=== PATIENT | male | born 1940 | race Caucasian/White ===

== ENCOUNTER → 2018-04-08 12:42 | Outpatient (CLI) | payer MEDICARE, OTHER, SELFPAY ==
--- NOTE | 2018-04-08 12:53 | RAD_ITS ---
STUDY: SWALLOWING STUDY REASON FOR EXAM: Male, 77 years old. Dysphagia. TECHNIQUE: The examination was performed with Speech Pathology in attendance. Under fluoroscopic observation, the patient ingested thin barium, thick barium, barium pudding, and barium coated cracker. FLUOROSCOPY TIME: 1:49 minutes/seconds. 1627 spot images. RADIOLOGIST INVOLVEMENT: Radiologist was present and providing direct supervision. COMPARISON: None. FINDINGS: The following was observed during swallowing of the various mixtures of barium: Thin Barium: Transient penetration with evacuation upon ingestion of thin liquids. This improves with the chin tuck maneuver and small-volume swallows. Barium Pudding: There was no evidence of aspiration or laryngeal penetration. Barium Coated Cracker: There was no evidence of aspiration or laryngeal penetration. RAD/Swallowing Function w/Video IMPRESSION: Penetration and evacuation with ingestion of thin liquids. This improves with the chin tuck maneuver and small-volume swallows. The swallow study findings were discussed with the patient by the speech pathologist at the conclusion of the examination. Please see speech pathology report for more information and recommendations. Electronically Signed: Yobany Colon MD at 13:50 EDT Tel [phone], Service support ,
--- NOTE | 2018-04-08 13:00 | SP.MBSS_ITS ---
PRIMARY / SECONDARY DIAGNOSIS: dysphagia (R13.10) REFERRING PHYSICIAN: Dr. Mason Beauchamp MD CURRENT DIET: regular textures, thin liquids DENTITION: WFL MENTAL STATUS: WNL RESPIRATORY STATUS: O2 via room air PREVIOUS MODIFIED BARIUM SWALLOW STUDY: none REASON FOR REFERRAL: Patient is a 77 year old male referred for a modified barium swallow (MBS) study to objectively assess the Patients oropharyngeal swallow function under fluoroscopy secondary to reported intermittent globus sensation during ingestion of solids textures. Patient reports intermittent coughing with and without intake, attributes to cough drops. 11/24/[address] revealed no acute findings; no metastatic disease. 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 STUDY FINDINGS: Patient participated in a Modified Barium Swallow (MBS) study on 04/07/2018. Dr. Colon was the radiologist present for this evaluation. This study was recorded in the lateral view and images were sent to PACs for storage. The following consistencies were presented to this patient for analysis of oropharyngeal swallow function: thin liquids, pudding, and a regular textured, Lila Doone cookie. Results of the MBS are as follows: PENETRATION / ASPIRATION SCALE (HASTINGS): 1 = does not enter airway 2 = enters airway/above vocal folds/ejected 3 = enters airway/above vocal folds/not ejected 4 = enters airway/contacts vocal folds/ejected 5 = enters airway/contacts vocal folds/not ejected 6 = enters airway/below vocal folds/ejected 7 = enters airway/below vocal folds/not ejected despite effort 8 = enters airway/below vocal folds/no effort PENETRATION / ASPIRATION SCALE (SCORE): Thin liquids via cup (sequential swallows): 4 Thin liquids via cup (single sip): 2 Thin liquids via cup (single sip): 2 Thin liquids via cup (chin tuck): 1 Thin liquids via cup (chin tuck): 1 Thin liquids via cup (chin tuck): 1 Thin liquids via straw (chin tuck): 1 Pudding via spoon: 1 Regular textured cookie: 1 Thin liquids via straw (chin tuck): 1 Thin liquids via straw (chin tuck): 1 IMPRESSION: DIAGNOSIS: mild pharyngeal dysphagia (R13.13) ORAL PHASE CHARACTERIZED BY: LABIAL SEAL: no labial escape TONGUE CONTROL DURING BOLUS MANIPULATION: cohesive bolus between tongue to palatal seal BOLUS PREPARATION / MASTICATION: timely and efficient chewing and mashing BOLUS TRANSPORT / LINGUAL MOTION: brisk tongue motion ORAL RESIDUE: trace residue lining oral structures PHARYNGEAL PHASE CHARACTERIZED BY: INITIATION OF PHARYNGEAL SWALLOW: bolus head in pyriforms at first hyoid excursion SOFT PALATE ELEVATION: no bolus between soft palate and pharyngeal wall LARYNGEAL ELEVATION: complete superior movement of thyroid cartilage with complete approximation of arytenoids cartilage to epiglottic petiole ANTERIOR HYOID EXCURSION: partial anterior movement EPIGLOTTIC MOVEMENT: complete epiglottic inversion LARYNGEAL VESTIBULE CLOSURE AT HEIGHT OF SWALLOW: complete laryngeal vestibule closure with no air/contrast in laryngeal vestibule PHARYNGEAL STRIPPING WAVE: pharyngeal stripping wave present / complete PHARYNGOESOPHAGEAL SEGMENT OPENING: complete distension and complete duration with no obstruction of flow TONGUE BASE RETRACTION: trace column of contrast between tongue base and posterior pharyngeal wall PHARYNGEAL RESIDUE: collection of residue within or on pharyngeal structures ESOPHAGEAL PHASE CHARACTERIZED BY: ESOPHAGEAL BOLUS CLEARANCE IN THE UPRIGHT POSITION: could not view EFFECTS OF TREATMENT STRATEGIES ATTEMPTED: Chin tuck posture = effective Reduced bolus size = effective DIET TEXTURE RECOMMENDATIONS: Will recommend a regular textured, thin liquid diet. COMPENSATORY STRATEGIES RECOMMENDED: Chin tuck, reduced bolus volume, seated upright at 90 degrees during PO intake INTERPRETATION OF RESULTS: Patient presents with mild pharyngeal dysphagia (R13.13). Pharyngeal phase marked by impaired pharyngeal swallow onset timing resulting in suboptimal bolus location upon swallow onset contributing to prandial penetration with thin liquids without execution of the chin tuck posture; reduced closure of the airway during deglutition attributed to reduced anterior hyoid excursion, sufficient laryngeal vestibule pressure generated to expel penetrated material. All deficits ameliorated with execution of chin tuck posture and bolus volume adjustments. Unexplained area of suspected calcification somewhat adjacent to C- 3 cervical vertebra that was noted to move somewhat superiorly and anteriorly during deglutition. Mild cervical osteophytes located at the C-3 to C-6 levels, no effect on pharyngoesophageal motility RECOMMENDATIONS: Patient requires 1-2 additional skilled speech-language intervention targeting continued diet texture management; and more importantly training and implementation of recommended compensatory strategies. ADDITIONAL COMMENTS/RECOMMENDATIONS: Results and recommendations were discussed with the Patient immediately following MBS completion, with the Patient verbalizing understanding and agreement with all recommendations and education provided. IMAGE COUNT: [id number] G-CODES: SWALLOWING [id number] Current Status: CI SWALLOWING [id number] Goal Status: CH SWALLOWING [id number] Discharge Status: CI
== END ==
PROVIDERS: Family Provider Family Medicine; PCP Family Medicine; Visit Provider Otolaryngology
DX: R13.10 Dysphagia, unspecified (principal)
CPT/HCPCS: 74230

== ENCOUNTER → 2018-04-11 08:02 | Outpatient (CLI) | payer MEDICARE, OTHER, SELFPAY ==
--- NOTE | 2018-04-11 08:20 | RAD_ITS ---
STUDY: X-RAY - ESOPHAGUS (BARIUM SWALLOW) WITH FLUOROSCOPY REASON FOR EXAM: Male, 77 years old. One-month history of dysphagia. TECHNIQUE: 18 view(s) of the esophagus were obtained following swallowing of barium. FLUOROSCOPY TIME (if supplied): (0:29) minutes/seconds COMPARISON: None. FINDINGS: There is no demonstrated esophageal foreign body. Circumferential narrowing of the distal esophagus at the level of the gastroesophageal junction. Normal gastroesophageal junction, without a demonstrated hiatal hernia. The patient ingested a 12 mm tablet of barium without any difficulty. There is atherosclerotic calcification of the aortic arch with tortuosity of the descending aorta. Normal visualized pulmonary parenchyma. There are diffuse degenerative changes of the visualized thoracic spine. RAD/Esophagus Only IMPRESSION: Circumferential narrowing of the distal esophagus at the level of the gastroesophageal junction. The patient was able to pass the 12 mm tablet of barium through the distal esophagus.. Electronically Signed: Yobany Colon MD at 9:05 EDT Tel [phone], Service support ,
== END ==
PROVIDERS: Family Provider Family Medicine; PCP Family Medicine; Visit Provider Otolaryngology
DX: R13.10 Dysphagia, unspecified (principal)
CPT/HCPCS: 74220; 92610; G8996; G8997; G8998

== ENCOUNTER → 2018-07-28 13:17 | Outpatient (CLI) | payer MEDICARE, OTHER, SELFPAY ==
--- NOTE | 2018-07-28 13:20 | CT_ITS ---
STUDY: CT MAXILLOFACIAL SINUSES REASON FOR EXAM: Male, 77 years old. Sinusitis RADIATION DOSAGE (If Supplied By Facility): CTDIvol = ( 33.45 ) mGy, DLP = ( 859.99 ) mGycm TECHNIQUE: The patient was scanned in a multi detector CT scanner. High resolution axial imaging was performed without the administration of intravenous contrast material. Sagittal and coronal images were reconstructed. # of Images: 738 Individualized dose optimization techniques were used for this CT. COMPARISON: None. FINDINGS: FRONTAL SINUSES: Normal aeration, without mucosal inflammatory disease. ETHMOIDAL SINUSES: Normal aeration, without mucosal inflammatory disease. MAXILLARY SINUSES: Normal aeration, without mucosal inflammatory disease. SPHENOIDAL SINUSES: Normal aeration, without mucosal inflammatory disease. There is patency of the bilateral maxillary infundibuli with normal uncinate processes, ethmoid bullae, and hiatus semilunaris. Normal bilateral middle turbinates. Normal bilateral inferior turbinates. Normal midline nasal septum. There is patency of the bilateral nasal airways. The visualized osseous structures are normal. The visualized bilateral orbital contents are normal. CT/Sinus/Facial Bone IMPRESSION: No evidence of sinusitis. Electronically Signed: Arjun Bhakta MD at 4:26 EDT Tel , Service support ,
== END ==
PROVIDERS: Family Provider Family Medicine; PCP Family Medicine; Referring Provider Otolaryngology; Visit Provider Otolaryngology
DX: J32.9 Chronic sinusitis, unspecified (principal)
CPT/HCPCS: 70486

== ENCOUNTER 2018-10-04 21:14 | Inpatient (IN) | payer MEDICARE, OTHER, SELFPAY ==
[2018-09-21 15:47] VITALS: BMI 32.6
[2018-10-04] VITALS (11 sets, daily range): BP systolic 140–176; BP diastolic 75–92; PULSE 60–81; RESP 15–25; TEMP 36.3–36.8; O2SAT 92–96; BMI 34.2; BMI 32.7
--- NOTE | 2018-10-04 21:27 | EKG12_ITS ---
Test Reason : REPEAT Blood Pressure : / mmHG Vent. Rate : 065 BPM Atrial Rate : 065 BPM P-R Int : 158 ms QRS Dur : 082 ms QT Int : 438 ms P-R-T Axes : 036 -17 -39 degrees QTc Int : 455 ms Normal sinus rhythm Leftward axis Marked ST abnormality, possible inferior lateral subendocardial injury Abnormal ECG Confirmed by PAUL NAVA, YUNIOR ([id number]), supervising film or videotape editor LAITH THORNTON ([id number]) on 10/07/2018 3:19:28 PM Referred By: LINDSEY Confirmed By:YUNIOR MILLER MD
--- NOTE | 2018-10-04 21:29 | ED.VISSUMM ---
- ER Visit Summary Date of Service: 10/04/18 Chief Complaint: Chest pain History of Present Illness: The patient is a 77 M sudden onset midsternal chest pain rating left shoulder 2 hours ago while leaving a [employer]. Denied nausea dyspnea or diaphoresis. Symptoms was worsening when went home. Took a full dose aspirin. EMS was called, given 2 additional nitroglycerin, symptoms almost gone. States he has been having intermittent chest pains and tingling in hands and feet recently was referred Dr. Jackman on September 21. Reports has a stress test upcoming. States today's pain was different and more severe. History of hypertension hypercholesterolemia. Stroke history with no residuals. No cardiac history. States he smoked when he is 18. Father with [place] at age 51. No recent travel, surgeries, or immobilizations. No history of PE or DVT. Denies any recent cough. Physical Examination: General: Alert and oriented ?3, no acute distress HEENT: Normocephalic, atraumatic. Moist mucosa membranes Neck: supple, nontender. Cardiovascular: Regular rate and rhythm, no murmurs Respiratory: Normal breath sounds, symmetric, no distress Abdomen: Soft, nontender, nondistended Extremities: Nontender, no edema, pulses intact ?4 Neuro: no focal neurological deficits. Test Results: EKG: Sinus rate of 80. There is isolated aVR ST elevation with depressions on inferior lateral leads. Nonspecific T wave inversion in leads III. EKG #2 improving findings. Hemoglobin stable. Troponin 0.3. Chest x-ray negative. Emergency Department Course and Treatment: Patient was almost improved symptoms after nitro by EMS. EKG noted inferior lateral ST depressions with isolated AVR elevation. Placed on Nitropaste he took his full dose aspirin at home prior to arrival. Put a page out to cardiology and spoke with Dr. Lowyr, discussed findings. Discussed he is symptom-free after nitro paste. During discussion labs returned, troponin elevated. Requested repeat EKG was obtained and normal EKGs were sent to him for evaluation. Did recommend 180 mg of Brilinta, heparin drip. Potassium 3.2 which is orally replaced. He recommended observations ICU for close monitoring. He will plan to do heart cath in the morning unless he becomes symptomatic prior to this. He requested a call back if symptoms return. I spoke with hospitalist, Dr. Henry updated on plan of care and calling cardiology if he becomes symptomatic. Treatment Plan: [] Disposition: Admission Impression: 1. NSTEMI 2. Acute coronary syndrome This note was generated with [employer] dictation software. It may contain incorrect words, spelling, and punctuation that were not noted in review of the chart prior to signing ED Disposition - Plan for ED Patient: Disposition: Acute [facility] Chief Complaint: Chest Pain Diagnosis: NSTEMI (non-ST elevated myocardial infarction), Acute coronary syndrome
--- NOTE | 2018-10-04 21:32 | ED.DCSUM_ITS ---
- ER Visit Summary Date of Service: 10/04/18 Chief Complaint: Chest pain History of Present Illness: The patient is a 77 M sudden onset midsternal chest pain rating left shoulder 2 hours ago while leaving a [employer] party. Denied nausea dyspnea or diaphoresis. Symptoms was worsening when went home. Took a full dose aspirin. EMS was called, given 2 additional nitroglycerin, symptoms almost gone. States he has been having intermittent chest pains and tingling in hands and feet recently was referred Dr. Jackman on September 21. Reports has a stress test upcoming. States today's pain was different and more severe. History of hypertension hypercholesterolemia. Stroke history with no residuals. No cardiac history. States he smoked when he is 18. Father with [place] at age 51. No recent travel, surgeries, or immobilizations. No history of PE or DVT. Denies any recent cough. Physical Examination: General: Alert and oriented ?3, no acute distress HEENT: Normocephalic, atraumatic. Moist mucosa membranes Neck: supple, nontender. Cardiovascular: Regular rate and rhythm, no murmurs Respiratory: Normal breath sounds, symmetric, no distress Abdomen: Soft, nontender, nondistended Extremities: Nontender, no edema, pulses intact ?4 Neuro: no focal neurological deficits. Test Results: EKG: Sinus rate of 80. There is isolated aVR ST elevation with depressions on inferior lateral leads. Nonspecific T wave inversion in leads III. EKG #2 improving findings. Hemoglobin stable. Troponin 0.3. Chest x-ray negative. Emergency Department Course and Treatment: Patient was almost improved symptoms after nitro by EMS. EKG noted inferior lateral ST depressions with isolated AVR elevation. Placed on Nitropaste he took his full dose aspirin at home prior to arrival. Put a page out to cardiology and spoke with Dr. Lowry, discussed findings. Discussed he is symptom-free after nitro paste. During discussion labs returned, troponin elevated. Requested repeat EKG was obtained and normal EKGs were sent to him for evaluation. Did recommend 180 mg of Brilinta, heparin drip. Potassium 3.2 which is orally replaced. He recommended observations ICU for close monitoring. He will plan to do heart cath in the morning unless he becomes symptomatic prior to this. He requested a call back if symptoms return. I spoke with hospitalist, Dr. Henry updated on plan of care and calling cardiology if he becomes symptomatic. Treatment Plan: [] Disposition: Admission Impression: 1. NSTEMI 2. Acute coronary syndrome This note was generated with [employer] dictation software. It may contain incorrect words, spelling, and punctuation that were not noted in review of the chart prior to signing ED Disposition - Plan for ED Patient: Disposition: Acute [facility] Chief Complaint: Chest Pain Diagnosis: NSTEMI (non-ST elevated myocardial infarction), Acute coronary syndrome
--- NOTE | 2018-10-04 21:35 | ED.RN ---
NO OLD EKG FOUND.
--- NOTE | 2018-10-04 21:41 | RAD_ITS ---
STUDY: X-RAY CHEST REASON FOR EXAM: Male, 77 years old. Chest pain. TECHNIQUE: Single AP portable view of the chest. COMPARISON: CT of the chest dated November 23, 2016. FINDINGS: Cardiac monitoring leads are present. The lungs are hyperexpanded. There are patchy lucencies particularly at the lung apices that may be the result of emphysema. There is patchy groundglass attenuation and initial thickening present in both lungs. There is no demonstrated pleural abnormality. There is borderline cardiomegaly. Normal mediastinum and christine. There is prominence of the pulmonary hilar arteries with peripheral pulmonary vascular congestion. There is atherosclerotic calcification of the aortic arch with tortuosity. There are diffuse degenerative changes of the visualized thoracic spine. There are degenerative changes of both shoulders. There is no demonstrated abnormality of the visualized soft tissue structures of the upper abdomen. RAD/Chest 1 View (Portable) IMPRESSION: Mild pulmonary congestion. Electronically Signed: Tia Mayo MD at 22:42 EST , Service support ,
[2018-10-04 21:42] LABS: International Normalized Ratio 0.9; Prothrombin Time (Protime)PT. 12.5 SECONDS (11.7-14.9)
[2018-10-04] MEDS: Nitroglycerin Oint 1 INCH PACKET TRANSDERM. (21:43)
[2018-10-04 21:44] LABS: Absolute Lymphocyte Count 1.36 X10^3/ul (0.83-4.51); Absolute Neutrophil Count 5.3 X10^3/uL (2.0-7.7); Basophil# 0.02 X10^3/uL; Basophil% 0.3 % (0-1); Eosinophil# 0.21 X10^3/uL; Eosinophils% 2.8 % (0-5); Hemoglobin 16.4 g/dl (13.0-16.5); Lymphocyte # 1.36 X10^3/ul (4.0); Lymphocyte % 18.3 % (19-41); Mean Corp Hgb Conc 34.2 g/gl (32-36); Mean Corpuscular Hgb 35.3 pg (27.0-32.0); Mean Corpuscular Volume 103.4 fL (80-94); Mean Platelet Vol. 10.5 fl (6.2-12.0); Monocyte# 0.51 X10^3/uL; Monocyte% 6.9 % (0-10); Neutrophil # 5.31 X10^3/uL (2.7-7.7); Neutrophil % 71.4 % (47-70); POSITIVE COUNT NO; POSITIVE DIFFERENTIAL NO; POSITIVE MORPHOLOGY NO; Platelet Count 176 K/mm3 (150-450); RBC Distribution Width CV 13.8 % (11.6-14.6); Red Blood Count 4.64 M/mm3 (4.6-6.2); White Blood Count 7.4 K/mm3 (4.4-11.0)
[2018-10-04 21:52] LABS: Anion Gap 9 (5-15); BUN 19 mg/dL (7-18); BUN/Creat Ratio 15.4 RATIO (10-20); Calcium,Total 8.3 mg/dL (8.5-10.1); Chloride 107 mmol/L (98-107); Creatinine, Serum 1.23 mg/dL (0.70-1.30); EST Glomerular Filtration Rate 61 mL/min (>60); Est Glom Filt Rate - Afr Amer 73 mL/min (>60); Estimated Creatinine Clearance 48.66 ml/min; Glucose 140 mg/dL (74-106); Potassium 3.2 mmol/L (3.5-5.1); Sodium Level 144 mmol/L (136-145)
--- NOTE | 2018-10-04 21:58 | EKG12_ITS ---
Test Reason : CP Blood Pressure : / mmHG Vent. Rate : 080 BPM Atrial Rate : 080 BPM P-R Int : 148 ms QRS Dur : 082 ms QT Int : 404 ms P-R-T Axes : 034 -22 -29 degrees QTc Int : 465 ms Normal sinus rhythm Leftward axis Marked ST abnormality, possibly inferior lateral subendocardial injury Abnormal ECG Confirmed by PAUL NAVA, YUNIOR ([id number]), newspaper editor managing LAITH THORNTON ([id number]) on 10/07/2018 3:20:39 PM Referred By: LINDSEY MORAN Confirmed By:YUNIOR MILLER MD
[2018-10-04] MEDS: TICAGRELOR 90 MG TABLET 180 MG PO (22:15)
[2018-10-04] MEDS: Heparin Injection (Vial) 5,000 UNIT/ML VIAL 4000 UNIT IV (22:19)
[2018-10-04] MEDS: HEPARIN/D5w 25,000 UNITS 25,000 UNITS/250 ML IV.SOLN. 10 UNITS IV (22:20)
--- NOTE | 2018-10-04 22:20 | HP.PCM_ITS ---
Problem List (1) NSTEMI (non-ST elevated myocardial infarction) Status: Acute (2) Essential (primary) hypertension Status: Chronic (3) Hyperlipidemia Status: Chronic History of Present Illness Date of Admission: 10/04/18 Chief Complaint: chest pain The patient is a 77 year old M with a significant history of colorectal cancer status post surgery with colostomy, radiation and chemotherapy; hypertension; hyperlipidemia who presented with progressively worsening left-sided chest pain that started a few hours before presented to the ED. Patient was leaving a libertarian and while walking he began to have sudden onset progressively worsening chest pain. He describes chest pain as sharp and continuous. It is nonradiating. He denies any nausea, vomiting or diaphoresis. His chest pain worsens with exertion and improves with rest. Patient reports that in the past he has had chest pain but not as severe as today. Typically patient take full dose of aspirin every day. On the morning of his admission he took a full day aspirin. Because of chest pain he took an additional dose of full strength aspirin later in the day. The paramedics gave patient 2 tablets of nitroglycerin which resolved his pain. He reports long- standing generalized tingling sensation which also occurs at his chest. Patient was following up with Dr. Jackman outpatient and he had outpatient stress test for October 24 scheduled. At emergency department patient was found to have ST elevation in aVR and ST depression in the inferior leads. Equipment Detailer, Dr. Lowry was consulted and patient was started on heparin bolus and drip; and Brilinta. Nitroglycerin was placed on his chest. Emergency department doctor reports that per Dr. Lowry if patient has chest pain on the night of admission he (Dr. Lowry) should be notified. If patient has no chest pain overnight, cardiology will see patient in a.m. Reportedly patient's father from heart attack at age 51. Patient reports of a brother who had attack in his late 60s. 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 Rectal cancer C20 Concussion S06.0X9A Allergies Penicillins Adverse Reaction (Verified 10/04/18 21:20) Unknown Home Medications: Ambulatory Orders Medication Instructions Recorded Aspirin [Aspirin, Baby] 325 mg PO DAILY@0800 12/24/14 Pravastatin [Pravachol] 80 mg PO DAILY 12/24/14 Triamterene 75MG/Hctz 50MG 0.5 tab PO DAILY 12/24/14 [Maxzide] amlodipine 5 mg tablet 5 mg PO DAILY 09/21/18 captopril 50 mg tablet 100 mg PO BID tab 09/21/18 omega-3 fatty acids 1,000 mg 1,000 mg PO TID 09/21/18 capsule omeprazole 40 mg capsule,delayed 40 mg PO DAILY 09/21/18 release oxybutynin chloride 5 mg tablet 5 mg PO BID 09/21/18 L.acidoph,Paracasei, B.lactis 1 each PO DAILY 10/04/18 [Probiotic] Tramadol HCl [Tramadol HCl ER] 50 mg PO 4X/DAY PRN 10/04/18 Vitamin B Complex [B Complex] 2 each PO DAILY 10/04/18 Surgical History: Surgical History (Last Reviewed 10/05/18 @ 07:44 by Ciaran Henry MD) History of colon resection Onset Date: ~2014 Z98.890, Z90.49 History of colostomy Lives: With Family Smoking Status: Former smoker Alcohol: Occasional - *Family History Maternal Family History: Family History (Last Updated 10/05/18 @ 07:46 by Ciaran Henry MD) Mother Breast cancer Father Heart disease Brother Myocardial infarction Review of Systems Constitutional: Denies: Chills, Fever, Weight Change HEENT: Denies: Head Aches, Sinus Congestion, Sinus Drainage Cardiovascular: Reports: Chest Pain. Denies: Palpitations Respiratory: Denies: Cough, Shortness of breath at rest, Sputum production Gastrointestinal: Denies: Abdominal Pain, Nausea, Vomiting Genitourinary: Denies: Dysuria Musculoskeletal: Denies: Joint Pain, Joint Tenderness Skin: Denies: Rash, Wounds Neurological: Reports: Tingling. Denies: Focal weakness, Numbness Psychiatric: Denies: Anxiety, Depression, Homicidal Ideations, Suicidal Ideations Hematologic/ Lymphatic: Denies: Easy Bruising, Easy Bleeding VTE Information - Inpt Only VTE Present on Admission: No VTE Mechan Device Prophylaxis: None VTE Pharm Prophylaxis ordered?: No Reason prophylaxis not ordered:: Treatment Not Indicated - Patient on heparin drip for non-STEMI Patient Problems: Active and Suspected Problems (Last Reviewed 10/05/18 @ 07:44 by Ciaran Henry MD) NSTEMI (non-ST elevated myocardial infarction) (Acute) Acute coronary syndrome (Acute) - Physical Exam General: Alert, Oriented x3, Cooperative HEENT: Atraumatic, PERRLA, EOMI, Normocephalic Neck: Supple, No JVD, Negative Carotid Bruits Lungs: Clear to auscultation, Normal air movement, Tachypneic Cardiovascular: Regular rate, No murmurs Abdomen: Bowel Sounds Present, Soft, Non Tender, - - Colostomy in place. Extremities: No edema, Capillary Refill Less than 3 Seconds Skin: No rashes, No breakdown Musculoskeletal: No Tenderness to Palpation of Joints or Extremities Neurological: Neuro grossly intact Psych/Mental Status: Normal Affect, Appropriate Vital Signs Temp Pulse Resp BP Pulse Ox 98.2 F 67 22 H 144/78 H 92 10/04/18 21:15 10/04/18 21:43 10/04/18 21:15 10/04/18 21:43 10/04/18 21:15 Oxygen Delivery Method Room Air Weight: 102.058 kg Body Mass Index (BMI) 34.2 Laboratory Tests Past 24 Hrs 10/04/18 10/04/18 10/04/18 21:25 21:25 21:25 WBC 7.4 RBC 4.64 Hgb 16.4 Hct 48.0 MCV 103.4 H MCH 35.3 H MCHC 34.2 RDW 13.8 RDW Differential 52.0 H Plt Count 176 MPV 10.5 Immature Gran % (Auto) 0.300 Neut % (Auto) 71.4 H Lymph % (Auto) 18.3 L [place] % (Auto) 6.9 Eos % (Auto) 2.8 Baso % (Auto) 0.3 Absolute Neuts (auto) 5.3 Absolute Lymphs (auto) 1.36 Total Counted Not Reportable PT 12.5 INR 0.9 APTT 30.0 Sodium 144 Potassium 3.2 L Chloride 107 Carbon Dioxide 28.0 Anion Gap 9 BUN 19 H Creatinine 1.23 Estim Creat Clear Calc 48.66 Est GFR (MDRD) Af Amer 73 Est GFR (MDRD) Non-Af 61 BUN/Creatinine Ratio 15.4 Glucose 140 H Calcium 8.3 L Troponin I 0.371 H Assessment/Plan All Active Problems (Last Reviewed 10/05/18 @ 07:44 by Ciaran Henry MD) NSTEMI (non-ST elevated myocardial infarction) (Acute) Acute coronary syndrome (Acute) Claudication (Acute) Dyspnea on exertion (Acute) The patient is a 77 year old M with a significant history of colorectal cancer status post surgery with colostomy, radiation and chemotherapy; hypertension; hyperlipidemia who presented with progressively worsening left-sided chest pain and found to have ST elevation in aVR and ST depression in the inferior leads; and also elevated troponin. NSTEMI Patient with chest pain; abnormal EKG and elevated troponin. Admit to a monitored bed on ICU CXR independently reviewed confirms no acute cardiopulmonary process. EKG independently reviewed confirms ST elevation in aVR and ST depression in inferior leads. Received a total dose of 648 mg of aspirin on the day of admission ASA 81 mg p.o. daily ordered Home Pravastatin discontinued. Lipitor 80 mg ordered. Fasting lipids ordered. Continue heparin infusion started at the emergency department. Patient already received bolus heparin at the ED. SL NTG 0.4 mg prn as needed for chest pain Serial cardiac enzymes Stat EKG as needed for chest pain Patient was admitted the night. Cardiology to see patient in a.m. if patient does not have any chest pain on the night of admission. Hypertension On admission blood pressure was not within goal Home amlodipine; captopril; triamterene/hydrochlorothiazide continued We will add low-dose Coreg twice daily. Trend blood pressure and adjust blood pressure medication as necessary Overactive bladder Oxybutynin continued. History of Colorectal cancer status post colectomy with colostomy; radiation and chemotherapy. Reports that colorectal cancer is in remission. Ostomy nurse consult for colostomy care and recommendations. DVT prophylaxis Not indicated patient because patient is already on treatment dose for heparin for NSTEMI. Code Visit Inpatient E&M: 64267 Init Hosp L3
--- NOTE | 2018-10-04 23:37 | EKG12_ITS ---
Test Reason : AM EKG Blood Pressure : / mmHG Vent. Rate : 069 BPM Atrial Rate : 069 BPM P-R Int : 164 ms QRS Dur : 080 ms QT Int : 444 ms P-R-T Axes : 045 019 -03 degrees QTc Int : 475 ms Normal sinus rhythm Low voltage QRS Nonspecific ST abnormality Abnormal ECG Confirmed by PAUL NAVA, YUNIOR ([id number]), sound editor LAITH THORNTON ([id number]) on 10/07/2018 3:43:30 PM Referred By: FRANCIE Confirmed By:YUNIOR MILLER MD
[2018-10-05] VITALS (25 sets, daily range): BP systolic 130–178; BP diastolic 74–112; PULSE 62–95; RESP 16–29; TEMP 36.3–37.4; O2SAT 93–97
[2018-10-05] MEDS: Nitroglycerin Oint 1 INCH PACKET TRANSDERM. ×3 (00:29→14:10)
[2018-10-05] MEDS: Carvedilol 3.125 MG TABLET PO ×2 (02:39→08:05)
[2018-10-05] MEDS: 0.9% Normal Saline 1,000 ML 75 ML IV (02:39)
[2018-10-05] MEDS: 0.9% NaCl Peripheral Flush Adult/Peds IV ×2 (02:40→08:04)
[2018-10-05 05:02] LABS: Hematocrit 40.9 % (40-54); Hemoglobin 14.9 g/dl (13.0-16.5); Mean Corp Hgb Conc 36.4 g/gl (32-36); Mean Corpuscular Hgb 36.7 pg (27.0-32.0); Mean Corpuscular Volume 100.7 fL (80-94); Mean Platelet Vol. 10.8 fl (6.2-12.0); Platelet Count 173 K/mm3 (150-450); RBC Distribution Width CV 13.3 % (11.6-14.6); RBC Distribution Width SD 49.6 fl (35.1-43.9); Red Blood Count 4.06 M/mm3 (4.6-6.2); Scan Indicated on CBC? Y/N NO
[2018-10-05 05:09] LABS: Partial Thromboplast Time 58.4 Seconds (24.1-36.2)
[2018-10-05 05:15] LABS: Anion Gap 9 (5-15); BUN 18 mg/dL (7-18); BUN/Creat Ratio 17.5 RATIO (10-20); Calcium,Total 8.1 mg/dL (8.5-10.1); Chloride 108 mmol/L (98-107); Creatinine, Serum 1.03 mg/dL (0.70-1.30); EST Glomerular Filtration Rate 74 mL/min (>60); Est Glom Filt Rate - Afr Amer 90 mL/min (>60); Estimated Creatinine Clearance 58.11 ml/min; Glucose 102 mg/dL (74-106); Potassium 3.3 mmol/L (3.5-5.1); Sodium Level 145 mmol/L (136-145)
--- NOTE | 2018-10-05 07:51 | PCM.CONS.C ---
Reason for Consult Date of Consultation: 10/05/18 History of Present Illness: The patient is a 77 year old white male with a past medical history including hypertension, hyperlipidemia, rectal carcinoma (in remission), who is being referred for concerns of an acute non-ST segment elevation TN. He has previously been evaluated in the outpatient setting based upon bilateral upper extremity tingling sensations. He is tentatively been scheduled for an outpatient exercise tolerance test/imaging study in October 2018. In the interim he presented to the hospital yesterday after experiencing chest discomfort, bilateral upper extremity tingling sensation, and feeling somewhat dyspneic. He was noted to have on emergency department evaluation and abnormal ECG demonstrating sinus rhythm with ST segment changes demonstrating possible elevation in aVR and ST segment depression in the inferior lateral leads. He was placed in the ICU for further evaluation care. His cardiac enzymes have been followed and his troponin I levels are positive. His ECG changes appear to be resolving. He was placed on medical management which included aspirin, Brilinta, IV heparin, beta-blockers, in addition to lipid-lowering agents. At the present time he states he is feeling better with no ongoing chest discomfort. He states he has not had any cardiovascular evaluation in the past to the best of his knowledge. [] Past Medical History Allergies/Adverse Reactions: Allergies Penicillins Adverse Reaction (Verified 10/04/18 21:20) Unknown Home Medications: Ambulatory Orders Medication Instructions Recorded Aspirin [Aspirin, Baby] 325 mg PO DAILY@0800 12/24/14 Pravastatin [Pravachol] 80 mg PO DAILY 12/24/14 Triamterene 75MG/Hctz 50MG 0.5 tab PO DAILY 12/24/14 [Maxzide] amlodipine 5 mg tablet 5 mg PO DAILY 09/21/18 captopril 50 mg tablet 100 mg PO BID tab 09/21/18 omega-3 fatty acids 1,000 mg 1,000 mg PO TID 09/21/18 capsule omeprazole 40 mg capsule,delayed 40 mg PO DAILY 09/21/18 release oxybutynin chloride 5 mg tablet 5 mg PO BID 09/21/18 L.acidoph,Paracasei, B.lactis 1 each PO DAILY 10/04/18 [Probiotic] Tramadol HCl [Tramadol HCl ER] 50 mg PO 4X/DAY PRN 10/04/18 Vitamin B Complex [B Complex] 2 each PO DAILY 10/04/18 Past Medical History (Chronic Problems): Chronic Problems (Last Reviewed 10/05/18 @ 07:44 by Ciaran Henry MD) Chest pain (Chronic) Essential (primary) hypertension (Chronic) Hyperlipidemia (Chronic) Lives: Spouse/ Significant Other Smoking Status: Former smoker Tobacco Use: Non-smoker Alcohol: None Drugs: None Review of Systems - Review of Systems General: Denies: Fever, Night Sweats, Fatigue Cardiovascular: Reports: Chest Discomfort, Chest Discomfort at Rest, Chest Discomfort with Exertion, Shortness of Breath, Shortness of Breath at Rest, Shortness of Breath with Exertion. Denies: Orthopnea, PND, Peripheral Edema, Palpitations, Lightheadedness, Dizziness, Near Syncope, Syncope Respiratory: Denies: Cough, Sputum Production, Hemoptysis Gastrointestinal: Denies: Hematemesis, Hematochezia, Melena Genitourinary: Denies: Dysuria, Hematuria Skin: Denies: Rash Subjectve: This is a 77-year-old white male who appears to be resting comfortably at the moment in no acute distress. Objective: Vital Signs Temp Pulse Resp BP Pulse Ox 99.3 F H 71 24 H 152/85 H 94 10/05/18 04:00 10/05/18 07:00 10/05/18 07:00 10/05/18 07:00 10/05/18 07:00 Oxygen Flow Rate (L/min) 2 Oxygen Delivery Method Room Air Weight: 216 lb 4.375 oz Body Mass Index (BMI) 32.7 Intake and Output for Last 24 Hours 10/03/18 10/04/18 10/05/18 23:59 23:59 23:59 Intake Total 277.6 / 277.6 Output Total 650 / 650 Balance -372.4 / -372.4 General: Awake, Alert, Oriented x 3, Cooperative, No Acute Distress HEENT: Atraumatic, Normocephalic, PERRL, EOMI, Sclera Non Icteric Oral: Moist Mucosa Neck: Supple, Good ROM, No JVD Lungs: Clear to auscultation Cardiovascular: Regular Rhythm, Normal S1, Normal S2 Vascular: No Carotid Bruits Abdomen: Bowel Sounds Present, Soft, Non Tender Extremities: No Cyanosis, No Clubbing, No edema Neurological: No Focal Motor or Sensory Deficit Psych/Mental Status: Appropriate, Normal Affect 10/04/18 21:25: WBC 7.4, RBC 4.64, Hgb 16.4, Hct 48.0, MCV 103.4 H, MCH 35.3 H, MCHC 34.2, RDW 13.8, RDW Differential 52.0 H, Plt Count 176, MPV 10.5, Immature Gran % (Auto) 0.300, Neut % (Auto) 71.4 H, Lymph % (Auto) 18.3 L, [place] % (Auto) 6.9, Eos % (Auto) 2.8, Baso % (Auto) 0.3, Absolute Neuts (auto) 5.3, Total Counted Not Reportable 10/04/18 21:25: PT 12.5, INR 0.9, APTT 30.0 10/04/18 21:25: Sodium 144, Potassium 3.2 L, Chloride 107, Carbon Dioxide 28.0, Anion Gap 9, BUN 19 H, Creatinine 1.23, Est GFR (MDRD) Af Amer 73, Est GFR (MDRD) Non-Af 61, BUN/Creatinine Ratio 15.4, Glucose 140 H, Calcium 8.3 L, Troponin I 0.371 H 10/05/18 00:25: Troponin I 5.990 H* 10/05/18 03:10: Troponin I 8.520 H* 10/05/18 04:45: WBC 8.0, RBC 4.06 L, Hgb 14.9, Hct 40.9, MCV 100.7 H, MCH 36.7 H, MCHC 36.4 H, RDW 13.3, RDW Differential 49.6 H, Plt Count 173, MPV 10.8 10/05/18 04:45: Sodium 145, Potassium 3.3 L, Chloride 108 H, Carbon Dioxide 28.0, Anion Gap 9, BUN 18, Creatinine 1.03, Est GFR (MDRD) Af Amer 90, Est GFR (MDRD) Non-Af 74, BUN/Creatinine Ratio 17.5, Glucose 102, Calcium 8.1 L 10/05/18 04:45: APTT 58.4 H Rhythm: Rhythm EKG: As noted above CXR: Preliminary evaluation: No acute cardiopulmonary disease process: Please see official report Assessment/Plan 1. Non-ST segment elevation TN The patient presents with concerns of a non-ST segment elevation TN. Is in time he appears to be symptomatically improved. He is going to continue to be monitored. He will continue medical management with adjustment as needed. It was felt the patient should be considered for further evaluation with diagnostic cardiac catheterization. The procedure and risks were discussed with him. He was agreeable to this approach. 2. Hypertension The patient states he has a history of hypertension. He states he has been treated for it and his blood pressures been under reasonably good control. 3. Hyperlipidemia He will continue lipid-lowering therapy. 4. Rectal carcinoma The patient is being followed by hematology/oncology. Based upon his last outpatient office visit note it appears that he is thought to be in remission and is scheduled for routine follow-up with routine laboratory studies. This note was generated using a voice recognition system and there may be incorrect words, spelling or punctuation that were not noted when reviewing the office note prior to saving.
[2018-10-05] MEDS: TICAGRELOR 90 MG TABLET PO (08:05)
[2018-10-05] MEDS: Aspirin E.C. 81 MG Tablet PO (08:05)
[2018-10-05 08:31] LABS: Cholesterol 160 mg/dL (200); High Density Lipoprotein 33 mg/dL; Triglycerides 110 mg/dL; Very Low Density Lipoprotein 22 mg/dL (5-40)
[2018-10-05] MEDS: Potassium Chloride 10mEq/100mL 10 MEQ/100 ML IV.SOLN. 100 MEQ IV BOLUS ×3 (09:23→14:08)
--- NOTE | 2018-10-05 09:37 | PCM.PN.HOSP ---
Patient Problems: Active and Suspected Problems (Last Reviewed 10/05/18 @ 07:44 by Ciaran Henry MD) NSTEMI (non-ST elevated myocardial infarction) (Acute) Acute coronary syndrome (Acute) Subjective: Patient was seen and examined. No acute events overnight. Denies chest pain or dizziness or palpitations. Going for cardiac cath today. Vitals/I&O's: Vital Signs Temp Pulse Resp BP Pulse Ox 99.3 F H 71 24 H 152/85 H 94 10/05/18 04:00 10/05/18 07:00 10/05/18 07:00 10/05/18 07:00 10/05/18 07:00 Oxygen Flow Rate (L/min) 2 Oxygen Delivery Method Room Air Weight: 98.1 kg Body Mass Index (BMI) 32.7 Intake and Output for Last 24 Hours 10/03/18 10/04/18 10/05/18 23:59 23:59 23:59 Intake Total 277.6 / 277.6 Output Total 650 / 650 Balance -372.4 / -372.4 General: Alert, Oriented x3, Cooperative, - - obese HEENT: Atraumatic, PERRLA, EOMI, Normocephalic Oral: Moist Mucosa Neck: Supple, No JVD, Negative Carotid Bruits Lungs: Clear to auscultation, Normal air movement Cardiovascular: Regular rate, No murmurs Abdomen: Bowel Sounds Present, Soft, Non Tender, Non-Distended, No Hepato-splenomegaly Extremities: No edema Skin: No rashes Musculoskeletal: No Tenderness to Palpation of Joints or Extremities Neurological: Cranial nerves II-XII grossly intact, Neuro grossly intact, Motor Exam 5/5 strength throughout Psych/Mental Status: Normal Affect, Appropriate Laboratory Results 10/04/18 21:25: WBC 7.4, RBC 4.64, Hgb 16.4, Hct 48.0, MCV 103.4 H, MCH 35.3 H, MCHC 34.2, RDW 13.8, RDW Differential 52.0 H, Plt Count 176, MPV 10.5, Immature Gran % (Auto) 0.300, Neut % (Auto) 71.4 H, Lymph % (Auto) 18.3 L, [place] % (Auto) 6.9, Eos % (Auto) 2.8, Baso % (Auto) 0.3, Absolute Neuts (auto) 5.3, Absolute Lymphs (auto) 1.36, Total Counted Not Reportable 10/04/18 21:25: PT 12.5, INR 0.9, APTT 30.0 10/04/18 21:25: Sodium 144, Potassium 3.2 L, Chloride 107, Carbon Dioxide 28.0, Anion Gap 9, BUN 19 H, Creatinine 1.23, Estim Creat Clear Calc 48.66, Est GFR (MDRD) Af Amer 73, Est GFR (MDRD) Non-Af 61, BUN/Creatinine Ratio 15.4, Glucose 140 H, Calcium 8.3 L, Troponin I 0.371 H 10/05/18 00:25: Troponin I 5.990 H* 10/05/18 03:10: Troponin I 8.520 H* 10/05/18 04:45: WBC 8.0, RBC 4.06 L, Hgb 14.9, Hct 40.9, MCV 100.7 H, MCH 36.7 H, MCHC 36.4 H, RDW 13.3, RDW Differential 49.6 H, Plt Count 173, MPV 10.8 10/05/18 04:45: Sodium 145, Potassium 3.3 L, Chloride 108 H, Carbon Dioxide 28.0, Anion Gap 9, BUN 18, Creatinine 1.03, Estim Creat Clear Calc 58.11, Est GFR (MDRD) Af Amer 90, Est GFR (MDRD) Non-Af 74, BUN/Creatinine Ratio 17.5, Glucose 102, Calcium 8.1 L 10/05/18 04:45: APTT 58.4 H 10/05/18 04:45: Triglycerides 110, Cholesterol 160, LDL Cholesterol 105, VLDL Cholesterol 22, HDL Cholesterol 33 L Current Medications Aspirin (Ecotrin) 81 mg PO DAILY@0800 [facility] Last Admin: 10/05/18 08:05 Dose: 81 mg Atorvastatin Calcium (Lipitor) 80 mg PO QHS [facility] Captopril (Capoten) 100 mg PO BID [facility] Carvedilol (Coreg) 3.125 mg PO BID [facility] Last Admin: 10/05/18 08:05 Dose: 3.125 mg Heparin Sodium (Porcine) (Heparin Na) 0 unit IV UD PRN; Protocol Sodium Chloride () 1,000 mls @ 75 mls/hr IV .[id number] [facility] Stop: 10/05/18 12:56 Last Admin: 10/05/18 02:39 Dose: 75 mls/hr Sodium Chloride () 250 mls @ 15 mls/hr IV .[id number] PRN PRN Reason: SALINE FLUSH Potassium Chloride () 10 meq in 100 mls @ 100 mls/hr IV BOLUS Q1H [facility] Stop: 10/05/18 11:59 Last Admin: 10/05/18 09:23 Dose: 100 mls/hr Sodium Chloride () 1,000 mls @ 15 mls/hr IV .Q48H [facility] Heparin Sodium/Dextrose () 25,000 units in 250 mls @ 0 mls/hr IV .Q0M [facility]; Protocol Magnesium Hydroxide (Milk Of Magnesia) 30 ml PO DAILY PRN PRN PRN Reason: Constipation Nitroglycerin (Nitrobid) 1 inch TRANSDERM. Q6 [facility] Last Admin: 10/05/18 05:43 Dose: 1 inch Non-Formulary Medication (Omeprazole) 40 mg PO DAILY [facility] Ondansetron HCl (Zofran) 4 mg IV Q8H PRN PRN PRN Reason: NAUSEA Oxybutynin [facility] Sodium Chloride () 5 - 15 ml IV UD PRN PRN Reason: SALINE FLUSH Last Admin: 10/05/18 08:04 Dose: 10 ml Ticagrelor (Brilinta) 90 mg PO BID [facility] Last Admin: 10/05/18 08:05 Dose: 90 mg Triamterene/HCTZ (Maxzide) 0.5 tablet PO DAILY [facility] Medical Necessity - Tobacco Use Smoking Status: Former smoker Tobacco Use: Non-smoker Assessment/Plan All Active Problems (Last Reviewed 10/05/18 @ 07:44 by Ciaran Henry MD) NSTEMI (non-ST elevated myocardial infarction) (Acute) Acute coronary syndrome (Acute) Claudication (Acute) Dyspnea on exertion (Acute) 77-year-old male with past medical history of colon cancer status post colostomy, radiation therapy, hypertension, hyperlipidemia admitted with progressive chest pain and found to have EKG changes with ST segment elevation in aVR and depression in inferolateral leads with T wave inversions in the inferolateral leads as well as elevated troponins. 1. Acute NSTEMI, stable vitals, on aspirin, statin, beta-deion, Brilinta, going for cardiac cath this morning. 2. Hypertension, fairly controlled for the most part, continue to monitor, continue on beta-blockers, Captopril, Maxzide. 3. Overactive bladder, on oxybutynin. 4. H/o colorectal CA, s/p surgery, radiation and chemotherapy 5. DVT PPx- SCDs for now, will start Heparin likely from tomorrow. Code Visit Inpatient E&M: 09843 Subs Hosp L2
--- NOTE | 2018-10-05 09:43 | PN_ITS ---
Patient Problems: Active and Suspected Problems (Last Reviewed 10/05/18 @ 07:44 by Ciaran Henry MD) NSTEMI (non-ST elevated myocardial infarction) (Acute) Acute coronary syndrome (Acute) Subjective: Patient was seen and examined. No acute events overnight. Denies chest pain or dizziness or palpitations. Going for cardiac cath today. Vitals/I&O's: Vital Signs Temp Pulse Resp BP Pulse Ox 99.3 F H 71 24 H 152/85 H 94 10/05/18 04:00 10/05/18 07:00 10/05/18 07:00 10/05/18 07:00 10/05/18 07:00 Oxygen Flow Rate (L/min) 2 Oxygen Delivery Method Room Air Weight: 98.1 kg Body Mass Index (BMI) 32.7 Intake and Output for Last 24 Hours 10/03/18 10/04/18 10/05/18 23:59 23:59 23:59 Intake Total 277.6 / 277.6 Output Total 650 / 650 Balance -372.4 / -372.4 General: Alert, Oriented x3, Cooperative, - - obese HEENT: Atraumatic, PERRLA, EOMI, Normocephalic Oral: Moist Mucosa Neck: Supple, No JVD, Negative Carotid Bruits Lungs: Clear to auscultation, Normal air movement Cardiovascular: Regular rate, No murmurs Abdomen: Bowel Sounds Present, Soft, Non Tender, Non-Distended, No Hepato- splenomegaly Extremities: No edema Skin: No rashes Musculoskeletal: No Tenderness to Palpation of Joints or Extremities Neurological: Cranial nerves II-XII grossly intact, Neuro grossly intact, Motor Exam 5/5 strength throughout Psych/Mental Status: Normal Affect, Appropriate Laboratory Results 10/04/18 21:25: WBC 7.4, RBC 4.64, Hgb 16.4, Hct 48.0, MCV 103.4 H, MCH 35.3 H, MCHC 34.2, RDW 13.8, RDW Differential 52.0 H, Plt Count 176, MPV 10.5, Immature Gran % (Auto) 0.300, Neut % (Auto) 71.4 H, Lymph % (Auto) 18.3 L, [place] % (Auto) 6.9, Eos % (Auto) 2.8, Baso % (Auto) 0.3, Absolute Neuts (auto) 5.3, Absolute Lymphs (auto) 1.36, Total Counted Not Reportable 10/04/18 21:25: PT 12.5, INR 0.9, APTT 30.0 10/04/18 21:25: Sodium 144, Potassium 3.2 L, Chloride 107, Carbon Dioxide 28.0, Anion Gap 9, BUN 19 H, Creatinine 1.23, Estim Creat Clear Calc 48.66, Est GFR (MDRD) Af Amer 73, Est GFR (MDRD) Non-Af 61, BUN/Creatinine Ratio 15.4, Glucose 140 H, Calcium 8.3 L, Troponin I 0.371 H 10/05/18 00:25: Troponin I 5.990 H* 10/05/18 03:10: Troponin I 8.520 H* 10/05/18 04:45: WBC 8.0, RBC 4.06 L, Hgb 14.9, Hct 40.9, MCV 100.7 H, MCH 36.7 H , MCHC 36.4 H, RDW 13.3, RDW Differential 49.6 H, Plt Count 173, MPV 10.8 10/05/18 04:45: Sodium 145, Potassium 3.3 L, Chloride 108 H, Carbon Dioxide 28.0, Anion Gap 9, BUN 18, Creatinine 1.03, Estim Creat Clear Calc 58.11, Est GFR (MDRD) Af Amer 90, Est GFR (MDRD) Non-Af 74, BUN/Creatinine Ratio 17.5, Glucose 102, Calcium 8.1 L 10/05/18 04:45: APTT 58.4 H 10/05/18 04:45: Triglycerides 110, Cholesterol 160, LDL Cholesterol 105, VLDL Cholesterol 22, HDL Cholesterol 33 L Current Medications Aspirin (Ecotrin) 81 mg PO DAILY@0800 [facility] Last Admin: 10/05/18 08:05 Dose: 81 mg Atorvastatin Calcium (Lipitor) 80 mg PO QHS [facility] Captopril (Capoten) 100 mg PO BID [facility] Carvedilol (Coreg) 3.125 mg PO BID [facility] Last Admin: 10/05/18 08:05 Dose: 3.125 mg Heparin Sodium (Porcine) (Heparin Na) 0 unit IV UD PRN; Protocol Sodium Chloride () 1,000 mls @ 75 mls/hr IV .[id number] [facility] Stop: 10/05/18 12:56 Last Admin: 10/05/18 02:39 Dose: 75 mls/hr Sodium Chloride () 250 mls @ 15 mls/hr IV .[id number] PRN PRN Reason: SALINE FLUSH Potassium Chloride () 10 meq in 100 mls @ 100 mls/hr IV BOLUS Q1H [facility] Stop: 10/05/18 11:59 Last Admin: 10/05/18 09:23 Dose: 100 mls/hr Sodium Chloride () 1,000 mls @ 15 mls/hr IV .Q48H MARLO Heparin Sodium/Dextrose () 25,000 units in 250 mls @ 0 mls/hr IV .Q0M [facility]; Protocol Magnesium Hydroxide (Milk Of Magnesia) 30 ml PO DAILY PRN PRN PRN Reason: Constipation Nitroglycerin (Nitrobid) 1 inch TRANSDERM. Q6 [facility] Last Admin: 10/05/18 05:43 Dose: 1 inch Non-Formulary Medication (Omeprazole) 40 mg PO DAILY [facility] Ondansetron HCl (Zofran) 4 mg IV Q8H PRN PRN PRN Reason: NAUSEA Oxybutynin [facility] Sodium Chloride () 5 - 15 ml IV UD PRN PRN Reason: SALINE FLUSH Last Admin: 10/05/18 08:04 Dose: 10 ml Ticagrelor (Brilinta) 90 mg PO BID [facility] Last Admin: 10/05/18 08:05 Dose: 90 mg Triamterene/HCTZ (Maxzide) 0.5 tablet PO DAILY [facility] Medical Necessity - Tobacco Use Smoking Status: Former smoker Tobacco Use: Non-smoker Assessment/Plan All Active Problems (Last Reviewed 10/05/18 @ 07:44 by Ciaran Henry MD) NSTEMI (non-ST elevated myocardial infarction) (Acute) Acute coronary syndrome (Acute) Claudication (Acute) Dyspnea on exertion (Acute) 77-year-old male with past medical history of colon cancer status post colostomy, radiation therapy, hypertension, hyperlipidemia admitted with progressive chest pain and found to have EKG changes with ST segment elevation in aVR and depression in inferolateral leads with T wave inversions in the inferolateral leads as well as elevated troponins. 1. Acute NSTEMI, stable vitals, on aspirin, statin, beta-deion, Brilinta, going for cardiac cath this morning. 2. Hypertension, fairly controlled for the most part, continue to monitor, continue on beta-blockers, Captopril, Maxzide. 3. Overactive bladder, on oxybutynin. 4. H/o colorectal CA, s/p surgery, radiation and chemotherapy 5. DVT PPx- SCDs for now, will start Heparin likely from tomorrow. Code Visit Inpatient E&M: 03948 Subs Hosp L2
--- NOTE | 2018-10-05 10:10 | NURSING ---
Was asked to see patient for colostomy care. patient has a history of rectal cancer. pt states that he has a lady friend who changes his appliance. he believes she changes it every 4 days. states he thinks that appliance was changed the day he came in to the hospital. appliance is intact at this time. no signs of leak. patient does not have any of his appliances with him. will change as needed. patient is aware that we do not carry the same appliances that he currently uses. pt denies needs. pt is getting a heart cath later today.
--- NOTE | 2018-10-05 10:53 | CASEMGMT ---
WON HO NOTE: Pt has MCR. Pt is able to transfer to any tertiary care hospital if transfer is recommended. Khushboo NYEN RN CM
--- NOTE | 2018-10-05 11:05 | CASEMGMT ---
SW met w/pt and daughter Bouchra in room to review prior level of function and any discharge needs. 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 Daughter states that she lives w/pt, though pt is still very independent. Pt uses no DME other than the colostomy bag. Pt able to cook and clean, organizes his own medications, drives, independent w/ADL's. Daughter does help w/cooking and cleaning at times though she states pt tries to be as independent as possible. Pt states his lady friend Elma helps with his colostomy, assists to change the bag every five days. Pt had home health care briefly after getting the colostomy in 2014, and Elma learned after a couple of weeks how to care for it. Pt has never been to a senior care. Pt states had cancer and has been cancer free since 2016. Pt's PCP is Dr. Seay, pt gets medications from [facility] in [place]. Pt has Medicare and a secondary insurance, does have Medicare Part D--he thinks it is through [employer]. Pt states it is on file at [facility]. Pt anticipates being able to return home at discharge, and no homegoing needs are anticipated. SW explained if pt is put on a blood thinner, SW/VIC can check the cost for pt and let the pt know. Pt states understanding. JULIO Ramirez, LICENSED MENTAL HEALTH COUNSELOR
--- NOTE | 2018-10-05 13:28 | DCINST_ITS ---
- Discharge Diagnoses Current Active Problems: Current Active and Chronic Problems (Last Reviewed 10/05/18 @ 07:44 by Ciaran Henry MD) NSTEMI (non-ST elevated myocardial infarction) (Acute) Acute coronary syndrome (Acute) Reason(s) for Visit for Discharge Instructions: Chest pain You will use the following diet at home:: Calorie/Carbohydrate Controlled (specify 1200, 1400, etc) Your food should be the consistency of: Regular Your liquids should be the consistency of: Regular/Thin Discharge Activity: Return to Normal Activity Allergies/Adverse Reactions: Allergies Penicillins Adverse Reaction (Verified 10/04/18 21:20) Unknown Medications to take at Discharge Aspirin [Aspirin, Baby] 325 mg PO DAILY@0800 12/24/14 Pravastatin [Pravachol] 80 mg PO DAILY 12/24/14 Triamterene 75MG/Hctz 50MG [Maxzide] 0.5 tab PO DAILY 12/24/14 amlodipine 5 mg tablet 5 mg PO DAILY 09/21/18 captopril 50 mg tablet 100 mg PO BID tab 09/21/18 omega-3 fatty acids 1,000 mg capsule 1,000 mg PO TID 09/21/18 omeprazole 40 mg capsule,delayed release 40 mg PO DAILY 09/21/18 oxybutynin chloride 5 mg tablet 5 mg PO BID 09/21/18 L.acidoph,Paracasei, B.lactis [Probiotic] 1 each PO DAILY 10/04/18 Tramadol HCl [Tramadol HCl ER] 50 mg PO 4X/DAY PRN 10/04/18 Vitamin B Complex [B Complex] 2 each PO DAILY 10/04/18 Primary Care Physician: Hao Seay DO [Primary Care Provider] - Please follow up with your Primary Care Physician in: within 2 weeks of discharge Test Results: Test results from this visit will be discussed in further detail at your follow- up appointment, if applicable. Proposed Discharge Date: 10/05/18
--- NOTE | 2018-10-05 13:28 | PCM.DC.SUM ---
Discharge Date and Diagnosis Date of Admission: 10/04/18 Date of Discharge: 10/05/18 - Primary Discharge Diagnosis Active and Suspected Problems (Last Reviewed 10/05/18 @ 07:44 by Ciaran Henry MD) NSTEMI (non-ST elevated myocardial infarction) (Acute) Acute coronary syndrome (Acute) - Secondary Discharge Diagnosis Chronic Problems (Last Reviewed 10/05/18 @ 07:44 by Ciaran Henry MD) Chest pain (Chronic) Essential (primary) hypertension (Chronic) Hyperlipidemia (Chronic) Hospital Course and Treatment Imaging Results: Clinical Impression(s) from Imaging Studies Chest X-Ray 10/04/18 21:41 IMPRESSION: Mild pulmonary congestion. 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 Cardiology Operations: None Procedures: 2-D Echocardiogram, Cardiac catheterization Summary of Care Provided: 77-year-old male with past medical history of colon cancer status post colostomy, radiation therapy, hypertension, hyperlipidemia admitted with progressive chest pain and found to have EKG changes with ST segment elevation in aVR and depression in inferolateral leads with T wave inversions in the inferolateral leads as well as elevated troponins. Patient was admitted to the telemetry bed. Cardiology was consulted. He had a LHC which showed 90% stenosis of left main, 50-75% stenosis of proximal LAD, 50% stenosis of mid LAD-distal, 50% stenosis of proximal circumflex artery, 90% stenosis of obtuse marginal and total occlusion of proximal RCA. He was referred to [facility] for evaluation for CABG Subjective: See progress note of the day Objective: See progress note of the day - Physical Exam Vital Signs Temp Pulse Resp BP Pulse Ox 99.0 F 81 25 H 140/81 H 95 10/05/18 08:00 10/05/18 10:00 10/05/18 10:00 10/05/18 10:00 10/05/18 10:00 Oxygen Flow Rate (L/min) 2 Oxygen Delivery Method Room Air Weight: 98.1 kg Body Mass Index (BMI) 32.7 Intake and Output for Last 24 Hours 10/03/18 10/04/18 10/05/18 23:59 23:59 23:59 Intake Total 277.6 / 277.6 Output Total 650 / 650 Balance -372.4 / -372.4 Laboratory Tests Past 24 Hrs 10/04/18 10/04/18 10/04/18 21:25 21:25 21:25 WBC 7.4 RBC 4.64 Hgb 16.4 Hct 48.0 MCV 103.4 H MCH 35.3 H MCHC 34.2 RDW 13.8 RDW Differential 52.0 H Plt Count 176 MPV 10.5 Immature Gran % (Auto) 0.300 Neut % (Auto) 71.4 H Lymph % (Auto) 18.3 L [place] % (Auto) 6.9 Eos % (Auto) 2.8 Baso % (Auto) 0.3 Absolute Neuts (auto) 5.3 Absolute Lymphs (auto) 1.36 Total Counted Not Reportable PT 12.5 INR 0.9 APTT 30.0 Sodium 144 Potassium 3.2 L Chloride 107 Carbon Dioxide 28.0 Anion Gap 9 BUN 19 H Creatinine 1.23 Estim Creat Clear Calc 48.66 Est GFR (MDRD) Af Amer 73 Est GFR (MDRD) Non-Af 61 BUN/Creatinine Ratio 15.4 Glucose 140 H Calcium 8.3 L Troponin I 0.371 H Triglycerides Cholesterol LDL Cholesterol VLDL Cholesterol HDL Cholesterol 10/05/18 10/05/18 10/05/18 00:25 03:10 04:45 WBC 8.0 RBC 4.06 L Hgb 14.9 Hct 40.9 MCV 100.7 H MCH 36.7 H MCHC 36.4 H RDW 13.3 RDW Differential 49.6 H Plt Count 173 MPV 10.8 Immature Gran % (Auto) Neut % (Auto) Lymph % (Auto) [place] % (Auto) Eos % (Auto) Baso % (Auto) Absolute Neuts (auto) Absolute Lymphs (auto) Total Counted PT INR APTT Sodium Potassium Chloride Carbon Dioxide Anion Gap BUN Creatinine Estim Creat Clear Calc Est GFR (MDRD) Af Amer Est GFR (MDRD) Non-Af BUN/Creatinine Ratio Glucose Calcium Troponin I 5.990 H* 8.520 H* Triglycerides Cholesterol LDL Cholesterol VLDL Cholesterol HDL Cholesterol 10/05/18 10/05/1810/05/18 04:45 04:45 04:45 WBC RBC Hgb Hct MCV MCH MCHC RDW RDW Differential Plt Count MPV Immature Gran % (Auto) Neut % (Auto) Lymph % (Auto) [place] % (Auto) Eos % (Auto) Baso % (Auto) Absolute Neuts (auto) Absolute Lymphs (auto) Total Counted PT INR APTT 58.4 H Sodium 145 Potassium 3.3 L Chloride 108 H Carbon Dioxide 28.0 Anion Gap 9 BUN 18 Creatinine 1.03 Estim Creat Clear Calc 58.11 Est GFR (MDRD) Af Amer 90 Est GFR (MDRD) Non-Af 74 BUN/Creatinine Ratio 17.5 Glucose 102 Calcium 8.1 L Troponin I Triglycerides 110 Cholesterol 160 LDL Cholesterol 105 VLDL Cholesterol 22 HDL Cholesterol 33 L Discharge Diet: Low fat/ Low Cholesterol, 2000 mg Sodium Diet Discharge Activity: Return to Normal Activity Home Medications: Medications to take at Discharge Aspirin [Aspirin, Baby] 325 mg PO DAILY@0800 12/24/14 Pravastatin [Pravachol] 80 mg PO DAILY 12/24/14 Triamterene 75MG/Hctz 50MG [Maxzide] 0.5 tab PO DAILY 12/24/14 amlodipine 5 mg tablet 5 mg PO DAILY 09/21/18 captopril 50 mg tablet 100 mg PO BID tab 09/21/18 omega-3 fatty acids 1,000 mg capsule 1,000 mg PO TID 09/21/18 omeprazole 40 mg capsule,delayed release 40 mg PO DAILY 09/21/18 oxybutynin chloride 5 mg tablet 5 mg PO BID 09/21/18 L.acidoph,Paracasei, B.lactis [Probiotic] 1 each PO DAILY 10/04/18 Tramadol HCl [Tramadol HCl ER] 50 mg PO 4X/DAY PRN 10/04/18 Vitamin B Complex [B Complex] 2 each PO DAILY 10/04/18 Primary Care Physician: Hao Seay DO [Primary Care Provider] - Please follow up with your Primary Care Physician in: within 2 weeks of discharge Disposition: Acute care Hospital Minutes spent on discharge:: 40 Patient Condition:: Stable Medical Necessity - Tobacco Use Smoking Status: Former smoker Tobacco Use: Non-smoker Meaningful Use Info Meaningful Use Diagnoses (Choose all that apply): AMI - AMI Aspirin given w/in 24hrs of arrival?: Yes ASA at discharge?: Yes Statins at discharge?: Yes Viraj/ARB at discharge?: Yes Beta Anna at discharge?: Yes Done w/ Acute ME measure.: Yes Code Visit Inpatient E&M: 33501 Disch Hosp
[2018-10-05] MEDS: Pantoprazole Sodium 40 MG Tablet PO (14:07)
[2018-10-05] MEDS: Triamterene 75MG/Hctz 50MG Tablet 0.5 TABLET PO (14:08)
--- NOTE | 2018-10-05 16:57 | CL.D_ITS ---
Patient Name: NATAN ECHOLS Study Date: 10/05/2018 Performing: Jaswant Call MD Ht: 68 inches 173 cm : 1940 Wt: 216.3 lbs 98 kg Age: 77 Gender: male BSA: 2.11 PROCEDURE(S) PERFORMED [id number]/LV CLINICAL PROFILE AND INDICATIONS Indications: ACS <= 24 hrs Heart Failure: None Stress/Imaging Stress/Image Study Performed: No Angina Classification Anginal Classification w/in 2 Weeks: CCS III CAD Presentations: Non-STEMI. CONCLUSIONS Elevated Left Ventricular End Diastolic Pressure LV regional wall motion abnormalities with overall preserved LV systolic function LVEF: by LV gram 55 % [place] Multivessel CAD Left to right collateral flow RECOMMENDATIONS Risk factor modification Medical therapy Surgery consult for coronary revascularization DESCRIPTION OF PROCEDURE The patient arrived to the procedure lab. The risks and benefits of the procedure as well as a full d escription of our services here and current unavailability of surgical backup were fully explained to the patient and/or their significant other prior to the catheterization. The Timeout was completed, verifying the correct patient and procedure. The patient's procedural site was prepped and draped in the usual fashion. Local anesthetic was given subcutaneously to right radial region with Lidocaine 2% . Local anesthetic was given subcutaneously to right groin region with Lidocaine 2%. Using a modified Seldinger technique, arterial access was obtained via the right radial artery, a 6Fr sheath was inse rted., arterial access was obtained via the right femoral artery, a 4Fr sheath was inserted Left Cor onary Artery selective angiography was performed in multiple views using a 4 Fr. JL5 catheter. Right Coronary Artery selective angiography was then performed in multiple views using a 4 Fr. 3DRC catheter. Left Ventriculography was performed in LUJAN projection using a 4 Fr. Pigtail catheter. LV to AO pullback pressures were then recorded. Left Coronary Artery selective angiography was perfor med in multiple views using a 4 Fr. AL 1 catheter. Left Coronary Artery selective angiography was per formed in multiple views using a 4 Fr. JL6 catheter.The arterial sheath was pulled and a TR Band was applied for hemostasis w/ 15ml air. The arterial sheath was pulled and manual compression applied unt il hemostasis is achieved. CORONARY ANGIOGRAPHY DOMINANCE: Right Dominant LEFT HEART ASSESSMENT Left Ventricular Ejection Fraction: by LV Gram 55 % Inferior Basal Hypokinesis Elevated Left Ventricular End Diastolic Pressure LVEDP: 16 mmHg LEFT MAIN: Moderate calcification, proximal: ecceentric: 90 % Stenosis LEFT ANTERIOR DECENDING ARTERY: PROX LAD: Moderate calcification, Mild luminal irregularities, eccentric: 50-75 % Stenosis MID LAD: to distal: 50 % Stenosis CIRCUMFLEX ARTERY: PROX CIRC: Moderate calcification, Mild luminal irregularities, eccentric: 50 % Stenosis OM 1: Proximal - hazy: 90 % Stenosis RIGHT CORONARY ARTERY: Severe calcification PROX RCA: is occluded COLLATERAL FLOW: Collateral flow from Left to Right VALVE FINDINGS: Normal Aortic Valve function Normal Mitral Valve function AORTIC ROOT: Angiographically normal COMPLICATIONS No Complications PROCEDURE MEDICATIONS Fentanyl 50 mcg IV Versed 1 mg IV Versed 1 mg IV Fentanyl 50 mcg IV Oxygen: 2 L/min via nasal cannula Oxygen: 3 L/min via nasal cannula Oxygen: 5 L/min via nasal cannula Oxygen: 2 L/min via nasal cannula Heparin diluted in 23cc Heparinized saline. Patient given 10cc IA of this solution. 10/05/2018 12:00 :38 Verapamil 2.5mg, Ntg 100mcgs, 2000 units of Heparin diluted in 23cc Heparinized saline. Patient give n 10cc IA of this solution. 10/05/2018 12:00:38 SUMMARY OF HEMODYNAMIC DATA Time AIR REST ECG 11:34:29 AO 138/79 (106) SA 12:13:03 LV 129/-10, 16 12:29:26 LV 133/-12, 16 12:29:33 LV 135/9, 25 12:31:29 LVp 139/3, 21 12:31:35 AOp 131/66 (92) 12:31:40 Signed By Jaswant Call MD On 10/05/2018 16:57:14 Jaswant Call MD
== END 2018-10-05 14:45 | disposition short-term general hospital (02) | DRG 282 ==
LOC: ED 21:50 → ICU 22:59
PROVIDERS: Admitting Provider Hospitalist; Emergency Provider Emergency Medicine; Family Provider Family Medicine; PCP Family Medicine; Visit Provider Internal Medicine
DX: I21.4 Non-ST elevation (NSTEMI) myocardial infarction (principal); I10 Essential (primary) hypertension; E78.5 Hyperlipidemia, unspecified; K21.9 Gastro-esophageal reflux disease without esophagitis; N32.81 Overactive bladder; Z92.3 Personal history of irradiation; Z92.21 Personal history of antineoplastic chemotherapy; I25.10 Atherosclerotic heart disease of native coronary artery without angina pectoris; Z86.73 Personal history of transient ischemic attack (TIA), and cerebral infarction without residual deficits; Z93.3 Colostomy status; Z82.49 Family history of ischemic heart disease and other diseases of the circulatory system; Z90.49 Acquired absence of other specified parts of digestive tract; Z87.891 Personal history of nicotine dependence; Z85.048 Personal history of other malignant neoplasm of rectum, rectosigmoid junction, and anus; Z79.899 Other long term (current) drug therapy
CPT/HCPCS: 71045; 80048; 80061; 84484; 85025; 85027; 85610; 85730; 93005; 93458; 99152; 99153; 99285; J7030; Q9967; A4216; C1769; C1894

== ENCOUNTER → 2019-06-16 08:24 | Outpatient (CLI) | payer MEDICARE, OTHER, SELFPAY ==
[2019-05-11 12:48] VITALS: BMI 32.3
[2019-06-16 11:39] LABS: AST(SGOT) 17 U/L (15-37); Alanine Aminotransfer ALT/SGPT 24 U/L (16-61); Albumin, Serum 3.4 g/dL (3.2-5.0); Alkaline Phosphatase 103 U/L (45-117); Bilirubin, Direct 0.16 mg/dL (0.00-0.30); Cholesterol 133 mg/dL (200); Globulin 3.6 g/dL (2.2-4.2); High Density Lipoprotein 34 mg/dL; Triglycerides 103 mg/dL; Very Low Density Lipoprotein 21 mg/dL (5-40)
== END ==
PROVIDERS: Family Provider Family Medicine; PCP Family Medicine; Referring Provider Internal Medicine Cardiovascular Disease; Visit Provider Internal Medicine Cardiovascular Disease
DX: E78.00 Pure hypercholesterolemia, unspecified (principal)
CPT/HCPCS: 36415; 80061; 80076

== ENCOUNTER → 2019-07-04 11:08 | Outpatient (CLI) | payer MEDICARE, OTHER, SELFPAY ==
[2018-10-04 23:34] VITALS: BMI 32.7
[2019-05-11 12:48] VITALS: BMI 32.3
--- NOTE | 2019-07-04 11:09 | CT_ITS ---
STUDY: CT CHEST WITH CONTRAST REASON FOR EXAM: Male, 78 years old. Follow-up history of rectal cancer. RADIATION DOSAGE (If Supplied By Facility): CTDIvol = ( 23.34 ) mGy, DLP = ( 2043.04 ) mGycm TECHNIQUE: Transaxial imaging was performed following intravenous administration of IV Isovue 300 100. Multiplanar coronal and sagittal images were reformatted. Individualized dose optimization techniques were used for this CT. COMPARISON: November 23, 2016 FINDINGS: There is minimal lower lobe atelectasis. There are areas of fibrotic change or scarring. There is some volume loss suggested in the right lung similar to the prior study. There is no demonstrated pleural abnormality. Sternotomy wires are seen midline. There are dense coronary calcifications. Normal mediastinum. Normal hilar regions. Normal enhanced pulmonary arteries. There is atherosclerotic calcification of the aortic arch with tortuosity and elongation of the aortic arch and descending thoracic aorta. There are multi-level degenerative changes of the thoracic spine. There is a minimal hiatal hernia. CT/Chest WITH Contrast IMPRESSION: No evidence of acute focal infiltrate or visualized mass. Status post sternotomy coronary artery disease. There is a minimal heterogeneity. Degenerative changes of the thoracic spine. Electronically Signed: Ela Davis MD at 17:49 EDT Tel , Service support ,
--- NOTE | 2019-07-04 11:09 | CT_ITS ---
STUDY: CT ABDOMEN AND PELVIS WITH CONTRAST REASON FOR EXAM: Male, 78 years old. Rectal cancer with colostomy RADIATION DOSAGE (If Supplied By Facility): CTDIvol = ( 23.34 ) mGy, DLP = ( 2043.04 ) mGycm TECHNIQUE: Transaxial images were obtained from the dome of the diaphragm to the symphysis pubis without oral contrast. IV/Oral Isovue 300 100 was administered. Sagittal and coronal images were reconstructed. Individualized dose optimization techniques were used for this CT. COMPARISON: June 29, 2017 CT scan abdomen and pelvis FINDINGS: Fibrotic changes without new mass. There coronary artery calcifications. Normal liver. Normal gallbladder and extrahepatic biliary system. Normal spleen. Normal pancreas. There is stable appearance of the bilateral adrenal glands with mild thickening. There is moderate atrophy of the upper pole of the right kidney. 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 There is calcification of the right renal artery at the level of the right kidney similar to prior study. There is mild left renal atrophy and renal cortical thinning. There is a stable left renal cyst. There is a minimal hydroureter hernia. Normal small intestine. There is a stable appearance of a long column of stool extending to a narrowed caliber rectum or postoperative soft tissues at an anastomosis towards the presacral space. There is a left lower colostomy. There is postoperative change in the rectosigmoid junction. There is non-visualization of the appendix. There is diffuse atherosclerotic calcification of the abdominal aorta, without a demonstrated aneurysm. Normal inferior vena cava. Normal retroperitoneum. The bladder is distended. Prostate is enlarged with calcifications stable since prior study. There is body wall edema. There are diffuse degenerative changes of the visualized lumbar spine. There is multilevel degenerative change within the lumbar spine characterized by multilevel broad disc protrusions especially at the level of L3-L4 L4-L5 and L5-S1 where there is moderate to severe neural foramina narrowing and moderate to severe central stenosis. There is a rudimentary disc at S1-S2. There are bridging osteophytes. There is degenerative change of the bilateral hip joints. There is mild dependent edema. CT/Abdomen/Pelvis WITH Contrast IMPRESSION: Persistent long column of stool which extends to the level of the rectum where there is postoperative change and presacral stranding. Recommend correlation with surgical history. Left lower colostomy. 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 Advanced degenerative change of the thoracolumbar spine most significant at L3-L4 where there is a large disc osteophyte protrusion with severe neural foramina narrowing and severe central stenosis. Electronically Signed: Ela Davis MD at 17:58 EDT Tel , Service support ,
[2019-07-04 13:35] LABS: CREATININE FINGERSTICK < 0.6 mg/dL (0.70-1.30)
== END ==
PROVIDERS: Family Provider Family Medicine; PCP Family Medicine; Referring Provider Internal Medicine Medical Oncology; Visit Provider Internal Medicine Medical Oncology
DX: C20 Malignant neoplasm of rectum (principal)
CPT/HCPCS: 71260; 74177; Q9967

== ENCOUNTER → 2020-06-19 15:59 | Outpatient (CLI) | payer MEDICARE, OTHER, SELFPAY ==
[2019-12-29 11:06] VITALS: BMI 32.8
[2020-06-19 17:15] LABS: Absolute Lymphocyte Count 1.12 X10^3/uL (0.83-4.51); Absolute Neutrophil Count 5.6 X10^3/uL (2.0-7.7); Basophil# 0.03 X10^3/uL; Basophil% 0.4 % (0-1); Eosinophil# 0.36 X10^3/uL; Eosinophils% 4.6 % (0-5); Hematocrit 50.5 % (40-54); Hemoglobin 16.9 g/dL (13.0-16.5); Lymphocyte # 1.12 X10^3/ul (4.0); Lymphocyte % 14.3 % (19-41); Mean Corp Hgb Conc 33.5 g/dL (32-36); Mean Corpuscular Hgb 35.1 pg (27.0-32.0); Mean Platelet Vol. 10.7 fl (6.2-12.0); Monocyte% 8.9 % (0-10); NRBC Flagged by Analyzer 0 % (0-5); Neutrophil # 5.58 X10^3/uL (2.7-7.7); Neutrophil % 71.3 % (47-70); Platelet Count 192 K/mm3 (150-450); RBC Distribution Width CV 12.8 % (11.6-14.6); RBC Distribution Width SD 49.9 fl (35.1-43.9); Red Blood Count 4.81 M/mm3 (4.6-6.2); White Blood Count 7.8 K/mm3 (4.4-11.0)
[2020-06-19 18:19] LABS: ALB/GLOB Ratio 0.8 RATIO (0.9-2.4); AST(SGOT) 21 U/L (15-37); Alanine Aminotransfer ALT/SGPT 29 U/L (16-61); Albumin, Serum 3.4 g/dL (3.2-5.0); Alkaline Phosphatase 121 U/L (45-117); Anion Gap 4 (5-15); BUN 24 mg/dL (7-18); BUN/Creat Ratio 19.7 RATIO (10-20); Chloride 107 mmol/L (98-107); Creatinine, Serum 1.22 mg/dL (0.70-1.30); EST Glomerular Filtration Rate 61 mL/min (>60); Est Glom Filt Rate - Afr Amer 74 mL/min (>60); Glucose 89 mg/dL (74-106); Protein, Total 7.4 g/dL (6.4-8.2); Sodium Level 142 mmol/L (136-145); Thyroid Stim Hormone (TSH) 1.35 uIU/mL (0.358-3.74)
[2020-06-19 19:40] LABS: Vitamin B12 746 pg/mL (211-911); Vitamin D,25 Hydroxy 56.8 ng/mL
[2020-06-20 01:32] LABS: Rapid Plasmin Reagin (RPR) NONREACTIVE (NONREACTIVE)
== END ==
PROVIDERS: PCP Family Medicine Geriatric Medicine; Visit Provider Family Medicine Geriatric Medicine
DX: E55.9 Vitamin D deficiency, unspecified (principal); F03.90 Unspecified dementia, unspecified severity, without behavioral disturbance, psychotic disturbance, mood disturbance, and anxiety; I10 Essential (primary) hypertension
CPT/HCPCS: 36415; 80053; 82306; 82607; 82746; 84443; 85025; 86592

== ENCOUNTER → 2020-06-28 08:41 | Outpatient (CLI) | payer MEDICARE, OTHER, SELFPAY ==
[2019-12-29 11:06] VITALS: BMI 32.8
--- NOTE | 2020-06-28 08:46 | CT_ITS ---
STUDY: CT BRAIN WITHOUT CONTRAST REASON FOR EXAM: Male, 79 years old. MIXED DEMENTIA RADIATION DOSAGE (If Supplied By Facility): CTDIvol = ( 44.99 ) mGy, DLP = ( 829.85 ) mGycm TECHNIQUE: Transaxial CT imaging of the brain was performed without administration of intravenous contrast material. Individualized dose optimization techniques were used for this CT. COMPARISON: Comparison is made with prior study dated 08/26/2015. FINDINGS: Normal soft tissue structures. Normal calvarium. There is mild cerebral atrophy with widening of the extra-axial spaces and ventricular dilatation. There are areas of decreased attenuation within the white matter tracts of the supratentorial brain, consistent with microvascular disease changes. Focal encephalomalacia is seen in the inferior aspect of the right frontal lobe. Normal basal ganglia and thalami. Normal brainstem. Normal cerebellum. There is no intracranial hemorrhage. There are no findings of an acute ischemic infarction. Atherosclerotic calcification of the vertebral arteries and cavernous portions of the internal carotid arteries bilaterally. Normal visualized paranasal sinuses. CT/Brain/Head without Contrast IMPRESSION: Chronic involutional changes of the brain. Electronically Signed: Yobany Colon, at 11:05 EDT , Service support ,
--- NOTE | 2020-06-28 09:07 | US_ITS ---
PROCEDURES: ULTRASOUND AORTA REASON FOR EXAM: Male, 79 years old. AAA TECHNIQUE: Ultrasound evaluation of the aorta was performed with real-time and static degroot-scale imaging. COMPARISON: None. FINDINGS: There is obscuration of the abdominal aorta by overlying bowel gas Aorta measures: Proximal 2.9 cm. Middle 2.6 cm. Distal 2.4 cm. Aorta measure transversely: Proximal 2.1 cm. Middle 2.4 cm. Distal 1.5 cm. The iliac arteries were not visualized due to overlying bowel gas. There is no demonstrated aneurysm.. US/Aorta IMPRESSION: No evidence of abdominal aortic aneurysm. Electronically Signed: Yobany Colon, at 11:11 EDT , Service support ,
== END ==
PROVIDERS: PCP Family Medicine Geriatric Medicine; Referring Provider Family Medicine Geriatric Medicine; Visit Provider Family Medicine Geriatric Medicine
DX: I71.4 Abdominal aortic aneurysm, without rupture (principal); F03.90 Unspecified dementia, unspecified severity, without behavioral disturbance, psychotic disturbance, mood disturbance, and anxiety
CPT/HCPCS: 70450; 76775

== ENCOUNTER 2020-09-19 22:24 | Emergency (ER) | payer MEDICARE, OTHER, SELFPAY ==
[2020-07-08 13:05] VITALS: BMI 34.2
--- NOTE | 2020-09-19 22:25 | EKG12_ITS ---
Test Reason : DYSRHYTHMIA Blood Pressure : / mmHG Vent. Rate : 061 BPM Atrial Rate : 061 BPM P-R Int : 162 ms QRS Dur : 092 ms QT Int : 480 ms P-R-T Axes : 012 019 040 degrees QTc Int : 483 ms Normal sinus rhythm Prolonged QT Abnormal ECG Confirmed by ANAYA NAVA, RENETTA ([id number]), online content editor MAURI SOTO ([id number]) on 09/20/2020 2:19:02 PM Referred By: NEISHA Confirmed By:RENETTA JULIEN MD
[2020-09-19 22:28] VITALS: BP 206/108; PULSE 83; RESP 16; TEMP 36.9; O2SAT 93; BMI 36.3
--- NOTE | 2020-09-19 22:28 | ED.VIS.GEN ---
History of Present Illness Chief Complaint: Hypertension Informant: Patient, Outsoles Channel Opener Limited by: Dementia Onset: Today Context: Sudden Onset Timing: Intermittent Quality: Apparently slid from chair and shower Location: Resident Current Severity: - - Unable to determine Maximum Severity: - - Unable to determine Worsened by: Presume patient is dehydrated Relieved by: Nothing Associated Symptoms: Patient has history of dementia, is disoriented and history limited Narrative: Patient is an elderly male with history of four-vessel coronary artery bypass surgery October, hypertension and possibly hypercholesterolemia who arrived by ambulance after he was noted to have an elevated blood pressure. Call was for assist since he had slid in the shower. According to paramedics daughter states he did not hit his head. There was no document loss of conscience. Patient is oriented to name and knows he is at the hospital. He does not know the month, day of the week or year. He denies headache. He denies visual disturbance. He denies trouble with the speech. Speech is slightly slurred. Suspect this is due to the fact that his tongue and bucca mucosa are dry. Having the patient lower his mask and watch him speak 1 is able to the term and that is tongue sticks to the roof of his mouth. He denies any urinary symptoms. He believes he urinated 2 to 3 hours ago. He does admit to decreased p.o. intake. Prior similar symptoms: No Recent Illness/Hospitalization: No - Past Medical History (1) Atherosclerosis of coronary artery without angina pectoris Status: Chronic Comment: CABG x 4 MCKEON-LAD, SVG-D1, SVG-OM1 and SVG-PDA 10/12/18 (2) Essential (primary) hypertension Status: Chronic (3) History of rectal cancer Status: Chronic (4) Hyperlipidemia Status: Chronic (5) NSTEMI (non-ST elevated myocardial infarction) Status: Resolved Past Medical History - Allergies and Home Meds Allergies/Adverse Reactions: Allergies Penicillins Adverse Reaction (Verified 09/19/20 22:31) Unknown Primary Care Physician: Hans Bran Chi, MD [Primary Care Provider] - Prior records reviewed: Yes Surgical History: coronary bypass surgery, - - History of colostomy, history of rectal cancer Lives: With Family Smoking Status: Former smoker Alcohol: None Drugs: None Review of Systems ROS: Unable to Obtain General: Denies: Fever Eyes: Denies: Visual changes - bilaterally, Blurred Vision - bilaterally Cardiovascular: Denies: Chest pain, Palpitations Respiratory: Denies: Dyspnea Gastrointestinal: Denies: Abdominal pain, Vomiting, Diarrhea Genitourinary: Reports: - - Certain Musculoskeletal: Denies: Myalgias, Arthralgias, Neck pain, Back pain, Swelling - Patient was unaware that he had swelling of his feet and lower extremities., Extremity Pain Skin: Denies: Rash, Wounds Neurological: Reports: Weakness. Denies: Headache Allergy: Denies: Uticaria Physical Exam Inital Vital Signs reviewed: Yes General: Well nourished, Well developed, Obese Head: Normocephalic, Atraumatic Eyes: Perrl, EOMI. Negative for: Pale conjunctiva ENT: Dry mucous membranes Neck: Supple, Nontender, No lymphadenopathy Cardiovascular: Regular rate, Regular rhythm, No murmurs, Normal S1, Normal S2 Respiratory: No distress, CTA bilaterally, Chest nontender Abdomen: Soft, Nontender, Nondistended, Normal bowel sounds, - - Colostomy/ostomy noted left lower quadrant. Stool is dark brown-green. Back: Nontender Extremities: Nontender, Tenderness Skin: Normal color, Cyanosis - Patient has acral cyanosis with capillary refill of 3 seconds toes bilaterally Neurological: Alert, Cranial nerves II-XII grossly intact, Normal Strength, Normal Sensation. Negative for: Oriented x3 Psychological: Normal affect Diagnostic/Tx/Re-eval - EKG Initial EKG Interpretation: Sinus Rhythm - EKG was performed at 2238. EKG is remarkable for acute QT prolongation. Mechanism sinus. Ventricular rate 61. SC interval 160 ms. QRS Duration is 92 ms. QT duration is 480 ms with a QTC of 483 ms. The axis is normal. - Medical Decision Making Patient clinically is dehydrated. Will administer 1 L of normal saline. Jovel was placed for accurate I's and O's. Comprehensive metabolic panel was obtained to assess electrolytes, anion gap and renal function. CBC to assess white count and H&H. EKG was obtained to evaluate for evidence of ischemia. Tests were obtained also determine if there is evidence of endorgan injury since his blood pressure is elevated. Patient's most recent blood pressure is 144/92. This was in response to 0.2 mg of clonidine. Plan is hydrochlorothiazide 12.5 mg and follow-up with physician for blood pressure monitoring. There is concern patient is noncompliant with his medication. His prescription for beta-deion was filled in June. He has half of the prescription remaining in the bile. This would indicate he is not compliant with his meds. And in light of this we will start with low-dose of hydrochlorothiazide especially since there is no evidence of endorgan injury and specifically renal. After hydration patient is able to speak more clearly. ED Disposition - Plan for ED Patient: Disposition: Home or Assisted Living Diagnosis: Accelerated hypertension Instructions: ED Hypertension, Established Prescriptions: Hydrochlorothiazide [Hctz] 12.5 mg PO DAILY #30 tab Transmission Status: Pending to [id number] Referrals: Hans Bran Chi, MD [Primary Care Provider] - 1 Week
--- NOTE | 2020-09-19 22:35 | ED.RN ---
colostomy bag changed at this time with home supplies
[2020-09-19 22:45] LABS: Absolute Lymphocyte Count 1.18 X10^3/uL (0.83-4.51); Absolute Neutrophil Count 5.1 X10^3/uL (2.0-7.7); Basophil# 0.04 X10^3/uL; Basophil% 0.5 % (0-1); Eosinophils% 4.1 % (0-5); Hematocrit 49.8 % (40-54); Hemoglobin 16.9 g/dL (13.0-16.5); Lymphocyte # 1.18 X10^3/ul (4.0); Lymphocyte % 16.2 % (19-41); Mean Corp Hgb Conc 33.9 g/dL (32-36); Mean Corpuscular Hgb 34.7 pg (27.0-32.0); Mean Corpuscular Volume 102.3 fL (80-94); Mean Platelet Vol. 10.6 fl (6.2-12.0); Monocyte# 0.69 X10^3/uL; Monocyte% 9.5 % (0-10); NRBC Flagged by Analyzer 0 % (0-5); Neutrophil # 5.06 X10^3/uL (2.7-7.7); Neutrophil % 69.4 % (47-70); Platelet Count 161 K/mm3 (150-450); RBC Distribution Width CV 12.7 % (11.6-14.6); RBC Distribution Width SD 47.6 fl (35.1-43.9); Red Blood Count 4.87 M/mm3 (4.6-6.2); White Blood Count 7.3 K/mm3 (4.4-11.0)
[2020-09-19 22:53] LABS: Prothrombin Time (Protime)PT. 12.7 SECONDS (11.7-14.9)
[2020-09-19 22:54] LABS: Partial Thromboplast Time 29.4 Seconds (24.1-36.2)
[2020-09-19 22:55] LABS: Blood Gas Specimen Type VEN; O2 Delivery Device Room Air; VBG BASE EXCESS 3 mmol/L (-1.0-3.5); VBG Bicarbonate 27 mmol/L (22-26); VBG PO2 55 mmHg (25-40); VBG SO2 88 % (50-70); VBG TCO2 29 mmol/L (23-33); VBG pCO2 43.2 mmHg (41-51); VBG pH 7.41 (7.32-7.42)
[2020-09-19] MEDS: 0.9% Normal Saline 1,000 ML 1000 ML IV (22:58)
[2020-09-19 22:59] LABS: Bacteria 0 SEEN /hpf (None Seen); Mucous, Urine 0 SEEN /hpf (<or=2+); Red Blood Cells-Urine 0 SEEN /hpf (0-5); Squamous Epithelial Cells - UA 0 SEEN /hpf (0-5); White Blood Cells 0 SEEN /hpf (0-5)
[2020-09-19 23:03] LABS: Color, Urine Yellow (Yellow); Glucose, Dipstick Normal (Normal); Ketone-Dipstick Negative (Negative); Leukocyte Esterase-Dipstick Negative /ul (Negative); Nitrite-Dipstick Negative (Negative); Occult Blood-Urine Negative /ul (Negative); Protein-Dipstick Negative (Negative); Specific Gravity, Urine 1.015 (1.002-1.030); Urine Bilirubin Dipstick Negative (Negative); Urine Clarity Clear (Clear); Urine Urobilinogen Normal (Normal)
[2020-09-19 23:05] LABS: ALB/GLOB Ratio 0.9 RATIO (0.9-2.4); AST(SGOT) 19 U/L (15-37); Alanine Aminotransfer ALT/SGPT 34 U/L (16-61); Albumin, Serum 3.4 g/dL (3.2-5.0); Alkaline Phosphatase 123 U/L (45-117); Anion Gap 6 (5-15); BUN 18 mg/dL (7-18); BUN/Creat Ratio 14.5 RATIO (10-20); Calcium,Total 9.1 mg/dL (8.5-10.1); Chloride 106 mmol/L (98-107); Creatinine, Serum 1.24 mg/dL (0.70-1.30); EST Glomerular Filtration Rate 60 mL/min (>60); Est Glom Filt Rate - Afr Amer 72 mL/min (>60); Estimated Creatinine Clearance 45.16 ml/min; Globulin 3.7 g/dL (2.2-4.2); Glucose 98 mg/dL (74-106); Potassium 3.6 mmol/L (3.5-5.1); Protein, Total 7.1 g/dL (6.4-8.2); Sodium Level 140 mmol/L (136-145)
[2020-09-19 23:28] VITALS: BP 209/104; PULSE 66; RESP 18; O2SAT 92
[2020-09-19 23:34] LABS: Lactic Acid 1.3 mmol/L (0.4-1.9)
[2020-09-19] MEDS: cloNIDine HCl 0.2 MG Tablet PO (23:34)
[2020-09-20 01:05] VITALS: BP 141/76; PULSE 56; RESP 18; O2SAT 93
[2020-09-20 01:41] VITALS: BP 144/79; PULSE 61; RESP 18; O2SAT 96
--- NOTE | 2020-09-20 01:42 | ED.RN ---
sofía cline,ptied for 1200cc of urine and then discontinued per md order.
== END 2020-09-20 01:44 | disposition home or self-care (01) ==
PROVIDERS: Emergency Provider Emergency Medicine; PCP Family Medicine Geriatric Medicine
DX: I10 Essential (primary) hypertension (principal); I25.10 Atherosclerotic heart disease of native coronary artery without angina pectoris; I25.2 Old myocardial infarction; E78.5 Hyperlipidemia, unspecified; F03.90 Unspecified dementia, unspecified severity, without behavioral disturbance, psychotic disturbance, mood disturbance, and anxiety; E66.9 Obesity, unspecified; M79.89 Other specified soft tissue disorders; Z68.36 Body mass index [BMI] 36.0-36.9, adult; Z88.0 Allergy status to penicillin; Z95.1 Presence of aortocoronary bypass graft; Z79.82 Long term (current) use of aspirin; Z79.899 Other long term (current) drug therapy; Z87.891 Personal history of nicotine dependence; Z91.14 Patient's other noncompliance with medication regimen
CPT/HCPCS: 51702; 80053; 81001; 82803; 83605; 84484; 85025; 85610; 85730; 93005; 96360; 96361; 99285; J7030; A4216

== ENCOUNTER → 2020-09-24 10:20 | Outpatient (CLI) | payer MEDICARE, OTHER, SELFPAY ==
[2020-09-19 22:28] VITALS: BMI 36.3
[2020-09-24 12:20] LABS: Absolute Neutrophil Count 5.2 X10^3/uL (2.0-7.7); Basophil# 0.03 X10^3/uL; Basophil% 0.5 % (0-1); Eosinophil# 0.14 X10^3/uL; Eosinophils% 2.2 % (0-5); Hematocrit 49.6 % (40-54); Hemoglobin 16.7 g/dL (13.0-16.5); Lymphocyte % 10.9 % (19-41); Mean Corp Hgb Conc 33.7 g/dL (32-36); Mean Corpuscular Hgb 35.1 pg (27.0-32.0); Mean Corpuscular Volume 104.2 fL (80-94); Mean Platelet Vol. 11.7 fl (6.2-12.0); Monocyte# 0.29 X10^3/uL; Monocyte% 4.5 % (0-10); NRBC Flagged by Analyzer 0 % (0-5); Neutrophil # 5.23 X10^3/uL (2.7-7.7); Neutrophil % 81.6 % (47-70); Platelet Count 162 K/mm3 (150-450); RBC Distribution Width CV 12.9 % (11.6-14.6); RBC Distribution Width SD 49.6 fl (35.1-43.9); Red Blood Count 4.76 M/mm3 (4.6-6.2); White Blood Count 6.4 K/mm3 (4.4-11.0)
[2020-09-24 12:38] LABS: Vitamin D,25 Hydroxy 39.9 ng/mL
[2020-09-24 12:59] LABS: ALB/GLOB Ratio 0.9 RATIO (0.9-2.4); AST(SGOT) 14 U/L (15-37); Alanine Aminotransfer ALT/SGPT 33 U/L (16-61); Albumin, Serum 3.3 g/dL (3.2-5.0); Alkaline Phosphatase 118 U/L (45-117); Anion Gap 7 (5-15); BUN 22 mg/dL (7-18); BUN/Creat Ratio 17.6 RATIO (10-20); Calcium,Total 9.2 mg/dL (8.5-10.1); Chloride 107 mmol/L (98-107); Creatinine, Serum 1.25 mg/dL (0.70-1.30); EST Glomerular Filtration Rate 59 mL/min (>60); Est Glom Filt Rate - Afr Amer 72 mL/min (>60); Globulin 3.7 g/dL (2.2-4.2); Glucose 159 mg/dL (74-106); Potassium 3.9 mmol/L (3.5-5.1); Sodium Level 143 mmol/L (136-145); Thyroid Stim Hormone (TSH) 1.52 uIU/mL (0.358-3.74)
== END ==
PROVIDERS: PCP Family Medicine Geriatric Medicine; Visit Provider Family Medicine Geriatric Medicine
DX: E55.9 Vitamin D deficiency, unspecified (principal); R53.83 Other fatigue
CPT/HCPCS: 36415; 80053; 82306; 84443; 85025

== ENCOUNTER → 2020-10-29 | Outpatient (CLI) | payer MEDICARE, OTHER, SELFPAY ==
--- NOTE | 2020-10-29 09:05 | LES_PTH ---
PATIENT: NATAN ECHOLS LOC: [facility] U#:[id number] AGE/SX: 79/M ROOM: RE10/29/[address]: Dr. 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 Perineural invasion is not seen. See comment. LILIA:rikki 10/30/2020 COMMENT Clinical correlation and appropriate follow up are necessary. Case has been reviewed in consultation with Dr. Luna who concurs with the above diagnosis. IDC:AM MICROSCOPIC DESCRIPTION Slides are reviewed. GROSS DESCRIPTION Received in fixative is one container labeled with the patient's name and designated chest. The specimen consists of a piece of cardona-white skin measuring 1 x 0.5 x 0.2 cm. The specimen is inked and submitted entirely in one cassette. It will be sectioned at the time of embedding. / SJ:rikki 10/29/20 TC:0 CPT: 20857
== END | disposition home or self-care (01) ==
PROVIDERS: PCP Family Medicine Geriatric Medicine; Visit Provider Family Medicine Geriatric Medicine
DX: C44.529 Squamous cell carcinoma of skin of other part of trunk (principal)
CPT/HCPCS: 88305

== ENCOUNTER 2020-11-08 14:44 | Emergency (ER) | payer MEDICARE, OTHER, SELFPAY ==
[2020-11-08 14:44] VITALS: BP 148/86; PULSE 74; RESP 36; TEMP 36.6; O2SAT 91; BMI 35.4
[2020-11-08 14:48] VITALS: BP 148/86; PULSE 71; RESP 31; TEMP 36.3; O2SAT 91
--- NOTE | 2020-11-08 15:27 | EKG12_ITS ---
Test Reason : WEAKNESS Blood Pressure : / mmHG Vent. Rate : 068 BPM Atrial Rate : 068 BPM P-R Int : 148 ms QRS Dur : 086 ms QT Int : 444 ms P-R-T Axes : 014 020 134 degrees QTc Int : 472 ms Normal sinus rhythm ST & T wave abnormality, consider lateral ischemia Abnormal ECG Confirmed by SHAKIR NAVA, TUCKER ([id number]), mapping editor MAURI SOTO ([id number]) on 11/11/2020 12:15:26 PM Referred By: VIRGIE Confirmed By:JACIEL SCHILLING MD
--- NOTE | 2020-11-08 15:28 | ED.VIS.GEN ---
History of Present Illness Chief Complaint: Weakness Informant: Patient Narrative: Patient is a 79-year-old male with a past medical history of CAD, dementia, hypertension, hyperlipoidemia who presents to the emergency department for generalized weakness and falls. He has been urinating a lot more frequently. Upon arrival to the emergency department patient answer some questions but not others. Apparently this is his baseline is normally only oriented x1. He does have a home caregiver. He denies having any pain questioning. He otherwise is a very poor historian does not provide any other reason to why he is in the emergency department. Past Medical History - Allergies and Home Meds Allergies/Adverse Reactions: Allergies Penicillins Adverse Reaction (Verified 11/08/20 14:50) Unknown Primary Care Physician: Hans Bran Chi, MD [Primary Care Provider] - Surgical History: coronary bypass surgery, - - History of colostomy, history of rectal cancer Smoking Status: Former smoker Review of Systems ROS: Unable to Obtain Physical Exam Vital Signs/Narrative: Vital Signs Temp Pulse Resp BP Pulse Ox 11/08/20 14:48 97.4 F L 71 31 H 148/86 H 91 11/08/20 14:44 97.8 F 74 36 H 148/86 H 91 Inital Vital Signs reviewed: Yes General: Well nourished, Well developed, No Acute Distress Head: Normocephalic, Atraumatic Eyes: Perrl, EOMI ENT: Moist mucous membranes, No rhinorrhea Neck: Supple, Nontender Cardiovascular: Regular rate, Regular rhythm, No murmurs Respiratory: No distress, CTA bilaterally, Chest nontender Abdomen: Soft, Nontender, Nondistended, Normal bowel sounds Back: Nontender, Normal Inspection. Negative for: Spinal tenderness Extremities: Nontender, Edema - 1+ pitting edema symmetrically of lower extremities Skin: Normal color, No rash Neurological: Alert, Cranial nerves II-XII grossly intact, Normal Strength, Normal Sensation, - - Oriented x2. Negative for: Left side facial droop, Right side facial droop Psychological: Normal affect, Normal Mood Diagnostic/Tx/Re-eval - EKG Initial EKG Interpretation: - - Rate of 68 bpm in sinus rhythm. Normal intervals. Normal axis. Some nonspecific ST segment abnormalities without any significant ST elevations. No T wave abnormalities. - Medical Decision Making Patient presents to the emergency department for generalized weakness with frequent falls. He has also been urinating a lot more frequently. He has no focal deficits on my physical exam. No evidence of external trauma. Will check basic lab work along with urinalysis. Patient's chest x-ray did not reveal any evidence of consolidation or fractures. His lab work-up did not reveal a significant acute abnormality. He is not anemic. Glucose within normal limits. His urine does not show any evidence of infection. He otherwise has been stable throughout ED stay. I did contact the patient's daughter and she feels that his fall was related to sitting on the toilet for too long. He is to have close follow-up with his PCP. Return precautions are reviewed. Discharged home in stable condition. All questions were answered. ED Disposition - Plan for ED Patient: Disposition: Home or Assisted Living Diagnosis: Generalized weakness Instructions: ED Weakness (Uncertain Cause) Referrals: Hans Bran Chi, MD [Primary Care Provider] - 2 Days
--- NOTE | 2020-11-08 15:46 | RAD_ITS ---
STUDY: X-RAY CHEST REASON FOR EXAM: Male, 79 years old. increased weakness, frequent falls, frequency in urination, and thirst. TECHNIQUE: Single AP portable view of the chest. COMPARISON: 10/04/2018 FINDINGS: Status post median sternotomy. The lungs are clear and expanded. There is no demonstrated pleural abnormality. Normal size heart. Normal mediastinum and christine. Normal visualized pulmonary arteries. Normal visualized aortic arch and descending thoracic aorta. Normal visualized thoracic spine. Normal visualized ribs, clavicles, and shoulders. There is no demonstrated abnormality of the visualized soft tissue structures of the upper abdomen. RAD/Chest 1 View (Portable) IMPRESSION: No active disease. Electronically Signed: Chung Hauser MD at 16:07 EST Tel , Service support ,
[2020-11-08 16:43] LABS: Absolute Neutrophil Count 4.4 X10^3/uL (2.0-7.7); Basophil# 0.02 X10^3/uL; Basophil% 0.3 % (0-1); Eosinophil# 0.01 X10^3/uL; Eosinophils% 0.2 % (0-5); Hematocrit 51.8 % (40-54); Lymphocyte % 13.8 % (19-41); Mean Corp Hgb Conc 32.8 g/dL (32-36); Mean Corpuscular Hgb 34.3 pg (27.0-32.0); Mean Corpuscular Volume 104.6 fL (80-94); Mean Platelet Vol. 10.6 fl (6.2-12.0); Monocyte# 0.58 X10^3/uL; NRBC Flagged by Analyzer 0 % (0-5); Neutrophil # 4.36 X10^3/uL (2.7-7.7); Neutrophil % 75.4 % (47-70); Platelet Count 143 K/mm3 (150-450); RBC Distribution Width CV 13.2 % (11.6-14.6); RBC Distribution Width SD 51.8 fl (35.1-43.9); Red Blood Count 4.95 M/mm3 (4.6-6.2); White Blood Count 5.8 K/mm3 (4.4-11.0)
[2020-11-08 16:52] LABS: Bacteria 0 SEEN /hpf (None Seen); Mucous, Urine 0 SEEN /hpf (<or=2+); Red Blood Cells-Urine 0 SEEN /hpf (0-5); Squamous Epithelial Cells - UA 0 SEEN /hpf (0-5)
[2020-11-08 16:53] VITALS: BP 151/107; PULSE 67; RESP 17; O2SAT 92
[2020-11-08 16:58] LABS: Color, Urine Yellow (Yellow); Glucose, Dipstick Normal (Normal); Ketone-Dipstick 5 mg/dl (Negative); Leukocyte Esterase-Dipstick 25 /ul (Negative); Nitrite-Dipstick Negative (Negative); Occult Blood-Urine 10 /ul (Negative); Protein-Dipstick 100 mg/dl (Negative); Specific Gravity, Urine 1.025 (1.002-1.030); Urine Bilirubin Dipstick Negative (Negative); Urine Clarity Clear (Clear); Urine Urobilinogen Normal (Normal)
[2020-11-08 16:58] LABS: AST(SGOT) 43 U/L (15-37); Alanine Aminotransfer ALT/SGPT 40 U/L (16-61); Albumin, Serum 3.2 g/dL (3.2-5.0); Alkaline Phosphatase 119 U/L (45-117); Anion Gap 4 (5-15); BUN 19 mg/dL (7-18); Bilirubin, Direct 0.14 mg/dL (0.00-0.30); Chloride 107 mmol/L (98-107); Creatinine, Serum 1.27 mg/dL (0.70-1.30); EST Glomerular Filtration Rate 58 mL/min (>60); Est Glom Filt Rate - Afr Amer 70 mL/min (>60); Globulin 4.1 g/dL (2.2-4.2); Glucose 93 mg/dL (74-106); Potassium 3.8 mmol/L (3.5-5.1); Protein, Total 7.3 g/dL (6.4-8.2); Sodium Level 142 mmol/L (136-145)
[2020-11-08 17:14] LABS: White Blood Cells 0-5 SEEN /hpf (0-5)
[2020-11-08 18:36] VITALS: BP 167/87; PULSE 70; RESP 20; O2SAT 94
== END 2020-11-08 18:37 | disposition home or self-care (01) ==
PROVIDERS: Emergency Provider Emergency Medicine; PCP Family Medicine Geriatric Medicine
DX: R53.1 Weakness (principal); I25.10 Atherosclerotic heart disease of native coronary artery without angina pectoris; I10 Essential (primary) hypertension; F03.90 Unspecified dementia, unspecified severity, without behavioral disturbance, psychotic disturbance, mood disturbance, and anxiety; Z87.891 Personal history of nicotine dependence; Z85.048 Personal history of other malignant neoplasm of rectum, rectosigmoid junction, and anus; Z79.82 Long term (current) use of aspirin
CPT/HCPCS: 71045; 80048; 80076; 81001; 84484; 85025; 87086; 93005; 99285; P9612; A4216

== ENCOUNTER 2020-11-09 20:06 | Inpatient (IN) | payer MEDICARE, OTHER, SELFPAY ==
[2020-11-08 14:44] VITALS: BMI 35.4
[2020-11-09] VITALS (7 sets, daily range): BP systolic 155–178; BP diastolic 83–107; PULSE 66–79; RESP 17–20; TEMP 36.7–36.9; O2SAT 93–99; BMI 34.0; BMI 35.0
--- NOTE | 2020-11-09 20:16 | RAD_ITS ---
STUDY: X-RAY CHEST REASON FOR EXAM: Male, 80 years old. Confusion, recent multiple falls. TECHNIQUE: Single AP portable view of the chest. COMPARISON: 11/08/2020. FINDINGS: The lungs are clear and expanded. There is no demonstrated pleural abnormality. Sternal cerclage wires and vascular clips are present from a prior sternotomy and coronary artery bypass graft procedure (CABG). Normal mediastinum and christine. Normal visualized pulmonary arteries. Normal visualized aortic arch and descending thoracic aorta. Normal visualized thoracic spine. Normal visualized ribs, clavicles, and shoulders. There is no demonstrated abnormality of the visualized soft tissue structures of the upper abdomen. RAD/Chest 1 View (Portable) IMPRESSION: Normal x-ray examination of the chest. Electronically Signed: Alicia Miller MD at 22:05 EST Tel , Service support ,
--- NOTE | 2020-11-09 20:16 | CT_ITS ---
STUDY: CT BRAIN WITHOUT CONTRAST REASON FOR EXAM: Male, 80 years old. CONFUSION AND WEAKNESS -- HX:FREQUENT FALLS,DEMENTIA,HTN,CVA,RECTAL CANCER RADIATION DOSAGE (If Supplied By Facility): CTDIvol = ( 44.99 ) mGy, DLP = ( 779.24 ) mGycm TECHNIQUE: Transaxial CT imaging of the brain was performed without administration of intravenous contrast material. Individualized dose optimization techniques were used for this CT. COMPARISON: 06/28/2020. FINDINGS: Normal soft tissue structures. Normal calvarium. There is severe cerebral atrophy with widening of the extra-axial spaces and ventricular dilatation. There are areas of decreased attenuation within the white matter tracts of the supratentorial brain, consistent with microvascular disease changes. Normal basal ganglia and thalami. Normal brainstem. Normal cerebellum. There is no intracranial hemorrhage. There are no findings of an acute ischemic infarction. Small chronic right parietal infarct. Atherosclerotic calcification of the cavernous carotid and right vertebral arteries. Right vertebrobasilar dolichoectasia. Normal visualized paranasal sinuses. CT/Brain/Head without Contrast IMPRESSION: 1. No acute findings. 2. Small chronic right parietal infarct. 3. Extensive microvascular ischemic changes. Atrophy. Electronically Signed: Alicia Miller MD at 21:56 EST Tel , Service support ,
--- NOTE | 2020-11-09 20:16 | EKG12_ITS ---
Test Reason : WEAKNESS Blood Pressure : / mmHG Vent. Rate : 065 BPM Atrial Rate : 065 BPM P-R Int : 154 ms QRS Dur : 082 ms QT Int : 392 ms P-R-T Axes : 000 052 151 degrees QTc Int : 407 ms Normal sinus rhythm Nonspecific ST and T wave abnormality Abnormal ECG Confirmed by ANAYA NAVA, RENETTA ([id number]), social media editor MAURI SOTO ([id number]) on 11/11/2020 1:07:11 PM Referred By: JANNY Confirmed By:RENETTA JULIEN MD
--- NOTE | 2020-11-09 20:16 | ED.DCSUM_ITS ---
History of Present Illness Chief Complaint: Weakness Informant: Patient Narrative: 80-year-old male presenting with weakness and confusion. Patient states that he had some falls about 3 days ago. He was seen at [facility] and states that they sent him home. He states that Dr. Bran wants him to come into the emergency room so he can check his pills. It is unclear whether he had another fall. Patient is too weak to sit up in bed. He does know his name and date of . He denies any pain. - Past Medical History (1) Atherosclerosis of coronary artery without angina pectoris Status: Chronic Comment: CABG x 4 MCKEON-LAD, SVG-D1, SVG-OM1 and SVG-PDA 10/12/18 (2) Essential (primary) hypertension Status: Chronic (3) History of rectal cancer Status: Chronic (4) Hyperlipidemia Status: Chronic (5) H/O coronary artery bypass surgery Status: Resolved Comment: CABG x 4 MCKEON-LAD, SVG-D1, SVG-OM1 and SVG-PDA 10/12/18 (6) NSTEMI (non-ST elevated myocardial infarction) Status: Resolved Past Medical History - Allergies and Home Meds Allergies/Adverse Reactions: Allergies Penicillins Adverse Reaction (Verified 11/09/20 20:29) Unknown Prior records reviewed: Yes Past Medical History: - - Reviewed in problem list Surgical History: coronary bypass surgery, - - History of colostomy, history of rectal cancer Lives: - - Unknown Smoking Status: Former smoker Alcohol: None Drugs: None - Family History Maternal Family History: Family History (Last Reviewed 07/08/20 @ 12:56 by Anastasia Fishman) Mother Breast cancer Father Heart disease Brother Myocardial infarction Family History: Reports: Cancer - Mother with history of breast cancer. Paternal Family History: Family History (Last Reviewed 07/08/20 @ 12:56 by Anastasia Fishman) Mother Breast cancer Father Heart disease Brother Myocardial infarction Family History: Reports: High Cholesterol, Heart Disease, Hypertension Review of Systems ROS: Unable to Obtain Physical Exam Vital Signs/Narrative: Vital Signs Temp Pulse Resp BP Pulse Ox 11/09/20 20:07 98.1 F 66 19 H 175/83 H 99 Inital Vital Signs reviewed: Yes General: Well nourished, No Acute Distress Head: Normocephalic, Atraumatic Eyes: Perrl, EOMI ENT: Moist mucous membranes, No rhinorrhea Cardiovascular: Regular rate, Regular rhythm Respiratory: No distress, CTA bilaterally Abdomen: Soft, Nontender, Nondistended Back: Nontender, Normal Inspection Extremities: Nontender, No edema Skin: Normal color, No rash Neurological: Alert, Cranial nerves II-XII grossly intact Psychological: Normal affect, - - Confused Diagnostic/Tx/Re-eval - Rhythm Strip Rhythm Strip: Sinus Rhythm Rate: 65 - EKG Initial EKG Interpretation: Sinus Rhythm, Non-Specific ST Changes - Medical Decision Making After patient was initially examined nursing staff did contact his daughter who stated that he had been staying with his girlfriend for she recently had surgery and he is not getting the care he needs there. He is also having more difficulty walking. I did speak with her independently and she states that since he was seen yesterday he had fallen 2 more times. She states that he has a walker but still has trouble walking and falling. She is worried he is going to break her hip. Patient was ambulated in the ER with assistance and a walker and has a fairly stable gait but she still wishes him to be placed in rehab to get him stronger. Patient's lab work is basically unchanged from yesterday. Patient had repeat CT of the brain which was negative. Chest x-ray as interpreted by myself shows no acute cardiopulmonary process. Radiology does agree. EKG is sinus rhythm with sinus arrhythmia with nonspecific ST changes as interpreted by myself. Patient had urinalysis done yesterday which was negative I do not believe he needs a repeat urinalysis. Impression: 1. Generalized weakness 2. Multiple falls ED Disposition - Plan for ED Patient: Disposition: Acute Care [facility]
[2020-11-09 21:12] LABS: ALB/GLOB Ratio 0.8 RATIO (0.9-2.4); AST(SGOT) 82 U/L (15-37); Alanine Aminotransfer ALT/SGPT 49 U/L (16-61); Albumin, Serum 3.2 g/dL (3.2-5.0); Alkaline Phosphatase 114 U/L (45-117); Anion Gap 4 (5-15); BUN 20 mg/dL (7-18); BUN/Creat Ratio 16.7 RATIO (10-20); Calcium,Total 8.9 mg/dL (8.5-10.1); Chloride 105 mmol/L (98-107); EST Glomerular Filtration Rate 62 mL/min (>60); Est Glom Filt Rate - Afr Amer 75 mL/min (>60); Globulin 4.1 g/dL (2.2-4.2); Glucose 99 mg/dL (74-106); Potassium 3.5 mmol/L (3.5-5.1); Protein, Total 7.3 g/dL (6.4-8.2); Sodium Level 141 mmol/L (136-145)
[2020-11-09 21:17] LABS: Absolute Neutrophil Count 5.1 X10^3/uL (2.0-7.7); Basophil# 0.01 X10^3/uL; Basophil% 0.2 % (0-1); Eosinophil# 0.02 X10^3/uL; Eosinophils% 0.3 % (0-5); Hematocrit 51.9 % (40-54); Hemoglobin 17.2 g/dL (13.0-16.5); Lymphocyte % 13.7 % (19-41); Mean Corp Hgb Conc 33.1 g/dL (32-36); Mean Corpuscular Hgb 34.8 pg (27.0-32.0); Mean Corpuscular Volume 105.1 fL (80-94); Mean Platelet Vol. 10.8 fl (6.2-12.0); Monocyte# 0.53 X10^3/uL; Monocyte% 8.1 % (0-10); NRBC Flagged by Analyzer 0 % (0-5); Neutrophil # 5.09 X10^3/uL (2.7-7.7); Neutrophil % 77.4 % (47-70); Platelet Count 144 K/mm3 (150-450); RBC Distribution Width CV 13.2 % (11.6-14.6); RBC Distribution Width SD 51.8 fl (35.1-43.9); Red Blood Count 4.94 M/mm3 (4.6-6.2); White Blood Count 6.6 K/mm3 (4.4-11.0)
--- NOTE | 2020-11-09 22:19 | PCM.HP.STD ---
Problem List (1) Frequent falls Status: Acute (2) Failure to thrive in adult Status: Acute (3) History of rectal cancer Status: Chronic (4) Atherosclerosis of coronary artery without angina pectoris Status: Chronic Qualifiers: Coronary Disease-Associated Artery/Lesion type: unspecified vessel or lesion type Comment: CABG x 4 MCKEON-LAD, SVG-D1, SVG-OM1 and SVG-PDA 10/12/18 (5) H/O coronary artery bypass surgery Status: Resolved Comment: CABG x 4 MCKEON-LAD, SVG-D1, SVG-OM1 and SVG-PDA 10/12/18 (6) Essential (primary) hypertension Status: Chronic (7) Hyperlipidemia Status: Chronic Qualifiers: Hyperlipidemia type: pure hypercholesterolemia Qualified Code(s): E78.00 - Pure hypercholesterolemia, unspecified; E78.0 - Pure hypercholesterolemia (8) BPH (benign prostatic hyperplasia) Status: Chronic Qualifiers: Lower urinary tract symptom presence: unspecified whether lower urinary tract symptoms present Qualified Code(s): N40.0 - Benign prostatic hyperplasia without lower urinary tract symptoms (9) History of CVA (cerebrovascular accident) Status: Chronic (10) LEÓN (obstructive sleep apnea) Status: Chronic (11) GERD (gastroesophageal reflux disease) Status: Chronic Qualifiers: Esophagitis presence: esophagitis presence not specified Qualified Code(s): K21.9 - Gastro-esophageal reflux disease without esophagitis (12) Dementia Status: Chronic Qualifiers: Dementia type: unspecified type Dementia behavioral disturbance: without behavioral disturbance Qualified Code(s): F03.90 - Unspecified dementia without behavioral disturbance History of Present Illness Date of Admission: 11/09/20 Chief Complaint: Debility, weakness, confusion. The patient is an 80 y/o M w/ PMHx: Hx c-diff, Polycythemia vera, Former Tobacco use, BPH, Hx Rectal CA s/p colon resection/colostomy, LEÓN, CAD s/p CABG, HTN, HLD, Hx CVA, GERD, Obesity, Dementia unclear type with unclear behavioral disturbance history recently evaluted on 11/08/20 for similar history of falls/weakness, who now re-presents to the [facility] [place] ED on 11/10/20 with ongoing fatigue, malaise, generalized weakness and associated falls. He has been staying with his girlfriend recently, uses a walker normally. He normally lives with his daughter but has been helping his girlfriend recover after surgery. Work-up in the ED included T 98.1, heart rate 66, BP 175/83, respiratory rate 18, 99% room air, CBC with WBC 6.6, hemoglobin 17.2 similar to prior, platelet 144 without marked shift, CMP with BUN/creatinine 20/1.20, AST/ALT 82/49, alk phos 114, troponin 0 0.023 otherwise not marked appearing, CT head with no acute intracranial findings with noted small chronic right parietal infarct and extensive microvascular ischemic changes as well as atrophy, chest x-ray with no acute cardiopulmonary findings, UA pending upon requested evaluation of patient, EKG with sinus rhythm with nonspecific ST changes with no acute evidence of ischemia. In the ED patient ministered normal saline as well as Haldol 2 mg IV x1. The patient evaluation on 11/08/2020 afternoon with noted work-up in the ED included T 97.8, heart rate 74, BP 148/86, respiratory rate initially 36 improved to 20, initially 91% on room air improved to 94% on room air, CBC with WBC 5.8, hemoglobin 17, platelet 143 with noted lymphopenia, CMP with BUN/creatinine 19/1.27, AST/ALT 43/40, alk phos 118 otherwise not marked appearing, troponin less than 0.015, urinalysis with elevated specific [place] 1.025 otherwise not marked appearing with no evidence of UTI, preliminary urine culture from that visit with no growth, chest x-ray at that time with no acute cardiopulmonary findings. Past Medical History Past Medical History (Chronic Problems): Chronic Problems (Last Reviewed 07/08/20 @ 10:35 by Lien LINDSEY, PA) History of rectal cancer (Chronic) BPH (benign prostatic hyperplasia) (Chronic) History of CVA (cerebrovascular accident) (Chronic) LEÓN (obstructive sleep apnea) (Chronic) GERD (gastroesophageal reflux disease) (Chronic) Dementia (Chronic) Atherosclerosis of coronary artery without angina pectoris (Chronic) CABG x 4 MCKEON-LAD, SVG-D1, SVG-OM1 and SVG-PDA 10/12/18 Essential (primary) hypertension (Chronic) Hyperlipidemia (Chronic) Medical History: Medical History (Last Reviewed 07/08/20 @ 10:35 by Lien LINDSEY, PA) Atherosclerosis of coronary artery without angina pectoris (Chronic) I25.10 CABG x 4 MCKEON-LAD, SVG-D1, SVG-OM1 and SVG-PDA 10/12/18 Essential (primary) hypertension (Chronic) I10 Hyperlipidemia (Chronic) E78.5 CVA (cerebral vascular accident) I63.9 Claudication I73.9 GERD (gastroesophageal reflux disease) K21.9 History of esophageal stricture Z87.19 Obesity E66.9 Obstructive sleep apnea G47.33 Polycythemia vera D45 Rectal cancer C20 Concussion S06.0X9A Allergies Penicillins Adverse Reaction (Verified 11/09/20 20:29) Unknown Home Medications: Ambulatory Orders Medication Instructions Recorded Aspirin [Aspirin, Baby] 81 mg PO DAILY@0800 12/24/14 L.acidoph,Paracasei, B.lactis 1 ea PO DAILY 10/04/18 [Probiotic] Atorvastatin Calcium [Lipitor] 40 mg PO QHS 12/26/18 Tamsulosin HCl [Flomax] 0.4 mg PO BID 12/26/18 carvedilol 12.5 mg tablet 12.5 mg PO BID 01/16/19 Cholecalciferol (Vitamin D3) 2,000 unit PO DAILY 07/08/20 [Vitamin D3] Multivitamin with Minerals 1 ea PO DAILY 07/08/20 [Myvitalife] Ubidecarenone/Vit E/Vit E Mix 1 ea PO DAILY 07/08/20 [Co-Enzyme Q10 100 mg Softgel] Memantine HCl 10 mg PO BID 09/19/20 Rivastigmine Tartrate [Exelon] 3 mg PO BID 09/19/20 Surgical History: Surgical History (Last Reviewed 07/08/20 @ 12:56 by Anastasia Fishman) H/O coronary artery bypass surgery (Resolved) Onset Date: 10/12/18 Z95.1 CABG x 4 MCKEON-LAD, SVG-D1, SVG-OM1 and SVG-PDA 10/12/18 History of colon resection Onset Date: 2014 Z98.890, Z90.49 History of colostomy History of left heart catheterization Onset Date: 10/05/18 Z98.890 Surgical History: coronary bypass surgery, - - History of colon resection with colostomy, CABG x4. Psychiatric History: Anxiety, Depression Lives: Alone Smoking Status: Former smoker Tobacco Use: Non-smoker Alcohol: None Drugs: None - *Family History Maternal Family History: Family History (Last Reviewed 07/08/20 @ 12:56 by Anastasia Fishman) Mother Breast cancer Father Heart disease Brother Myocardial infarction History Items: Cancer - Mother with history of breast cancer. Paternal Family History: Family History (Last Reviewed 07/08/20 @ 12:56 by Anastasia Fishman) Mother Breast cancer Father Heart disease Brother Myocardial infarction History Items: High Cholesterol, Heart Disease, Hypertension Review of Systems Constitutional: Reports: Weakness, Fatigue. Denies: Anorexia, Chills, Fever, Malaise, Weight Change HEENT: Denies: Head Aches, Sinus Congestion, Sinus Drainage Cardiovascular: Denies: Chest Pain, Palpitations Respiratory: Denies: Cough, Shortness of breath at rest, Sputum production Gastrointestinal: Denies: Abdominal Pain, Nausea, Vomiting Genitourinary: Reports: Frequency. Denies: Dysuria Musculoskeletal: Reports: Back Pain, Joint Pain. Denies: Joint Tenderness Skin: Denies: Rash, Wounds Neurological: Reports: Balance problems, Confusion. Denies: Focal weakness, Numbness, Tingling Psychiatric: Denies: Anxiety, Depression, Homicidal Ideations, Suicidal Ideations Hematologic/ Lymphatic: Reports: Easy Bruising, Easy Bleeding VTE Information - Inpt Only VTE Present on Admission: No VTE Mechan Device Prophylaxis: SCD's VTE Pharm Prophylaxis ordered?: Yes Patient Problems: Active and Suspected Problems (Last Reviewed 07/08/20 @ 10:35 by Lien LINDSEY, PA) Frequent falls (Acute) Failure to thrive in adult (Acute) Subjective: Patient seated upright in the ED bed, fatigued appearing, denies any acute complaints at this time aside some mild back discomfort and being hungry. Objective: Physical Examination: General: awake, alert, oriented to self, year, month and some recent events but does appear somewhat confused with certain questions, remains cooperative, seated upright in the ED bed, fatigued otherwise no acute distress. Skin: normal color, turgor, no icterus, cyanosis except occasional staged ecchymoses. HEENT: AT/NC, EOMI, PERRLA, mildly dry MM, no carotid bruits or JVD noted. Lungs: Diminished breath sounds, greater bases, normal effort, no rales, ronchi or wheezing. Heart: Regular rate and rhythm; no gallop, rub audible. Abdomen: soft, obese, NTTP, ND, normal BS, no HSM. Extremities: no cyanosis, clubbing, or edema. Neurological: patient awake, alert, oriented as noted; cognitive function mildly decreased, suspect nearing baseline intact; pupils equally reactive to light and accomodation; cranial nerves II-XII grossly normal, moving all 4 extremities, no focal deficits, strength moderately to severely globally decreased. Psychiatric: affect appears fatigued, mildly flat, no acute evidence of depressive or anxiety feelings. - Physical Exam Vitals/I&O's: Vital Signs Temp Pulse Resp BP Pulse Ox 98.1 F 66 19 H 175/83 H 99 11/09/20 20:07 11/09/20 20:07 11/09/20 20:07 11/09/20 20:07 11/09/20 20:07 Oxygen Delivery Method Room Air Weight: 230 lb 6.129 oz Body Mass Index (BMI) 34.0 Intake and Output for Last 24 Hours 11/07/20 11/08/20 11/09/20 23:59 23:59 23:59 Intake Total 500 / 500 Balance 500 / 500 Laboratory Results 11/09/20 20:15: WBC 6.6, RBC 4.94, Hgb 17.2 H, Hct 51.9, MCV 105.1 H, MCH 34.8 H, MCHC 33.1, RDW Std Deviation 51.8 H, RDW Coeff of Kush 13.2, Plt Count 144 L, MPV 10.8, Immature Gran % (Auto) 0.300, Neut % (Auto) 77.4 H, Lymph % (Auto) 13.7 L, [place] % (Auto) 8.1, Eos % (Auto) 0.3, Baso % (Auto) 0.2, Absolute Neuts (auto) 5.1, Absolute Lymphs (auto) 0.90, Nucleated RBC % 0 11/09/20 20:15: Sodium 141, Potassium 3.5, Chloride 105, Carbon Dioxide 32.0, Anion Gap 4 L, BUN 20 H, Creatinine 1.20, Estim Creat Clear Calc 49.10, Est GFR (MDRD) Af Amer 75, Est GFR (MDRD) Non-Af 62, BUN/Creatinine Ratio 16.7, Glucose 99, Calcium 8.9, Total Bilirubin 0.70, AST 82 H, ALT 49, Alkaline Phosphatase 114, Troponin I 0.023, Total Protein 7.3, Albumin 3.2, Globulin 4.1, Albumin/Globulin Ratio 0.8 L Assessment/Plan All Active Problems (Last Reviewed 07/08/20 @ 10:35 by Lien Mcgrath PA, PA) Frequent falls (Acute) Failure to thrive in adult (Acute) H/O coronary artery bypass surgery (Resolved 10/12/18) NSTEMI (non-ST elevated myocardial infarction) (Resolved) Acute coronary syndrome (Resolved) Chest pain (Resolved) Dyspnea on exertion (Resolved) The patient is an 80 y/o M w/ PMHx: Hx c-diff, Polycythemia vera, Former Tobacco use, BPH, Hx Rectal CA s/p colon resection/colostomy, LEÓN, CAD s/p CABG, HTN, HLD, Hx CVA, GERD, Obesity, Dementia unclear type with unclear behavioral disturbance history recently evaluted on 11/08/20 for similar history of falls/weakness, who now re-presents to the [facility] [place] ED on 11/10/20 with ongoing fatigue, malaise, generalized weakness and associated falls. 1. Debility, Weakness associated with Frequent Falls, Failure to Thrive Adult: We will admit to medical surgical floor, given primary weakness, debility complaints likely will need SNF, will request rapid COVID antigen, maintain on fall precautions, judiciously hydrate as needed especially given elevated specific gravity on recent evaluation in the ED the day prior, obtain magnesium with supplementation if necessary, obtain PT/OT/case management consult for discharge planning. Urinalysis pending but if remarkable would initiate treatment for UTI however 11/08/2020 urinalysis was not marked thus do not expect it to be significant. 2. CAD: s/p CABG with MCKEON-LAD, SVG-D1, SVG-OM1 and SVG-PDA 10/12/2018, continue aspirin, statin, Coreg with hold parameters, not on JONH inhibitor/ARB. 3. Dementia, possibly Alzheimer's dementia with unclear behavioral disturbance history: We will continue patient home Exelon and memantine regimen, maintain on fall precautions, PT/OT/case management consultations for discharge planning.. 4. Hypertension: Continue home regimen including Coreg with hold parameters, PRN hydralazine. 5. Hyperlipidemia: Continue home statin regimen. 6. BPH: We will continue patient home Flomax regimen. 7. History of rectal adenocarcinoma w/ associated PCV: Patient with history of Dx on c-scope 04/2014, underwent neoadjuvant chemoradiation concomitantly with Xeloda as well as transmesorectal resection and permanent colostomy with follow-up adjuvant chemotherapy with associated polycythemia following, continues to following w/ Dr. Edmondson. 8. History CVA: We will continue aspirin, statin, hypertensive regimen is noted. 9. Obesity: Weight loss and lifestyle changes encouraged. 10. Former tobacco use: Encourage continued tobacco cessation. 11. LEÓN: Unable to clarify if patient uses CPAP nightly. Await family input 11/10/2020 a.m. 12. DVT prophylaxis: SCDs, Lovenox. OBSV E&M: 69338 Initial observation care L3
[2020-11-09] MEDS: hydrALAZINE 20 MG/ML Vial 10 MG IV (23:32)
[2020-11-10] VITALS (12 sets, daily range): BP systolic 145–196; BP diastolic 73–99; PULSE 64–72; RESP 18–24; TEMP 36.7–37.7; O2SAT 93–94
[2020-11-10 04:52] LABS: Absolute Lymphocyte Count 0.98 X10^3/uL (0.83-4.51); Absolute Neutrophil Count 4.4 X10^3/uL (2.0-7.7); Basophil# 0.01 X10^3/uL; Basophil% 0.2 % (0-1); Eosinophil# 0.03 X10^3/uL; Eosinophils% 0.5 % (0-5); Hematocrit 48.6 % (40-54); Hemoglobin 16.1 g/dL (13.0-16.5); Lymphocyte # 0.98 X10^3/ul (4.0); Lymphocyte % 16.4 % (19-41); Mean Corp Hgb Conc 33.1 g/dL (32-36); Mean Corpuscular Hgb 34.2 pg (27.0-32.0); Mean Corpuscular Volume 103.2 fL (80-94); Mean Platelet Vol. 10.7 fl (6.2-12.0); Monocyte# 0.49 X10^3/uL; Monocyte% 8.2 % (0-10); NRBC Flagged by Analyzer 0 % (0-5); Neutrophil # 4.43 X10^3/uL (2.7-7.7); Neutrophil % 74.4 % (47-70); Platelet Count 129 K/mm3 (150-450); RBC Distribution Width CV 13.2 % (11.6-14.6); Red Blood Count 4.71 M/mm3 (4.6-6.2)
[2020-11-10 05:05] LABS: Mucous, Urine 0 SEEN /hpf (<or=2+); Red Blood Cells-Urine 0 SEEN /hpf (0-5); Squamous Epithelial Cells - UA 0 SEEN /hpf (0-5)
[2020-11-10 05:06] LABS: Color, Urine Yellow (Yellow); Glucose, Dipstick Normal (Normal); Ketone-Dipstick Negative (Negative); Leukocyte Esterase-Dipstick 100 /ul (Negative); Nitrite-Dipstick Negative (Negative); Occult Blood-Urine Negative /ul (Negative); Protein-Dipstick 30 mg/dl (Negative); Urine Bilirubin Dipstick Negative (Negative); Urine Clarity Clear (Clear); Urine Urobilinogen Normal (Normal)
[2020-11-10 05:20] LABS: Bacteria RARE /hpf (None Seen); White Blood Cells 10-25 SEEN /hpf (0-5)
[2020-11-10 05:26] LABS: ALB/GLOB Ratio 0.7 RATIO (0.9-2.4); AST(SGOT) 73 U/L (15-37); Alanine Aminotransfer ALT/SGPT 43 U/L (16-61); Albumin, Serum 2.7 g/dL (3.2-5.0); Alkaline Phosphatase 104 U/L (45-117); Anion Gap 9 (5-15); BUN 21 mg/dL (7-18); BUN/Creat Ratio 19.8 RATIO (10-20); CPK Total, Creatine Kinase 1280 U/L (39-308); Calcium,Total 8.5 mg/dL (8.5-10.1); Chloride 108 mmol/L (98-107); Creatinine, Serum 1.06 mg/dL (0.70-1.30); EST Glomerular Filtration Rate 71 mL/min (>60); Est Glom Filt Rate - Afr Amer 86 mL/min (>60); Estimated Creatinine Clearance 51.97 ml/min; Globulin 3.8 g/dL (2.2-4.2); Glucose 105 mg/dL (74-106); Potassium 3.4 mmol/L (3.5-5.1); Protein, Total 6.5 g/dL (6.4-8.2); Sodium Level 142 mmol/L (136-145); T4 Free Direct 1.04 ng/dL (0.76-1.46); Thyroid Stim Hormone (TSH) 2.35 uIU/mL (0.358-3.74)
[2020-11-10] MEDS: hydrALAZINE 20 MG/ML Vial 10 MG IV ×2 (05:52→21:47)
[2020-11-10] MEDS: Metoprolol Tartrate 5 MG/5 ML Vial IV (07:00)
[2020-11-10] MEDS: Rivastigmine Tartrate 1.5 MG Capsule 3 MG PO ×2 (08:22→21:47)
[2020-11-10] MEDS: Carvedilol 12.5 MG Tablet PO ×2 (08:22→21:47)
[2020-11-10] MEDS: Tamsulosin HCl 0.4 MG Capsule PO ×2 (08:22→21:47)
[2020-11-10] MEDS: Enoxaparin 40 MG/0.4 ML Syringe SC (08:22)
[2020-11-10] MEDS: Aspirin 81 MG TAB.CHEW PO (08:22)
[2020-11-10] MEDS: Memantine Hydrochloride 10 MG Tablet PO ×2 (08:22→21:50)
[2020-11-10] MEDS: 0.9% Saline Lock 10 ML Syringe IV (10:03)
[2020-11-10] MEDS: 0.9% Normal Saline 1,000 ML 125 ML IV ×2 (10:03→17:58)
--- NOTE | 2020-11-10 11:11 | PCM.PN.HOSP ---
Patient Problems: Active and Suspected Problems (Last Reviewed 07/08/20 @ 10:35 by Lien LINDSEY, PA) Frequent falls (Acute) Failure to thrive in adult (Acute) Subjective: Patient seen and examined. He was admitted with a complaint of frequent falls, weakness and debility as well as confusion. Patient does have a history of dementia of unclear type with some behavioral disturbance and was recently evaluated on 11/08/2020 for history of falls and weakness. He has been staying with his girlfriend and used a walker at home. CT of the head showed no acute intracranial findings with small chronic right parietal infarct. Chest x-ray was also negative. EKG showed no acute ST changes. He was managed for debility due to frequent falls. Patient lying in bed today. He has no complaints this morning. He does appear confused as he is alert and oriented to person but thinks he is in [place] and things were in 2018. He has no active complaints. He has remained hemodynamically stable. Blood pressure noted to be elevated this morning at 170/99. CPK was elevated at 1280. Vitals/I&O's: Vital Signs Temp Pulse Resp BP Pulse Ox 98.7 F 68 24 H 170/99 H 93 11/10/20 08:02 11/10/20 08:02 11/10/20 08:02 11/10/20 08:02 11/10/20 08:02 Oxygen Delivery Method Room Air Weight: 223 lb 12.307 oz Body Mass Index (BMI) 35.0 Intake and Output for Last 24 Hours 11/08/20 11/09/20 11/10/20 23:59 23:59 23:59 Intake Total 500 / 500 200 / 200 Output Total 50 / 50 Balance 500 / 500 150 / 150 General: Alert, Cooperative, No apparent distress, Confused HEENT: Atraumatic, PERRLA, EOMI, Normocephalic Oral: Dry Mucosa Neck: Supple, No JVD, Negative Carotid Bruits Lungs: Clear to auscultation, Normal air movement, No rhonchi, No wheeze, No rales Cardiovascular: Regular rate, Regular Rhythm, Normal S1, Normal S2, No murmurs Abdomen: Bowel Sounds Present, Soft, Non Tender Extremities: No edema, Capillary Refill Less than 3 Seconds Skin: No rashes, No breakdown Musculoskeletal: No Tenderness to Palpation of Joints or Extremities Lymphatic: No Cervical, Supraclavicular, or Inguinal Adenopathy Neurological: Cranial nerves II-XII grossly intact, Motor Exam 5/5 strength throughout, Sensory exam intact to light touch and pain Psych/Mental Status: Flat Affect Microbiology Past 72 Hours 11/09/20 23:20 Mucosa - Nasopharyngeal SARS-CoV-2 Antigen (Rapid) - Final Laboratory Results 11/09/20 16:25: Magnesium 2.0 11/09/20 20:15: WBC 6.6, RBC 4.94, Hgb 17.2 H, Hct 51.9, MCV 105.1 H, MCH 34.8 H, MCHC 33.1, RDW Std Deviation 51.8 H, RDW Coeff of Kush 13.2, Plt Count 144 L, MPV 10.8, Immature Gran % (Auto) 0.300, Neut % (Auto) 77.4 H, Lymph % (Auto) 13.7 L, [place] % (Auto) 8.1, Eos % (Auto) 0.3, Baso % (Auto) 0.2, Absolute Neuts (auto) 5.1, Absolute Lymphs (auto) 0.90, Nucleated RBC % 0 11/09/20 20:15: Sodium 141, Potassium 3.5, Chloride 105, Carbon Dioxide 32.0, Anion Gap 4 L, BUN 20 H, Creatinine 1.20, Estim Creat Clear Calc 49.10, Est GFR (MDRD) Af Amer 75, Est GFR (MDRD) Non-Af 62, BUN/Creatinine Ratio 16.7, Glucose 99, Calcium 8.9, Total Bilirubin 0.70, AST 82 H, ALT 49, Alkaline Phosphatase 114, Troponin I 0.023, Total Protein 7.3, Albumin 3.2, Globulin 4.1, Albumin/Globulin Ratio 0.8 L 11/10/20 04:42: WBC 6.0, RBC 4.71, Hgb 16.1, Hct 48.6, MCV 103.2 H, MCH 34.2 H, MCHC 33.1, RDW Std Deviation 51.0 H, RDW Coeff of Kush 13.2, Plt Count 129 L, MPV 10.7, Immature Gran % (Auto) 0.300, Neut % (Auto) 74.4 H, Lymph % (Auto) 16.4 L, [place] % (Auto) 8.2, Eos % (Auto) 0.5, Baso % (Auto) 0.2, Absolute Neuts (auto) 4.4, Absolute Lymphs (auto) 0.98, Nucleated RBC % 0 11/10/20 04:42: Sodium 142, Potassium 3.4 L, Chloride 108 H, Carbon Dioxide 25.0, Anion Gap 9, BUN 21 H, Creatinine 1.06, Estim Creat Clear Calc 51.97, Est GFR (MDRD) Af Amer 86, Est GFR (MDRD) Non-Af 71, BUN/Creatinine Ratio 19.8, Glucose 105, Calcium 8.5, Total Bilirubin 0.50, AST 73 H, ALT 43, Alkaline Phosphatase 104, Total Creatine Kinase 1280 H, Total Protein 6.5, Albumin 2.7 L, Globulin 3.8, Albumin/Globulin Ratio 0.7 L, TSH 2.35, Free T4 1.04 11/10/20 04:55: Urine Color Yellow, Urine Clarity Clear, Urine pH 7.0, Ur Specific [place] 1.010, Urine Protein 30 H, Urine Glucose (UA) Normal, Urine Ketones Negative, Urine Occult Blood Negative, Urine Nitrite Negative, Urine Bilirubin Negative, Urine Urobilinogen Normal, Ur Leukocyte Esterase 100 H, Urine RBC 0 SEEN, Urine WBC 10-25 SEEN, Ur Squamous Epith Cells 0 SEEN, Urine Bacteria RARE, Urine Mucus 0 SEEN Diagnostic Data Brain CT 11/09/20 20:16 IMPRESSION: 1. No acute findings. 2. Small chronic right parietal infarct. 3. Extensive microvascular ischemic changes. Atrophy. Electronically Signed: Alicia Miller MD at 21:56 EST Tel , Service support , Chest X-Ray 11/09/20 20:16 IMPRESSION: Normal x-ray examination of the chest. Electronically Signed: Alicia Miller MD at 22:05 EST Tel , Service support , Current Medications Acetaminophen (Acetaminophen 325 Mg Tablet) 650 mg PO Q6H PRN PRN PRN Reason: Pain Score 1-10/Temp > 100.7 F Al Hydroxide/Mg Hydroxide (Mag Hydrox/Al Hydrox/Simeth 30 Ml Udc) 30 ml PO Q6H PRN PRN PRN Reason: Gastric Burning Albuterol Sulfate (Albuterol 2.5 Mg/3 Ml Vial.Neb.) 2.5 mg INHALATION Q2H PRN PRN PRN Reason: Dyspnea, wheezing Aspirin (Aspirin 81 Mg Tab.Chew) 81 mg PO DAILY@0800 [facility] Last Admin: 11/10/20 08:22 Dose: 81 mg Documented by: Atorvastatin Calcium (Atorvastatin Calcium 40 Mg Tablet) 40 mg PO QHS [facility] Carvedilol (Carvedilol 12.5 Mg Tablet) 12.5 mg PO BID [facility] Last Admin: 11/10/20 08:22 Dose: 12.5 mg Documented by: Enoxaparin Sodium (Enoxaparin 40 Mg/0.4 Ml Syringe) 40 mg SC DAILY [facility] Last Admin: 11/10/20 08:22 Dose: 40 mg Documented by: Guaifenesin (Guaifenesin 10 Ml Udc (200mg/10ml)) 20 ml PO Q4H PRN PRN PRN Reason: COUGH Hydralazine HCl (Hydralazine 20 Mg/Ml Vial) 10 mg IV Q4H PRN PRN PRN Reason: SBP > 160 Last Admin: 11/10/20 05:52 Dose: 10 mg Documented by: Sodium Chloride () 1,000 mls @ 125 mls/hr IV .Q8H [facility] Stop: 11/11/20 00:04 Last Admin: 11/10/20 10:03 Dose: 125 mls/hr Documented by: Magnesium Hydroxide (Magnesium Hydroxide 30 Ml Udc) 30 ml PO DAILY PRN PRN PRN Reason: Constipation Melatonin (Melatonin 3 Mg Tablet) 3 mg PO QHS PRN PRN PRN Reason: INSOMNIA Memantine (Memantine Hydrochloride 10 Mg Tablet) 10 mg PO BID [facility] Last Admin: 11/10/20 08:22 Dose: 10 mg Documented by: Metoprolol Tartrate (Metoprolol Tartrate 5 Mg/5 Ml Vial) 5 mg IV Q6H PRN PRN PRN Reason: SBP > 160, use after hydralazine. Last Admin: 11/10/20 07:00 Dose: 5 mg Documented by: Nitroglycerin (Nitroglycerin (Inpatient Use) 0.4 Mg Tab.Subl) 0.4 mg SUBLINGUAL Q5M PRN PRN Reason: CARDIAC/CHEST PAIN Ondansetron HCl (Ondansetron 4 Mg/2 Ml Vial) 4 mg IV Q8H PRN PRN PRN Reason: NAUSEA/VOMITING Prochlorperazine Edisylate (Prochlorperazine 10 Mg/2 Ml Vial) 5 mg IV Q4H PRN PRN PRN Reason: Breakthrough nausea/vomiting Psyllium Hydrophilic Mucilloid (Psyllium 1 Packet) 1 packet PO DAILY PRN PRN PRN Reason: Constipation Rivastigmine Tartrate (Rivastigmine Tartrate 1.5 Mg Capsule) 3 mg PO BID [facility] Last Admin: 11/10/20 08:22 Dose: 3 mg Documented by: Senna/Docusate Sodium (Senna/Docusate Sodium 1 Tablet) 2 tablet PO BID PRN PRN PRN Reason: Constipation Sodium Chloride (0.9% Saline Lock 10 Ml Syringe) 10 - 40 ml IV UD PRN PRN Reason: SALINE FLUSH Last Admin: 11/10/20 10:03 Dose: 10 ml Documented by: Tamsulosin HCl (Tamsulosin Hcl 0.4 Mg Capsule) 0.4 mg PO BID [facility] Last Admin: 11/10/20 08:22 Dose: 0.4 mg Documented by: Throat Lozenges (Benzocaine/Menthol 1 Lozenge) 1 lozenge MUCOUS MEM Q2H PRN PRN PRN Reason: SORE THROAT STROKE Vital Signs/Narrative: Vital Signs Temp Pulse Resp BP BP Pulse Ox 11/10/20 08:02 98.7 F 68 24 H 170/99 H 93 11/10/20 07:15 64 165/77 H 94 11/10/20 07:13 93 Medical Necessity - Tobacco Use Smoking Status: Former smoker Tobacco Use: Non-smoker Assessment/Plan All Active Problems (Last Reviewed 07/08/20 @ 10:35 by Lien LINDSEY, PA) Frequent falls (Acute) Failure to thrive in adult (Acute) H/O coronary artery bypass surgery (Resolved 10/12/18) NSTEMI (non-ST elevated myocardial infarction) (Resolved) Acute coronary syndrome (Resolved) Chest pain (Resolved) Dyspnea on exertion (Resolved) #Debility due to mechanical falls patient is weak, and has a flat affect. PT/OT on board fall precautions. Will get MRI to evaluate further Falls could just be due to a worsening of the patient's dementia. #CAD s/p CABG; on aspirin, statin and coreg. #Dementia, likely alzheimer's dementia On memantine and Exelon. PT/OT On board fall precautions #Hypertension: Poorly controlled. On Coreg. IV hydralazine.. Hyperlipidemia: On statin BPH: On Flomax #History of rectal adenocarcinoma Follow-up with Dr. Edmondson on outpatient basis. #history of CVA: on aspirin, statin and coreg. #LEÓN: stable. CPAP DVT prophylaxis: lovenox OBSV E&M: 24492 Subsequent observation care L2
[2020-11-10] MEDS: Atorvastatin Calcium 40 MG Tablet PO (21:47)
[2020-11-11] VITALS (11 sets, daily range): BP systolic 144–180; BP diastolic 76–91; PULSE 60–71; RESP 16–22; TEMP 36.6–37.2; O2SAT 92–96
--- NOTE | 2020-11-11 05:55 | MRI_ITS ---
ACR Level 3 findings have been noted. An addendum which confirms receipt of the report will follow. STUDY: MRI BRAIN WITHOUT CONTRAST REASON FOR EXAM: Male, 80 years old debilitated patient with frequent falls. Patient has dementia, hx of stroke, and history of rectal cancer. TECHNIQUE: Standardized multiplanar fat and water weighted pulse sequences were obtained. Several images are limited by patient motion. COMPARISON: None. FINDINGS: There is mild cerebral atrophy with widening of the extra-axial spaces and moderate ventricular dilatation. There are multiple confluent white matter hyperintensities, distributed throughout the deep white matter tracts of the cerebral hemispheres, consistent with severe chronic white matter ischemic changes. There is a tiny focus of restricted effusion in left parietal lobe best seen on diffusion weighted image #22 consistent with acute infarct. There is a tiny focus of susceptibility artifact in left cerebellum that may represent a tiny area focus of petechial hemorrhage or calcification. There are prominent perivascular spaces (PVS) involving the basal ganglia. Normal thalami. There is no extra-axial fluid accumulation. Normal flow voids within the major intracranial circulation suggesting patency by spin echo criteria. There is tortuosity of the basilar artery. Normal sella turcica, pituitary gland, infundibular stalk, optic chiasm and hypothalamus. Normal tectal plate and pineal gland. There are chronic white matter ischemic changes of the sai. The midbrain and medulla are otherwise normal. There is encephalomalacia involving the left lateral cerebellum possibly secondary to old infarct. There are large basal cisterns. Normal bilateral temporal bones. Normal bilateral internal auditory canals. No demonstrated orbital abnormality, within the constraints of a routine brain study. There is mucoperiosteal inflammatory disease of the paranasal sinuses consistent with mild chronic sinusitis. Normal calvarium and skull base. Normal visualized soft tissue structures. There is a prominent abnormal signal adjacent to the odontoid suggesting possible pannus. MRI/Brain without Contrast IMPRESSION: 1. Tiny acute infarct involving the left parietal lobe. 2. Moderate ventriculomegaly, generalized involutional changes of the brain, and sequela of severe microvascular disease. Electronically Signed: Tia Mayo MD at 14:31 EST , Service support ,
--- NOTE | 2020-11-11 08:19 | PN_ITS ---
Patient Problems: Active and Suspected Problems (Last Reviewed 07/08/20 @ 10:35 by Lien Mcgrath PA, PA) Frequent falls (Acute) Failure to thrive in adult (Acute) Reason for Visit: Follow-up on debility/recurrent falls/confusion Subjective: Patient was seen and examined. He appears confused. Oriented to self, not to place. He knows the year and time but not the current season. No acute events overnight. Objective: Physical exam: General: Alert, Cooperative, No apparent distress, Confused HEENT: Atraumatic, PERRLA, EOMI, Normocephalic Oral: Dry Mucosa Neck: Supple, No JVD, Negative Carotid Bruits Lungs: Clear to auscultation, Normal air movement, No rhonchi, No wheeze, No rales Cardiovascular: Regular rate, Regular Rhythm, Normal S1, Normal S2, No murmurs Abdomen: Bowel Sounds Present, Soft, Non Tender Extremities: No edema, Capillary Refill Less than 3 Seconds Skin: No rashes, No breakdown Musculoskeletal: No Tenderness to Palpation of Joints or Extremities Lymphatic: No Cervical, Supraclavicular, or Inguinal Adenopathy Neurological: Cranial nerves II-XII grossly intact, Motor Exam 5/5 strength throughout, Sensory exam intact to light touch and pain Psych/Mental Status: Flat Affect Vitals/I&O's: Vital Signs Temp Pulse Resp BP Pulse Ox 99.0 F 71 18 158/91 H 93 11/11/20 02:58 11/11/20 02:58 11/11/20 02:58 11/11/20 02:58 11/11/20 02:58 Oxygen Delivery Method Room Air Weight: 101.5 kg Body Mass Index (BMI) 35.0 Intake and Output for Last 24 Hours 11/09/20 11/10/20 11/11/20 23:59 23:59 23:59 Intake Total 500 / 500 2489.58 / 2609.58 1320 / 1320 Output Total 50 / 50 Balance 500 / 500 2439.58 / 2559.58 1320 / 1320 Microbiology Past 72 Hours 11/09/20 23:20 Mucosa - Nasopharyngeal SARS-CoV-2 Antigen (Rapid) - Final Current Medications Acetaminophen (Acetaminophen 325 Mg Tablet) 650 mg PO Q6H PRN PRN PRN Reason: Pain Score 1-10/Temp > 100.7 F Al Hydroxide/Mg Hydroxide (Mag Hydrox/Al Hydrox/Simeth 30 Ml Udc) 30 ml PO Q6H PRN PRN PRN Reason: Gastric Burning Albuterol Sulfate (Albuterol 2.5 Mg/3 Ml Vial.Neb.) 2.5 mg INHALATION Q2H PRN PRN PRN Reason: Dyspnea, wheezing Aspirin (Aspirin 81 Mg Tab.Chew) 81 mg PO DAILY@0800 [facility] Last Admin: 11/10/20 08:22 Dose: 81 mg Documented by: Atorvastatin Calcium (Atorvastatin Calcium 40 Mg Tablet) 40 mg PO QHS [facility] Last Admin: 11/10/20 21:47 Dose: 40 mg Documented by: Carvedilol (Carvedilol 25 Mg Tablet) 25 mg PO BID [facility] Enoxaparin Sodium (Enoxaparin 40 Mg/0.4 Ml Syringe) 40 mg SC DAILY [facility] Last Admin: 11/10/20 08:22 Dose: 40 mg Documented by: Guaifenesin (Guaifenesin 10 Ml Udc (200mg/10ml)) 20 ml PO Q4H PRN PRN PRN Reason: COUGH Hydralazine HCl (Hydralazine 20 Mg/Ml Vial) 10 mg IV Q4H PRN PRN PRN Reason: SBP > 160 Last Admin: 11/10/20 21:47 Dose: 10 mg Documented by: Magnesium Hydroxide (Magnesium Hydroxide 30 Ml Udc) 30 ml PO DAILY PRN PRN PRN Reason: Constipation Melatonin (Melatonin 3 Mg Tablet) 3 mg PO QHS PRN PRN PRN Reason: INSOMNIA Memantine (Memantine Hydrochloride 10 Mg Tablet) 10 mg PO BID [facility] Last Admin: 11/10/20 21:50 Dose: 10 mg Documented by: Metoprolol Tartrate (Metoprolol Tartrate 5 Mg/5 Ml Vial) 5 mg IV Q6H PRN PRN PRN Reason: SBP > 160, use after hydralazine. Last Admin: 11/10/20 07:00 Dose: 5 mg Documented by: Nitroglycerin (Nitroglycerin (Inpatient Use) 0.4 Mg Tab.Subl) 0.4 mg SUBLINGUAL Q5M PRN PRN Reason: CARDIAC/CHEST PAIN Ondansetron HCl (Ondansetron 4 Mg/2 Ml Vial) 4 mg IV Q8H PRN PRN PRN Reason: NAUSEA/VOMITING Prochlorperazine Edisylate (Prochlorperazine 10 Mg/2 Ml Vial) 5 mg IV Q4H PRN PRN PRN Reason: Breakthrough nausea/vomiting Psyllium Hydrophilic Mucilloid (Psyllium 1 Packet) 1 packet PO DAILY PRN PRN PRN Reason: Constipation Rivastigmine Tartrate (Rivastigmine Tartrate 1.5 Mg Capsule) 3 mg PO BID [facility] Last Admin: 11/10/20 21:47 Dose: 3 mg Documented by: Senna/Docusate Sodium (Senna/Docusate Sodium 1 Tablet) 2 tablet PO BID PRN PRN PRN Reason: Constipation Sodium Chloride (0.9% Saline Lock 10 Ml Syringe) 10 - 40 ml IV UD PRN PRN Reason: SALINE FLUSH Last Admin: 11/10/20 10:03 Dose: 10 ml Documented by: Tamsulosin HCl (Tamsulosin Hcl 0.4 Mg Capsule) 0.4 mg PO BID [facility] Last Admin: 11/10/20 21:47 Dose: 0.4 mg Documented by: Throat Lozenges (Benzocaine/Menthol 1 Lozenge) 1 lozenge MUCOUS MEM Q2H PRN PRN PRN Reason: SORE THROAT Medical Necessity - Tobacco Use Smoking Status: Former smoker Tobacco Use: Non-smoker Assessment/Plan All Active Problems (Last Reviewed 07/08/20 @ 10:35 by Lien Mcgrath PA, PA) Frequent falls (Acute) Failure to thrive in adult (Acute) H/O coronary artery bypass surgery (Resolved 10/12/18) NSTEMI (non-ST elevated myocardial infarction) (Resolved) Acute coronary syndrome (Resolved) Chest pain (Resolved) Dyspnea on exertion (Resolved) 1. Debility/recurrent mechanical falls, unclear etiology MRI of the brain is pending PT/OT consulted; social work working on discharge planning 2. Hypertension, uncontrolled, on Coreg and as needed hydralazine Increased Coreg to 25 mg p.o. twice daily, continue on hydralazine as needed 3. Dementia without behavioral disturbances, continue on rivastigmine/Namenda 4. CAD status post CABG/history of CVA/hyperlipidemia Continue on aspirin, statin, Coreg 5. Rectal adenocarcinoma, status post transmesorectal resection, status post colostomy status post radiation and chemotherapy Follows with oncology in the outpatient 6. DVT prophylaxis with Lovenox subcu Inpatient E&M: 55104 Subs Hosp L2
[2020-11-11 08:52] LABS: Absolute Lymphocyte Count 0.92 X10^3/uL (0.83-4.51); Basophil# 0.01 X10^3/uL; Basophil% 0.2 % (0-1); Eosinophil# 0.03 X10^3/uL; Eosinophils% 0.6 % (0-5); Hemoglobin 15.6 g/dL (13.0-16.5); Lymphocyte # 0.92 X10^3/ul (4.0); Lymphocyte % 17.1 % (19-41); Mean Corp Hgb Conc 33.2 g/dL (32-36); Mean Corpuscular Hgb 34.1 pg (27.0-32.0); Mean Corpuscular Volume 102.8 fL (80-94); Monocyte# 0.44 X10^3/uL; Monocyte% 8.2 % (0-10); NRBC Flagged by Analyzer 0 % (0-5); Neutrophil # 3.96 X10^3/uL (2.7-7.7); Neutrophil % 73.5 % (47-70); Platelet Count 118 K/mm3 (150-450); RBC Distribution Width CV 13.2 % (11.6-14.6); RBC Distribution Width SD 50.9 fl (35.1-43.9); Red Blood Count 4.57 M/mm3 (4.6-6.2); White Blood Count 5.4 K/mm3 (4.4-11.0)
[2020-11-11 09:16] LABS: ALB/GLOB Ratio 0.7 RATIO (0.9-2.4); AST(SGOT) 57 U/L (15-37); Alanine Aminotransfer ALT/SGPT 40 U/L (16-61); Albumin, Serum 2.5 g/dL (3.2-5.0); Alkaline Phosphatase 91 U/L (45-117); Anion Gap 8 (5-15); BUN 19 mg/dL (7-18); BUN/Creat Ratio 18.6 RATIO (10-20); Calcium,Total 8.2 mg/dL (8.5-10.1); Chloride 109 mmol/L (98-107); Creatinine, Serum 1.02 mg/dL (0.70-1.30); EST Glomerular Filtration Rate 75 mL/min (>60); Est Glom Filt Rate - Afr Amer 90 mL/min (>60); Globulin 3.6 g/dL (2.2-4.2); Glucose 99 mg/dL (74-106); Potassium 3.6 mmol/L (3.5-5.1); Protein, Total 6.1 g/dL (6.4-8.2); Sodium Level 141 mmol/L (136-145)
[2020-11-11 09:42] LABS: CPK Total, Creatine Kinase 564 U/L (39-308)
[2020-11-11] MEDS: Aspirin 81 MG TAB.CHEW PO (10:11)
[2020-11-11] MEDS: Rivastigmine Tartrate 1.5 MG Capsule 3 MG PO ×2 (10:11→22:17)
[2020-11-11] MEDS: Tamsulosin HCl 0.4 MG Capsule PO ×2 (10:12→22:17)
[2020-11-11] MEDS: Memantine Hydrochloride 10 MG Tablet PO ×2 (10:12→22:17)
[2020-11-11] MEDS: Enoxaparin 40 MG/0.4 ML Syringe SC (10:12)
[2020-11-11] MEDS: 0.9% Saline Lock 10 ML Syringe IV (10:16)
[2020-11-11] MEDS: Carvedilol 25 MG Tablet PO ×2 (10:17→22:17)
[2020-11-11] MEDS: hydrALAZINE 20 MG/ML Vial 10 MG IV (10:17)
[2020-11-11] MEDS: Acetaminophen 325 MG Tablet 650 MG PO ×2 (10:36→15:52)
--- NOTE | 2020-11-11 13:20 | CASEMGMT ---
WON HO called daughter Bouchra for initial transition planning/care coordination assessment, as patient is confused. WON HO introduced self and role at [facility]. Daughter willing to participate in assessment and is able to answer all questions appropriately. Care providers, pharmacy, and demographics verified. Daughter wishes for patient to discharge to SNF per therapy recommendations. Kyler Shook states that patient has been to [facility] in the past and that is where they would prefer for him to go to. Daughter Bouchra had no further question or concerns at this time. PCP: Shant Specialists: none Preferred Pharmacy: [facility] Insurance: [facility] Prescription Benefit: yes Living Will/HPOA: yes, Bertha June, daughter HPOA [phone] LNOK: daughters, girlfriend Living Arrangements: Patient is currently staying with girlfriend but normal lives with daughter Bouchra. Bouchra is staying with her daughter as she recently had surgery. Patient is normally independent at home. Transportation: Daughter or girlfriend DME/HHC: Patient has shower chair, raised toilet, cane, walker, grab bars, and wheelchair at home. Patient has been to [facility] in the past. Disposition Plan: Patient to discharge to SNF. Echo PANDA, RN, CM
--- NOTE | 2020-11-11 13:45 | CASEMGMT ---
WON HO received call from daughter Bertha, RYLANRJ. Bertha states that her first choice would be for patient to stay at hospital in TCU or rehab, if TCU or rehab not available then next choice is [facility]. Bertha states that she will fax Living Will and HPOA to unit tomorrow. WON HO updated JIMMY Carr regarding SNF referral.
--- NOTE | 2020-11-11 14:27 | CASEMGMT ---
Social Work Note SW updated that pt's daughter is requesting [facility] as first choice (RN CM updated dtr that TCU doesn't have any beds available) and [facility] is second choice as pt has been there before. JIMMY placed a call to referral line and provided [facility] referral. [facility] not able to accept pt. JIMMY placed a call to Regina at [facility] and updated her on referral. JIMMY updated Regina that pt is medically ready for discharge today. SW faxed referral to [facility]. Per pt's chart, pt is alert and orientated x1-2 and forgetful. SW did go in to pt's room and provided Patient (and/or patient?s family) was provided a list of SNF providers including quality and resource use data and consistent with the patient?s preferred geographic region, medical needs, and insurance network. Pt's family preferred 1. [facility] 2. [facility]. [facility] is not able to accept pt, so referral was faxed to [facility]. Plan: SNF pending acceptance Echo Carr TIP CUTTER, DISTRIBUTION ANALYST
--- NOTE | 2020-11-11 17:12 | MRI_ITS ---
STUDY: MRA OF THE HEAD WITHOUT CONTRAST REASON FOR EXAM: Male, 80 years old. cva, frequent falls, weakness, confusion TECHNIQUE: 3-D [id number]-[id number] (TOF) imaging was performed with MIPs. The study was performed unenhanced. COMPARISON: None. FINDINGS: Normal bilateral petrous carotid arteries. Normal right cavernous carotid artery with a normal supraclinoid bifurcation. Normal left cavernous carotid artery with a normal supraclinoid bifurcation. Normal right A1 segments of the anterior cerebral artery. Normal left A1 segments of the anterior cerebral artery. Normal intact anterior communicating artery (ACOM). Normal bilateral A2 segments of the anterior cerebral arteries. Normal right M1 and M2 segments of the middle cerebral arteries, with a normal M1 bifurcation. Normal left M1 and M2 segments of the middle cerebral arteries, with a normal M1 bifurcation. Posterior communicating arteries are not visualized consistent with normal variant. Right vertebral is normal caliber. There is severe narrowing of the distal left vertebral Normal basilar artery with a normal basilar bifurcation. The visualized bilateral superior cerebellar (SCA) arteries are normal. Normal bilateral P1, P2 and visualized P3 segments of the posterior cerebral arteries. There is no demonstrated aneurysm of the [place]. There is no major vessel occlusion or hemodynamically significant stenosis. MRI/MRA Head ONLY without Contrast IMPRESSION: Severe narrowing of the distal left vertebral. No other significant atherosclerotic disease Electronically Signed: Fredy Perera MD at 22:48 EST , Service support ,
--- NOTE | 2020-11-11 17:12 | MRI_ITS ---
HISTORY: cva, frequent falls, weakness, confusion TECHNIQUE: Carotid MR angiogram was performed without contrast. 3D reconstructions were reviewed. NASCET criteria using the distal internal carotid arteries for comparison were used for evaluation of stenoses. COMPARISON: None FINDINGS: Number of images including paperwork: [phone] Evaluation significantly limited by motion artifact. RIGHT CAROTID ARTERIES: No occlusion, significant stenosis or dissection. LEFT CAROTID ARTERIES: No occlusion, significant stenosis or dissection of the common or internal carotid artery. External carotid artery origin not well demonstrated. VERTEBRAL ARTERIES: Origins not adequately demonstrated. Dominant right vertebral artery. Small caliber left vertebral artery. Left vertebral artery at the craniocervical junction not distinctly visualized. MRI/MRA Neck without Contrast IMPRESSION: No definite stenosis of either internal carotid artery within the limitations of the exam. Small caliber left vertebral artery not well visualized at the craniocervical junction. Consider enhanced CTA or MRA for further evaluation if clinically warranted. at 2341 Reported and signed by: Gloria Crockett MD Electronically Signed: Gloria Crockett MD at 23:41 EST Tel , Service support ,
--- NOTE | 2020-11-11 17:14 | ECHOCS_ITS ---
Reason For Study: TIA/CVA Procedure This was a 2D Doppler, Color Flow transthoracic echocardiogram. The study was technically difficult. Due to body habitus and breathing (panting). Contrast injection was performed. Exam performed portable in patient room. Left Ventricle Normal LV size. Left ventricular systolic function is normal. The estimated ejection fraction is 55 %. No evidence for diastolic dysfunction. No regional wall motion abnormalities noted. Right Ventricle Normal RV size. Normal systolic function. Atria The left atrium is mildly enlarged. Normal right atrium. No doppler evidence for ASD. Bubble contrast study negative for right to left interatrial shunt. Mitral Valve There is mild mitral annular calcification. Mild diffuse mitral valve thickening. Trivial mitral valve insufficiency. Tricuspid Valve Normal tricuspid valve. Trivial tricuspid valve insufficiency. Unable to estimate RV systolic pressure/pulmonary artery pressure due to technically difficult study. Aortic Valve Trisinus/trileaflet aortic valve. Moderate focal aortic valve calcification. Pulmonic Valve The pulmonic valve is not well visualized. Trivial pulmonic valve insufficiency. Great Vessels Normal sized aortic root. Calcified aortic root. Pericardium/Pleural No pericardial effusion. Medication 22 gauge I.V. with prn adaptor inserted into left arm. Performed a rapid injection of agitated mix of 9 cc saline and 1cc air to assess for atrial septal defect. Diluted definity 3.0ml given slow IV push to enhance endocardial definition. MMode/2D Measurements & Calculations LVIDd: 4.6 cm IVSd: 1.1 cm Ao root diam: 3.2 cm LVIDs: 2.7 cm LVPWd: 1.1 cm FS: 39.9 % LAV(MOD-bp): 63.3 ml LA A4 area: 20.6 cm2 LA dimension(2D): 3.4 cm LAV(MOD-bp) Indexed: 29.5 ml/m2 LAV(MOD-sp2): 61.2 ml LAV(MOD-sp4): 61.6 ml Time Measurements MV dec time: 0.18 sec Doppler Measurements & Calculations MV E max conrad: 81.8 cm/sec Lat Peak E' Conrad: 6.3 cm/sec Med Peak E' Conrad: 4.1 cm/sec MV A max conrad: 104.1 cm/sec E/E' lat: 12.9 E/E' med: 20.1 MV E/A: 0.79 Ao V2 max: 138.4 cm/sec LV V1 max: 88.5 cm/sec PA V2 max: 99.5 cm/sec Ao max P.7 mmHg LV V1 max P.2 mmHg Interpretation Summary The study was technically difficult. Contrast injection was performed. Left ventricular systolic function is normal. The estimated ejection fraction is 55 %. The left atrium is mildly enlarged. There is mild mitral annular calcification. Mild diffuse mitral valve thickening. Trivial mitral valve insufficiency. Trivial tricuspid valve insufficiency. Moderate focal aortic valve calcification. Trivial pulmonic valve insufficiency. Calcified aortic root. Unable to estimate RV systolic pressure/pulmonary artery pressure due to technically difficult study. No evidence for diastolic dysfunction. Ordering Physician: Sarah Cash Referring Physician: Hans Bran Chi Performed By: Cinthia Powell RDCS, RVT
--- NOTE | 2020-11-11 19:51 | NURSING ---
UPDATED DAUGHTER VIKTOR AT [phone]. PT IS IN PCU 111.
[2020-11-11] MEDS: Atorvastatin Calcium 40 MG Tablet PO (22:17)
[2020-11-12] VITALS (9 sets, daily range): BP systolic 146–159; BP diastolic 76–95; PULSE 63–70; RESP 18–20; TEMP 37.2–37.7; O2SAT 91–94; BMI 35.0
--- NOTE | 2020-11-12 01:50 | PCS.PANDOC ---
PANDEMIC DOCUMENTATION INITIATED: Date: 11/11/20 Time: 2030
[2020-11-12 06:33] LABS: Cholesterol 125 mg/dL (200); High Density Lipoprotein 26 mg/dL; Triglycerides 84 mg/dL; Very Low Density Lipoprotein 17 mg/dL (5-40)
--- NOTE | 2020-11-12 07:16 | TELEMED_ITS ---
[facility] Telemed has confirmed receipt of a request for visit. This document confirms receipt of the order initiating the consult. To find the results of the consultation, please view the patient's reports for the scanned Telemed Consult.
--- NOTE | 2020-11-12 08:57 | CASEMGMT ---
SW did not complete a PHQ 9 as patient has Dementia and is confused. Bertha LIZARRAGA MSW
[2020-11-12] MEDS: 0.9% Saline Lock 10 ML Syringe IV (09:26)
[2020-11-12] MEDS: Rivastigmine Tartrate 1.5 MG Capsule 3 MG PO (09:45)
[2020-11-12] MEDS: Memantine Hydrochloride 10 MG Tablet PO (09:45)
[2020-11-12] MEDS: Aspirin 81 MG TAB.CHEW PO (09:45)
[2020-11-12] MEDS: Carvedilol 25 MG Tablet PO (09:45)
[2020-11-12] MEDS: Enoxaparin 40 MG/0.4 ML Syringe SC (09:45)
[2020-11-12] MEDS: Tamsulosin HCl 0.4 MG Capsule PO (09:45)
--- NOTE | 2020-11-12 13:50 | TREXTCAR_ITS ---
- Diet 11/11/20 18:55 Diet: Cardiac - Heart Healthy Food consistency:: Regular Liquid Consistency:: Regular/Thin Is pt able to select menu?: Yes - Routine Orders/Code Status O2 Liters per Minute: 1-2 O2 Frequency: PRN Keep PO Greater than or Equal to (%): 94 Routine Lab Work: CBC - within 3 days, BMP - within 3 days Code Status: Full Code - Wound(s) right chest Wound Type: removal of infected pimple Rt knee Wound Type: Abrasion - Therapies Weight Bearing: Weight bearing as tolerated Physical Therapy: Eval and Treat Occupational Therapy: Eval and Treat Speech Therapy: Eval and Treat - Allergies/Procedures Done in Hospital Allergies/Adverse Reactions: Allergies Penicillins Adverse Reaction (Verified 11/09/20 20:29) Unknown Procedures: None - Type of Care/Length of Stay Estimated LOS: Convalescent Care Less Than 30 days Type of Care Needed: Skilled Rehab Potential: Good Prognosis: Good - Additional Orders/Day of Discharge Day of Discharge: 11/12/20 - Dietary and Speech Recommendations Speech Linguistic Eval Summary: Pt oriented to name and only. Pt believing that he was at his home. Pt reoriented to location and current date. Even with choice of three, pt unable to provide accurate location such as school vs hospital vs scientologist. Pt able to follow simple 1 step directions with repetition and verbal cues. Pt able to name 10/10 items in room during confrontation naming task. Pt able to name 4 animals in one minute. Pt unable to immediately repeat 3 words for memory assessment. Pt will require reinforcement on how to use call light for assistance. - Follow Up Care Primary Care Physician: Hans Bran Chi, MD [Primary Care Provider] - Please follow up with your Primary Care Physician in: within 2-4 weeks Please Follow Up With: Ciaran Edmondson MD When: in 2 weeks
--- NOTE | 2020-11-12 13:58 | DS.PCM_ITS ---
Discharge Date and Diagnosis - Problem List Patient Problems: Active and Suspected Problems (Last Reviewed 07/08/20 @ 10:35 by Lien LINDSEY, PA) Frequent falls (Acute) Failure to thrive in adult (Acute) Date of Admission: 11/09/20 Date of Discharge: 11/12/20 - Primary Discharge Diagnosis Acute Problems: Active Problems (Last Reviewed 07/08/20 @ 10:35 by Lien LINDSEY, PA) Acute stroke Debility/recurrent mechanical falls - Secondary Discharge Diagnosis Chronic Problems: Chronic Problems (Last Reviewed 07/08/20 @ 10:35 by Lien LINDSEY, PA) History of rectal cancer (Chronic) BPH (benign prostatic hyperplasia) (Chronic) History of CVA (cerebrovascular accident) (Chronic) LEÓN (obstructive sleep apnea) (Chronic) GERD (gastroesophageal reflux disease) (Chronic) Dementia (Chronic) Atherosclerosis of coronary artery without angina pectoris (Chronic) CABG x 4 MCKEON-LAD, SVG-D1, SVG-OM1 and SVG-PDA 10/12/18 Essential (primary) hypertension (Chronic) Hyperlipidemia (Chronic) Hospital Course and Treatment Imaging Results: Clinical Impression(s) from Imaging Studies Brain CT 11/09/20 20:16 IMPRESSION: 1. No acute findings. 2. Small chronic right parietal infarct. 3. Extensive microvascular ischemic changes. Atrophy. Electronically Signed: Alicia Miller MD at 21:56 EST Tel , Service support , Chest X-Ray 11/09/20 20:16 IMPRESSION: Normal x-ray examination of the chest. Electronically Signed: Alicia Miller MD at 22:05 EST Tel , Service support , Brain MRI 11/11/20 05:55 IMPRESSION: 1. Tiny acute infarct involving the left parietal lobe. 2. Moderate ventriculomegaly, generalized involutional changes of the brain, and sequela of severe microvascular disease. Electronically Signed: Tia Mayo MD at 14:31 EST , Service support , ADDENDUM: 11/11/20 1457 IMPRESSION: 1. Tiny acute infarct involving the left parietal lobe. 2. Moderate ventriculomegaly, generalized involutional changes of the brain, and sequela of severe microvascular disease. N.B. : Slime Burroughs RN, confirmed on 11/11/2020 14:50:13 (ET) that the healthcare facility has received the radiology report. Electronically Signed: Tia Mayo MD at 14:31 EST , Service support , Head MRA 11/11/20 17:12 IMPRESSION: Severe narrowing of the distal left vertebral. No other significant atherosclerotic disease Electronically Signed: Fredy Perera MD at 22:48 EST , Service support , Neck MRA 11/11/20 17:12 IMPRESSION: No definite stenosis of either internal carotid artery within the limitations of the exam. Small caliber left vertebral artery not well visualized at the craniocervical junction. Consider enhanced CTA or MRA for further evaluation if clinically warranted. at 2341 Reported and signed by: Gloria Crockett MD Electronically Signed: Gloria Crockett MD at 23:41 EST Tel , Service support , Tele-neurology Operations: None Procedures: None Summary of Care Provided: The patient is a 80 year old M with past medical history of polycythemia vera, history of rectal CA status post colon resection/colostomy, CAD status post CABG, dementia of unclear etiology who comes in with recurrent falls, fatigue, malaise and generalized weakness. Patient has been staying with his girlfriend, typically uses a walker. He was admitted after a fall, complain of generalized weakness, and was confused. Work-up in the ED was unremarkable, CT of the brain showed chronic right parietal infarct and extensive microvascular ischemic changes as well as atrophic. Chest x-ray was unremarkable. Patient was admitted to the Medr floor, PT and OT consults were requested. He was continued on his chronic cardiovascular medications. Patient is on aspirin and statin. Patient had an MRI that was done later and was suggestive of a tiny acute infarct involving the left parietal lobe. Patient was transferred to the telemetry floor on the stroke protocol. 2D echo showed an EF of 55%, no valvular lesions. MRA of the neck showed no definite stenosis. MRA of the head shows severe narrowing of the distal left cerebral artery. [facility] telemetry neurology was consulted and recommended addition of Plavix, aspirin, continuation of atorvastatin. Patient was seen by PT and OT and recommended for discharge for rehab. He was discharged to a SNF. Patient Problems: Active and Suspected Problems (Last Reviewed 07/08/20 @ 10:35 by Lien LINDSEY, PA) Frequent falls (Acute) Failure to thrive in adult (Acute) Subjective: On the day of discharge, patient was seen and examined. Denied any new complaints. Objective: Physical exam: General: Alert, Cooperative, No apparent distress, Confused HEENT: Atraumatic, PERRLA, EOMI, Normocephalic Oral: Dry Mucosa Neck: Supple, No JVD, Negative Carotid Bruits Lungs: Clear to auscultation, Normal air movement, No rhonchi, No wheeze, No rales Cardiovascular: Regular rate, Regular Rhythm, Normal S1, Normal S2, No murmurs Abdomen: Bowel Sounds Present, Soft, Non Tender Extremities: No edema, Capillary Refill Less than 3 Seconds Skin: No rashes, No breakdown Musculoskeletal: No Tenderness to Palpation of Joints or Extremities Lymphatic: No Cervical, Supraclavicular, or Inguinal Adenopathy Neurological: Cranial nerves II-XII grossly intact, Motor Exam 5/5 strength throughout, Sensory exam intact to light touch and pain Psych/Mental Status: Flat Affect - Physical Exam Vitals/I&O's: Vital Signs Temp Pulse Resp BP Pulse Ox 99.8 F H 70 18 154/95 H 92 11/12/20 09:45 11/12/20 09:45 11/12/20 09:45 11/12/20 09:45 11/12/20 09:45 Oxygen Delivery Method Room Air Weight: 101.5 kg Body Mass Index (BMI) 35.0 Intake and Output for Last 24 Hours 11/10/20 11/11/20 11/12/20 23:59 23:59 23:59 Intake Total 2489.58 / 2609.58 2370 / 2370 240 / 240 Output Total 50 / 50 100 / 100 Balance 2439.58 / 2559.58 2270 / 2270 240 / 240 Microbiology Past 72 Hours 11/10/20 04:55 Urine, Clean Catch Urine Culture - Final Mixed Gram Pos & Gram Neg Org 11/09/20 23:20 Mucosa - Nasopharyngeal SARS-CoV-2 Antigen (Rapid) - Final Laboratory Results 11/12/20 05:15: Triglycerides 84, Cholesterol 125, LDL Cholesterol 82, VLDL Cholesterol 17, HDL Cholesterol 26 L Current Medications Acetaminophen (Acetaminophen 325 Mg Tablet) 650 mg PO Q6H PRN PRN PRN Reason: Pain Score 1-10/Temp > 100.7 F Last Admin: 11/11/20 15:52 Dose: 650 mg Documented by: Al Hydroxide/Mg Hydroxide (Mag Hydrox/Al Hydrox/Simeth 30 Ml Udc) 30 ml PO Q6H PRN PRN PRN Reason: Gastric Burning Albuterol Sulfate (Albuterol 2.5 Mg/3 Ml Vial.Neb.) 2.5 mg INHALATION Q2H PRN PRN PRN Reason: Dyspnea, wheezing Aspirin (Aspirin 81 Mg Tab.Chew) 81 mg PO DAILY@0800 [facility] Last Admin: 11/12/20 09:45 Dose: 81 mg Documented by: Atorvastatin Calcium (Atorvastatin Calcium 40 Mg Tablet) 40 mg PO QHS [facility] Last Admin: 11/11/20 22:17 Dose: 40 mg Documented by: Carvedilol (Carvedilol 25 Mg Tablet) 25 mg PO BID [facility] Last Admin: 11/12/20 09:45 Dose: 25 mg Documented by: Clopidogrel Bisulfate (Clopidogrel Bisulfate 75 Mg Tablet) 75 mg PO DAILY [facility] Enoxaparin Sodium (Enoxaparin 40 Mg/0.4 Ml Syringe) 40 mg SC DAILY [facility] Last Admin: 11/12/20 09:45 Dose: 40 mg Documented by: Guaifenesin (Guaifenesin 10 Ml Udc (200mg/10ml)) 20 ml PO Q4H PRN PRN PRN Reason: COUGH Labetalol HCl (Labetalol (Prefilled) 20 Mg/4 Ml) 10 - 20 mg IV Q10M PRN PRN PRN Reason: to Maintain BP Goals Magnesium Hydroxide (Magnesium Hydroxide 30 Ml Udc) 30 ml PO DAILY PRN PRN PRN Reason: Constipation Melatonin (Melatonin 3 Mg Tablet) 3 mg PO QHS PRN PRN PRN Reason: INSOMNIA Memantine (Memantine Hydrochloride 10 Mg Tablet) 10 mg PO BID [facility] Last Admin: 11/12/20 09:45 Dose: 10 mg Documented by: Metoprolol Tartrate (Metoprolol Tartrate 5 Mg/5 Ml Vial) 5 mg IV Q6H PRN PRN PRN Reason: SBP > 160, use after hydralazine. Last Admin: 11/10/20 07:00 Dose: 5 mg Documented by: Nitroglycerin (Nitroglycerin (Inpatient Use) 0.4 Mg Tab.Subl) 0.4 mg SUBLINGUAL Q5M PRN PRN Reason: CARDIAC/CHEST PAIN Ondansetron HCl (Ondansetron 4 Mg/2 Ml Vial) 4 mg IV Q8H PRN PRN PRN Reason: NAUSEA/VOMITING Prochlorperazine Edisylate (Prochlorperazine 10 Mg/2 Ml Vial) 5 mg IV Q4H PRN PRN PRN Reason: Breakthrough nausea/vomiting Psyllium Hydrophilic Mucilloid (Psyllium 1 Packet) 1 packet PO DAILY PRN PRN PRN Reason: Constipation Rivastigmine Tartrate (Rivastigmine Tartrate 1.5 Mg Capsule) 3 mg PO BID [facility] Last Admin: 11/12/20 09:45 Dose: 3 mg Documented by: Senna/Docusate Sodium (Senna/Docusate Sodium 1 Tablet) 2 tablet PO BID PRN PRN PRN Reason: Constipation Sodium Chloride (0.9% Saline Lock 10 Ml Syringe) 10 - 40 ml IV UD PRN PRN Reason: SALINE FLUSH Last Admin: 11/12/20 09:26 Dose: 10 ml Documented by: Tamsulosin HCl (Tamsulosin Hcl 0.4 Mg Capsule) 0.4 mg PO BID [facility] Last Admin: 11/12/20 09:45 Dose: 0.4 mg Documented by: Throat Lozenges (Benzocaine/Menthol 1 Lozenge) 1 lozenge MUCOUS MEM Q2H PRN PRN PRN Reason: SORE THROAT Discharge Diet: Low fat/ Low Cholesterol Discharge Activity: Return to Normal Activity Home Medications: Medications to take at Discharge Aspirin [Aspirin, Baby] 81 mg PO DAILY@0800 12/24/14 Caleb Chow B.lactis [Probiotic] 1 ea PO DAILY 10/04/18 Atorvastatin Calcium [Lipitor] 40 mg PO QHS 12/26/18 Tamsulosin HCl [Flomax] 0.4 mg PO BID 12/26/18 Cholecalciferol (Vitamin D3) [Vitamin D3] 2,000 unit PO DAILY 07/08/20 Multivitamin with Minerals [Myvitalife] 1 ea PO DAILY 07/08/20 Ubidecarenone/Vit E/Vit E Mix [Co-Enzyme Q10 100 mg Softgel] 1 ea PO DAILY 07/08/20 Memantine HCl 10 mg PO BID 09/19/20 Rivastigmine Tartrate [Exelon] 3 mg PO BID 09/19/20 Acetaminophen [Tylenol Tablet] 650 mg PO Q6H PRN PRN tab 11/12/20 Amlodipine [Norvasc] 5 mg PO DAILY 30 Days #30 tab 11/12/20 Carvedilol [Coreg (Beta Anna)] 25 mg PO BID tab 11/12/20 Clopidogrel Bisulfate [Plavix] 75 mg PO DAILY tab 11/12/20 Enoxaparin [Lovenox] 40 mg SC DAILY syringe 11/12/20 Guaifenesin [Robitussin] 20 ml PO Q4H PRN PRN udc 11/12/20 Following Prescriptions Were Given to Patient: Amlodipine [Norvasc] 5 mg PO DAILY 30 Days #30 tab Primary Care Physician: Hans Bran Chi, MD [Primary Care Provider] - Please follow up with your Primary Care Physician in: within 2-4 weeks Please Follow Up With: Ciaran Edmondson MD When: in 2 weeks Disposition: [facility] facility Minutes spent on discharge:: 40 Patient Condition:: Stable Medical Necessity - Tobacco Use Smoking Status: Former smoker Tobacco Use: Non-smoker Meaningful Use Info Meaningful Use Diagnoses (Choose all that apply): None applicable Inpatient E&M: 18702 Disch Hosp
--- NOTE | 2020-11-12 14:10 | CASEMGMT ---
JIMMY received a message from Regina with [facility] and they can accept patient. JIMMY notified physician who will discharge patient today. SW called Regian with [facility] and left her a voice mail letting her know this information. Await orders. Bertha LIZARRAGA MSW
--- NOTE | 2020-11-12 14:29 | PHA.DC.MR ---
Pharmacy Service has performed discharge medication reconciliation for this patient. The patient's discharge medication list was reviewed for discrepancies and discrepancies were resolved. Home Medications Aspirin [Aspirin, Baby] 81 mg PO DAILY@0800 12/24/14 Caleb Chow B.lactis [Probiotic] 1 ea PO DAILY 10/04/18 Atorvastatin Calcium [Lipitor] 40 mg PO QHS 12/26/18 Tamsulosin HCl [Flomax] 0.4 mg PO BID 12/26/18 Cholecalciferol (Vitamin D3) [Vitamin D3] 2,000 unit PO DAILY 07/08/20 Multivitamin with Minerals [Myvitalife] 1 ea PO DAILY 07/08/20 Ubidecarenone/Vit E/Vit E Mix [Co-Enzyme Q10 100 mg Softgel] 1 ea PO DAILY 07/08/20 Memantine HCl 10 mg PO BID 09/19/20 Rivastigmine Tartrate [Exelon] 3 mg PO BID 09/19/20 Acetaminophen [Tylenol Tablet] 650 mg PO Q6H PRN PRN tab 11/12/20 Amlodipine [Norvasc] 5 mg PO DAILY 30 Days #30 tab 11/12/20 Carvedilol [Coreg (Beta Anna)] 25 mg PO BID tab 11/12/20 Clopidogrel Bisulfate [Plavix] 75 mg PO DAILY tab 11/12/20 Enoxaparin [Lovenox] 40 mg SC DAILY syringe 11/12/20 Guaifenesin [Robitussin] 20 ml PO Q4H PRN PRN udc 11/12/20
[2020-11-12] MEDS: Clopidogrel Bisulfate 75 MG Tablet PO (14:51)
--- NOTE | 2020-11-12 15:12 | CASEMGMT ---
JIMMY faxed orders to [facility] along with POA papers that were faxed to SW. JIMMY called [facility] and arranged transportation. They cannot roll picker patient until 7p via cot. JIMMY notified RN and [facility]. SW notified patient's daughter, Bertha, who is his Healthcare Power of Consulting Practice Manager. Plan: d/c to [facility] under skilled level of care on a convalescent stay. [facility] transported him via cot. Bertha LIZARRAGA MSW
[2020-11-12 15:31] LABS: Base Excess 2 mmol/L (-2 to +2); Bicarbonate 24.6 mmol/L (22-26); Blood Gas Specimen Type ART; FI02 21; PO2 102 mmHG (75-100); SITE R Radial; SO2 99 % (95-99); Total Carbon Dioxide 26 mmol/L; pCO2 30.3 mmHg (35-45); pH 7.52 (7.35-7.45)
--- NOTE | 2020-11-12 16:17 | NURSING ---
Called report to Fina UPTON at [facility]
== END 2020-11-12 19:10 | disposition skilled nursing facility (03) | DRG 66 ==
LOC: ED 22:22 → MS3 22:35 → PCU 11-12 09:28
PROVIDERS: Nurse Practitioner Family; Admitting Provider Family Medicine; Emergency Provider Student in an Organized Health Care Education/Training Program; PCP Family Medicine Geriatric Medicine; Visit Provider Internal Medicine
DX: I63.9 Cerebral infarction, unspecified (principal); F02.80 Dementia in other diseases classified elsewhere, unspecified severity, without behavioral disturbance, psychotic disturbance, mood disturbance, and anxiety; R53.1 Weakness; R29.703 NIHSS score 3; G30.9 Alzheimer's disease, unspecified; R53.81 Other malaise; R29.6 Repeated falls; N40.0 Benign prostatic hyperplasia without lower urinary tract symptoms; G47.33 Obstructive sleep apnea (adult) (pediatric); I10 Essential (primary) hypertension; K21.9 Gastro-esophageal reflux disease without esophagitis; I25.10 Atherosclerotic heart disease of native coronary artery without angina pectoris; I25.2 Old myocardial infarction; D45 Polycythemia vera; E78.00 Pure hypercholesterolemia, unspecified; R62.7 Adult failure to thrive; E66.9 Obesity, unspecified; Z68.35 Body mass index [BMI] 35.0-35.9, adult; Z95.1 Presence of aortocoronary bypass graft; Z93.3 Colostomy status; Z92.21 Personal history of antineoplastic chemotherapy; Z92.3 Personal history of irradiation; Z79.82 Long term (current) use of aspirin; Z79.899 Other long term (current) drug therapy; Z87.891 Personal history of nicotine dependence; Z85.048 Personal history of other malignant neoplasm of rectum, rectosigmoid junction, and anus; Z86.73 Personal history of transient ischemic attack (TIA), and cerebral infarction without residual deficits
CPT/HCPCS: 36415; 36600; 70450; 70544; 70547; 70551; 71045; 80048; 80053; 80061; 80076; 81001; 82550; 82803; 83735; 84439; 84443; 84484; 85025; 87086; 87088; 87426; 92523; 92610; 93005; 93306; 94762; 97110; 97112; 97163; 97165; 97535; 97802; 99251; 99285; J7030; J7040; P9612; Q9957; A4216; C8929; G0463

== ENCOUNTER 2020-11-17 01:32 | Inpatient (IN) | payer MEDICARE, OTHER, SELFPAY ==
[2020-11-12 00:05] VITALS: BMI 35.0
[2020-11-17] VITALS (14 sets, daily range): BP systolic 119–150; BP diastolic 56–78; PULSE 56–66; RESP 18–32; TEMP 36.5–37.6; O2SAT 87–96; BMI 36.6; BMI 34.6
--- NOTE | 2020-11-17 01:38 | EKG12_ITS ---
Test Reason : SOB Blood Pressure : / mmHG Vent. Rate : 058 BPM Atrial Rate : 058 BPM P-R Int : 160 ms QRS Dur : 082 ms QT Int : 436 ms P-R-T Axes : 240 065 001 degrees QTc Int : 428 ms Unusual P axis, possible ectopic atrial bradycardia Possible Inferior infarct , age undetermined Abnormal ECG Confirmed by ANAYA NAVA, RENETTA ([id number]), medical transcription editor MAURI SOTO ([id number]) on 11/19/2020 8:21:11 AM Referred By: DOMI Confirmed By:RENETTA JULIEN MD
--- NOTE | 2020-11-17 01:42 | ED.DCSUM_ITS ---
- ER Visit Summary Date of Service: 11/17/20 Chief Complaint: Shortness of breath History of Present Illness: The patient is a 80 M who presents from the [facility] with shortness of breath. Started earlier today. He apparently had a Covid test that was positive today as well. Shortness of breath is worse with exertion and better with rest. He has a cough is not productive of sputum. His temperature is 100 ?F with EMS. He is denying any chest pain. He has no history of any lung pathology. He is a former smoker. He is not on oxygen at the [facility]. They called EMS tonight because his respiratory rate was rising. Physical Examination: Vital signs reviewed. His pulse ox is 87% on room air. Respiratory rate currently is 32. HEENT exam unremarkable. Heart is regular rate and rhythm without murmurs. Lungs have rhonchorous breath sounds in the bases bilaterally. Abdomen is soft and nontender. Extremities reveal no edema. Skin exam normal. Neurologic exam normal. Test Results: EKG is normal sinus rhythm with rate of 58. There are nonspecific ST-T wave changes noted. Unchanged from previous EKG performed on November 09, 2020. Chest x-ray shows bilateral infiltrates, left greater than right. This appears consistent with coronavirus. White blood cell count normal. Chloride is 113, BUN 30, glucose 152. Troponin is 0.021. Emergency Department Course and Treatment: Patient was given a dose of IV Decadron as well as albuterol. He was placed on nasal cannula oxygen at 3 L and his oxygen saturations are now in the low 90s. Due to his hypoxia I feel he requires admission to the hospital. I spoke with the hospitalist for admission. Treatment Plan: [] Disposition: Admission Impression: COVID-19, hypoxia This note was generated with [employer] dictation software. It may contain incorrect words, spelling, and punctuation that were not noted in review of the chart prior to signing ED Disposition - Plan for ED Patient: Referrals: Hans Bran Chi, MD [Primary Care Provider] -
[2020-11-17 01:59] LABS: Absolute Lymphocyte Count 0.65 X10^3/uL (0.83-4.51); Absolute Neutrophil Count 6.1 X10^3/uL (2.0-7.7); Basophil# 0.01 X10^3/uL; Basophil% 0.1 % (0-1); Eosinophil# 0.02 X10^3/uL; Eosinophils% 0.3 % (0-5); Hematocrit 44.7 % (40-54); Hemoglobin 14.6 g/dL (13.0-16.5); Lymphocyte # 0.65 X10^3/ul (4.0); Mean Corp Hgb Conc 32.7 g/dL (32-36); Mean Corpuscular Hgb 34.4 pg (27.0-32.0); Mean Corpuscular Volume 105.4 fL (80-94); Mean Platelet Vol. 10.8 fl (6.2-12.0); Monocyte# 0.39 X10^3/uL; Monocyte% 5.4 % (0-10); NRBC Flagged by Analyzer 0 % (0-5); Neutrophil % 84.6 % (47-70); Platelet Count 167 K/mm3 (150-450); RBC Distribution Width CV 13.5 % (11.6-14.6); RBC Distribution Width SD 52.9 fl (35.1-43.9); Red Blood Count 4.24 M/mm3 (4.6-6.2); White Blood Count 7.2 K/mm3 (4.4-11.0)
[2020-11-17] MEDS: Albuterol 2.5 MG/3 ML VIAL.NEB. INHALATION (02:06)
[2020-11-17] MEDS: dexAMETHasone 10 MG/ML Vial 6 MG IV (02:16)
--- NOTE | 2020-11-17 02:18 | ED.RN ---
CRISIS TALKING TO PATIENT ON THE PHONE.
[2020-11-17 02:19] LABS: Anion Gap 5 (5-15); BUN 30 mg/dL (7-18); BUN/Creat Ratio 24.2 RATIO (10-20); Calcium,Total 8.3 mg/dL (8.5-10.1); Chloride 113 mmol/L (98-107); Creatinine, Serum 1.24 mg/dL (0.70-1.30); EST Glomerular Filtration Rate 60 mL/min (>60); Est Glom Filt Rate - Afr Amer 72 mL/min (>60); Estimated Creatinine Clearance 44.42 ml/min; Glucose 152 mg/dL (74-106); Potassium 3.5 mmol/L (3.5-5.1); Sodium Level 144 mmol/L (136-145)
--- NOTE | 2020-11-17 02:35 | RAD_ITS ---
diagnosed with covid earlier today, worsening sob. pt was not alert enough to take deep inspiration for xray. EXAMINATION/TECHNIQUE: XR Chest 1 View: COMPARISON: November 09, 2020 FINDINGS: LINES/DEVICES: None. LUNGS: Interval development of bilateral patchy infiltrates greatest in the left lung base. Probable small bilateral pleural effusions left greater than right No pneumothorax. MEDIASTINUM AND CARDIOVASCULAR STRUCTURES: Cardiac silhouette not enlarged. Central airways and mediastinal contour are unremarkable. BONES AND SOFT TISSUES: Midline sternotomy wires RAD/Chest 1 View (Portable) IMPRESSION: Interval development of bilateral patchy infiltrates greatest in the left lung base with probable small bilateral pleural effusions left greater than right at 0255 Reported and signed by: Ela Avila DO Electronically Signed: Ela Avila DO at 2:54 EST Tel , Service support ,
[2020-11-17 03:22] LABS: BNP,B-Type NATRIURETIC PEPTIDE 172.3 pg/mL (0-100)
--- NOTE | 2020-11-17 03:32 | PCM.HP.STD ---
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 (5) BPH (benign prostatic hyperplasia) Status: Chronic Qualifiers: Lower urinary tract symptom presence: unspecified whether lower urinary tract symptoms present Qualified Code(s): N40.0 - Benign prostatic hyperplasia without lower urinary tract symptoms (6) History of CVA (cerebrovascular accident) Status: Chronic (7) LEÓN (obstructive sleep apnea) Status: Chronic (8) GERD (gastroesophageal reflux disease) Status: Chronic Qualifiers: Esophagitis presence: esophagitis presence not specified Qualified Code(s): K21.9 - Gastro-esophageal reflux disease without esophagitis (9) Dementia Status: Chronic Qualifiers: Dementia type: unspecified type Dementia behavioral disturbance: without behavioral disturbance Qualified Code(s): F03.90 - Unspecified dementia without behavioral disturbance (10) Atherosclerosis of coronary artery without angina pectoris Status: Chronic Qualifiers: Coronary Disease-Associated Artery/Lesion type: unspecified vessel or lesion type Comment: CABG x 4 MCKEON-LAD, SVG-D1, SVG-OM1 and SVG-PDA 10/12/18 (11) H/O coronary artery bypass surgery Status: Chronic Comment: CABG x 4 MCKEON-LAD, SVG-D1, SVG-OM1 and SVG-PDA 10/12/18 (12) NSTEMI (non-ST elevated myocardial infarction) Status: Chronic (13) Essential (primary) hypertension Status: Chronic (14) Hyperlipidemia Status: Chronic Qualifiers: Hyperlipidemia type: pure hypercholesterolemia Qualified Code(s): E78.00 - Pure hypercholesterolemia, unspecified; E78.0 - Pure hypercholesterolemia History of Present Illness Date of Admission: 11/17/20 Chief Complaint: Shortness of breath History was taken from emergency department doctor as patient was not answering question at the time of examination probably secondary to feeling sleepy.. Per emergent department doctor patient answered most of his questions and occasionally gave one-word answers. The patient is a 80 year old M who lives at a assisted with a significant history of rectal cancer; obstructive sleep apnea; CAD status post CABG; dementia; hypertension; and hyperlipidemia who presents to the emergency department with worsening shortness of breath that started on the same day of presentation. Patient had positive Covid test on the same day of presentation . Because his respiratory rate increased into the 30s he was brought to the emergency department. Reportedly his temperature taken by paramedics was 100 Fahrenheit. At emergent department his initial oxygen saturation was 87%. Past Medical History Past Medical History (Chronic Problems): Chronic Problems (Last Reviewed 11/17/20 @ 05:[address] 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) CABG x 4 MCKEON-LAD, SVG-D1, SVG-OM1 and SVG-PDA 10/12/18 NSTEMI (non-ST elevated myocardial infarction) (Chronic) Essential (primary) hypertension (Chronic) Hyperlipidemia (Chronic) Medical History: Medical History (Last Reviewed 11/17/20 @ 05:[address] Ciaran Henry MD) Atherosclerosis of coronary artery without angina pectoris (Chronic) I25.10 CABG x 4 MCKEON-LAD, SVG-D1, SVG-OM1 and SVG-PDA 10/12/18 Essential (primary) hypertension (Chronic) I10 Hyperlipidemia (Chronic) E78.5 CVA (cerebral vascular accident) I63.9 Claudication I73.9 GERD (gastroesophageal reflux disease) K21.9 History of esophageal stricture Z87.19 Obesity E66.9 Obstructive sleep apnea G47.33 Polycythemia vera D45 Rectal cancer C20 Concussion S06.0X9A Allergies Penicillins Adverse Reaction (Verified 11/09/20 20:29) Unknown Home Medications: Ambulatory Orders Medication Instructions Recorded Aspirin [Aspirin, Baby] 81 mg PO DAILY@0800 12/24/14 L.acidoph,Paracasei, B.lactis 1 ea PO DAILY 10/04/18 [Probiotic] Atorvastatin Calcium [Lipitor] 40 mg PO QHS 12/26/18 Tamsulosin HCl [Flomax] 0.4 mg PO BID 12/26/18 Cholecalciferol (Vitamin D3) 2,000 unit PO DAILY 07/08/20 [Vitamin D3] Multivitamin with Minerals 1 ea PO DAILY 07/08/20 [Myvitalife] Ubidecarenone/Vit E/Vit E Mix 1 ea PO DAILY 07/08/20 [Co-Enzyme Q10 100 mg Softgel] Memantine HCl 10 mg PO BID 09/19/20 Rivastigmine Tartrate [Exelon] 3 mg PO BID 09/19/20 Acetaminophen [Tylenol Tablet] 650 mg PO Q6H PRN PRN tab 11/12/20 Amlodipine [Norvasc] 5 mg PO DAILY 30 Days #30 tab 11/12/20 Carvedilol [Coreg (Beta Anna)] 25 mg PO BID tab 11/12/20 Clopidogrel Bisulfate [Plavix] 75 mg PO DAILY tab 11/12/20 Guaifenesin [Robitussin] 20 ml PO Q4H PRN PRN udc 11/12/20 Surgical History: Surgical History (Last Reviewed 11/17/20 @ 05:[address] Ciaran Henry MD) H/O coronary artery bypass surgery (Chronic) Onset Date: 10/12/18 Z95.1 CABG x 4 MCKEON-LAD, SVG-D1, SVG-OM1 and SVG-PDA 10/12/18 History of colon resection Onset Date: 2014 Z98.890, Z90.49 History of colostomy History of left heart catheterization Onset Date: 10/05/18 Z98.890 Surgical History: coronary bypass surgery, - - History of colon resection with colostomy, CABG x4. Psychiatric History: Anxiety, Depression Smoking Status: Unknown if ever smoked - *Family History Maternal Family History: Family History (Last Reviewed 11/17/20 @ 05:[address] Ciaran Henry MD) Mother Breast cancer Father Heart disease Brother Myocardial infarction History Items: Cancer - Mother with history of breast cancer. Paternal Family History: Family History (Last Reviewed 11/17/20 @ 05:[address] Ciaran Henry MD) Mother Breast cancer Father Heart disease Brother Myocardial infarction History Items: High Cholesterol, Heart Disease, Hypertension Review of Systems Unable to obtain accurate/complete ROS d/t: Not providing information. ROS obtained from ED doc is as in hpi VTE Information - Inpt Only VTE Present on Admission: No VTE Mechan Device Prophylaxis: None VTE Pharm Prophylaxis ordered?: Yes Patient Problems: Active and Suspected Problems (Last Reviewed 11/17/20 @ 05:[address] Ciaran Henry MD) Acute respiratory distress syndrome (ARDS) due to 2019 novel coronavirus (Acute) - Physical Exam Vitals/I&O's: Vital Signs Temp Pulse Resp BP Pulse Ox 99.1 F 57 L 28 H 123/60 H 96 11/17/20 03:09 11/17/20 03:09 11/17/20 03:09 11/17/20 03:09 11/17/20 03:09 Oxygen Flow Rate (L/min) 3 Oxygen Delivery Method Nasal Cannula Weight: 106.1 kg Body Mass Index (BMI) 36.6 General: Lethargic, - HEENT: Atraumatic, Normocephalic Neck: Supple, Trachea Midline Lungs: Rales Cardiovascular: Regular rate, Normal S1, Normal S2, No murmurs Abdomen: Bowel Sounds Present, Soft, Non Tender, - - Colostomy in place Extremities: No edema, Capillary Refill Less than 3 Seconds Skin: Ulcer/ Wound - Right knee Musculoskeletal: No Tenderness to Palpation of Joints or Extremities Neurological: Cranial nerves II-XII grossly intact Psych/Mental Status: Normal Affect, Appropriate Laboratory Results 11/17/20 01:45: WBC 7.2, RBC 4.24 L, Hgb 14.6, Hct 44.7, MCV 105.4 H, MCH 34.4 H, MCHC 32.7, RDW Std Deviation 52.9 H, RDW Coeff of Kush 13.5, Plt Count 167, MPV 10.8, Immature Gran % (Auto) 0.600, Neut % (Auto) 84.6 H, Lymph % (Auto) 9.0 L, [place] % (Auto) 5.4, Eos % (Auto) 0.3, Baso % (Auto) 0.1, Absolute Neuts (auto) 6.1, Absolute Lymphs (auto) 0.65 L, Nucleated RBC % 0 11/17/20 01:45: Sodium 144, Potassium 3.5, Chloride 113 H, Carbon Dioxide 26.0, Anion Gap 5, BUN 30 H, Creatinine 1.24, Estim Creat Clear Calc 44.42, Est GFR (MDRD) Af Amer 72, Est GFR (MDRD) Non-Af 60, BUN/Creatinine Ratio 24.2 H, Glucose 152 H, Calcium 8.3 L, Troponin I 0.021 11/17/20 01:45: B-Natriuretic Peptide 172.3 H 11/17/20 01:45: Total Bilirubin Pending, Direct Bilirubin Pending, AST Pending, ALT Pending, Alkaline Phosphatase Pending, Total Protein Pending, Albumin Pending Assessment/Plan All Active Problems (Last Reviewed 11/17/20 @ 05:[address] Ciaran Henry MD) Acute respiratory distress syndrome (ARDS) due to 2019 novel coronavirus (Acute) Acute coronary syndrome (Resolved) Chest pain (Resolved) Dyspnea on exertion (Resolved) The patient is a 80 year old M who lives at a assisted with a significant history of rectal cancer; obstructive sleep apnea; CAD status post CABG; dementia; hypertension; and hyperlipidemia who presents emergency department with worsening shortness of breath and hypoxia in the setting of COVID-19 infection. Acute hypoxemic respiratory insufficiency secondary to SARS- COV 2 Oxygen saturation upon arrival to emergency department was 87% on room air requiring supplemental oxygenation. Oxygen supplementation continued. Positive coronavirus test outpatient. Impression of chest x-ray by radiologist: Interval development of bilateral patchy infiltrates greatest in the left lung base with probable small bilateral pleural effusions left greater than right.. Actual chest x-ray image was independently interpreted. Bilateral pulmonary infiltrates were noted. Bilateral pleural effusion with left greater than right noted. Actual chest x-ray image on 11/08/2020 was independently reviewed. Chest x-ray showed some mild pulmonary vascular congestion in the right perihilar area. Dimer and procalcitonin ordered. Liver biochemistry ordered with mild elevation of AST. Review of old records shows that his AST has been elevated since October this year (2020). BNP is unrevealing. Received dexamethasone IV at emergency department. Dexamethasone 6 mg p.o. daily ordered. Creatinine clearance is appropriate and liver biochemistry is appropriate to start remdesivir. Remdesivir ordered. Trend CBC and CMP. Tylenol for fever ordered. Mucinex as needed continued. CAD status post CABG Aspirin, Plavix and statin continued Hypertension Blood pressure is stable in regard to his age Amlodipine and Carvedilol continued. Trend blood pressure and adjust blood pressure medications. Dementia Rivastigmine and memantine continued BPH Flomax continued Vitamin D deficiency Vitamin D continued. Right knee ulcer. Nursing communication to irrigate and apply dry dressing. Obstructive sleep apnea Nursing communication to start patient on CPAP/BiPAP if uses same at home. Colostomy Consult to ostomy nurse. DVT prophylaxis Subcutaneous Lovenox Inpatient E&M: 84411 Init Hosp L3
[2020-11-17 03:42] LABS: AST(SGOT) 48 U/L (15-37); Alanine Aminotransfer ALT/SGPT 45 U/L (16-61); Albumin, Serum 2.2 g/dL (3.2-5.0); Alkaline Phosphatase 76 U/L (45-117); Bilirubin, Direct 0.12 mg/dL (0.00-0.30); Protein, Total 6.2 g/dL (6.4-8.2)
[2020-11-17] MEDS: Tamsulosin HCl 0.4 MG Capsule PO ×2 (08:09→20:52)
[2020-11-17] MEDS: dexAMETHasone 2 MG TABLET 6 MG PO (08:09)
[2020-11-17] MEDS: Rivastigmine Tartrate 1.5 MG Capsule 3 MG PO ×2 (08:09→20:51)
[2020-11-17] MEDS: Memantine Hydrochloride 10 MG Tablet PO ×2 (08:10→20:51)
[2020-11-17] MEDS: amLODIPine 5 MG Tablet PO (08:10)
[2020-11-17] MEDS: Carvedilol 25 MG Tablet PO ×2 (08:10→20:51)
[2020-11-17] MEDS: Multivitamins,Ther W-Minerals Tablet 1 TABLET PO (08:10)
[2020-11-17] MEDS: Aspirin 81 MG TAB.CHEW PO (08:10)
[2020-11-17] MEDS: Enoxaparin 30 MG/0.3 ML Syringe SC ×2 (08:10→20:50)
[2020-11-17] MEDS: Clopidogrel Bisulfate 75 MG Tablet PO (08:10)
[2020-11-17 08:50] LABS: D-Dimer Quantitative (DVT/PE) 4.08 FEU/ug/m (0.27-0.49)
--- NOTE | 2020-11-17 09:18 | CT_ITS ---
STUDY: CTA CHEST REASON FOR EXAM: Male, 80 years old. ARDS, COVID +, elevated D-dimer. Prior CABG x 4, dementia, CVA. RADIATION DOSAGE (If Supplied By Facility): CTDIvol = ( 12.65 ) mGy, DLP = ( 474.98 ) mGycm TECHNIQUE: The examination was performed with the intravenous administration of IV 100mL Isovue-370. Post-processing of the angiographic images was performed, with multiplanar reformation and 3D reconstruction. Individualized dose optimization techniques were used for this CT. COMPARISON: None. FINDINGS: Normal enhancement of the main pulmonary artery and right and left pulmonary arteries. There is limited enhancement of the bilateral peripheral pulmonary arteries. There is no demonstrated pulmonary embolism. There is atherosclerotic calcification of the aortic arch with tortuosity. There is no demonstrated aortic dissection. There are calcifications of the coronary arteries. Normal mediastinum. Normal hilar regions. Normal visualized trachea and bronchi. The lungs are well expanded. Multiple patchy regions of groundglass opacity and airspace disease throughout the bilateral lungs is present. Normal pleura. Normal chest wall structures. There are degenerative changes of thoracic spine. Normal visualized upper abdomen. CT/CTA Chest W/WO Contrast IMPRESSION: 1. No evidence of large pulmonary embolism or aortic dissection, the peripheral pulmonary arteries are limited due to bolus timing and motion artifact with punctate distal emboli not completely excluded. 2. Diffuse groundglass opacities in bilateral lung parenchyma consistent with patient''s known viral etiology of illness. Electronically Signed: Yifan Rollins DO at 11:14 EST , Service support ,
[2020-11-17 09:59] LABS: Procalcitonin 0.09 ng/mL (0.00-0.09)
[2020-11-17] MEDS: Acetaminophen 325 MG Tablet 650 MG PO (20:50)
[2020-11-17] MEDS: MELATONIN 3 MG TABLET PO (20:50)
[2020-11-17] MEDS: 0.9% Saline Lock 10 ML Syringe IV (20:51)
[2020-11-17] MEDS: Atorvastatin Calcium 40 MG Tablet PO (20:51)
[2020-11-18] VITALS (7 sets, daily range): BP systolic 119–142; BP diastolic 69–79; PULSE 58–66; RESP 18–20; TEMP 36.4–36.9; O2SAT 91–93
[2020-11-18 05:36] LABS: Absolute Lymphocyte Count 0.75 X10^3/uL (0.83-4.51); Absolute Neutrophil Count 8.7 X10^3/uL (2.0-7.7); Basophil# 0.02 X10^3/uL; Basophil% 0.2 % (0-1); Hematocrit 44.6 % (40-54); Hemoglobin 14.8 g/dL (13.0-16.5); Lymphocyte # 0.75 X10^3/ul (4.0); Lymphocyte % 7.6 % (19-41); Mean Corp Hgb Conc 33.2 g/dL (32-36); Mean Corpuscular Volume 102.5 fL (80-94); Mean Platelet Vol. 11.5 fl (6.2-12.0); Monocyte# 0.37 X10^3/uL; Monocyte% 3.7 % (0-10); NRBC Flagged by Analyzer 0 % (0-5); Neutrophil # 8.69 X10^3/uL (2.7-7.7); Neutrophil % 87.8 % (47-70); Platelet Count 184 K/mm3 (150-450); RBC Distribution Width CV 12.5 % (11.6-14.6); RBC Distribution Width SD 48.3 fl (35.1-43.9); Red Blood Count 4.35 M/mm3 (4.6-6.2); White Blood Count 9.9 K/mm3 (4.4-11.0)
[2020-11-18 06:00] LABS: ALB/GLOB Ratio 0.5 RATIO (0.9-2.4); AST(SGOT) 44 U/L (15-37); Alanine Aminotransfer ALT/SGPT 43 U/L (16-61); Albumin, Serum 1.9 g/dL (3.2-5.0); Alkaline Phosphatase 74 U/L (45-117); Anion Gap 6 (5-15); BUN 37 mg/dL (7-18); Calcium,Total 8.4 mg/dL (8.5-10.1); Chloride 110 mmol/L (98-107); EST Glomerular Filtration Rate 77 mL/min (>60); Est Glom Filt Rate - Afr Amer 93 mL/min (>60); Estimated Creatinine Clearance 55.08 ml/min; Glucose 228 mg/dL (74-106); Potassium 3.8 mmol/L (3.5-5.1); Protein, Total 5.9 g/dL (6.4-8.2); Sodium Level 139 mmol/L (136-145)
--- NOTE | 2020-11-18 07:31 | PN_ITS ---
Patient Problems: Active and Suspected Problems (Last Reviewed 11/17/20 @ 05:[address] Ciaran Henry MD) Acute respiratory distress syndrome (ARDS) due to 2019 novel coronavirus (Acute) Reason for Visit: Acute COVID-19 pneumonia Subjective: Patient is an 80-year-old gentleman admitted with progressive shortness of breath diagnosed with COVID-19 pneumonia Objective: GENERAL: cooperative HEENT: Atraumatic; EYES; Anicteric, Normal Conjunctiva NECK; supple, normal thyroid, RESPIRATORY: Diminished to auscultation CARDIOVASCULAR: Regular S1 S2, GI: soft, normoactive bowel sounds, : No Renal angle tenderness; EXTREMITIES: No edema, no clubbing, MUSCULOSKELETAL: no muscle waisting NEURO: Awake; no lateralizing signs. SKIN: No Rash PSYCH; Flat affect Vitals/I&O's: Vital Signs Temp Pulse Resp BP Pulse Ox 97.7 F L 60 18 137/79 H 92 11/18/20 03:06 11/18/20 03:06 11/18/20 03:06 11/18/20 03:06 11/18/20 03:06 Oxygen Flow Rate (L/min) 3 Oxygen Delivery Method Nasal Cannula Weight: 100.329 kg Body Mass Index (BMI) 34.6 Intake and Output for Last 24 Hours 11/16/20 11/17/20 11/18/20 23:59 23:59 23:59 Intake Total 560.25 / 560.25 700 / 700 Balance 560.25 / 560.25 700 / 700 Laboratory Results 11/17/20 08:00: D-Dimer Quant (PE/DVT) 4.08 H* 11/17/20 08:00: Procalcitonin 0.09 11/18/20 05:06: WBC 9.9, RBC 4.35 L, Hgb 14.8, Hct 44.6, MCV 102.5 H, MCH 34.0 H , MCHC 33.2, RDW Std Deviation 48.3 H, RDW Coeff of Kush 12.5, Plt Count 184, MPV 11.5, Immature Gran % (Auto) 0.700, Neut % (Auto) 87.8 H, Lymph % (Auto) 7.6 L, [place] % (Auto) 3.7, Eos % (Auto) 0.0, Baso % (Auto) 0.2, Absolute Neuts (auto) 8.7 H, Absolute Lymphs (auto) 0.75 L, Nucleated RBC % 0 11/18/20 05:06: Sodium 139, Potassium 3.8, Chloride 110 H, Carbon Dioxide 23.0, Anion Gap 6, BUN 37 H, Creatinine 1.00, Estim Creat Clear Calc 55.08, Est GFR (MDRD) Af Amer 93, Est GFR (MDRD) Non-Af 77, BUN/Creatinine Ratio 37.0 H, Glucose 228 H, Calcium 8.4 L, Total Bilirubin 0.20, AST 44 H, ALT 43, Alkaline Phosphatase 74, Total Protein 5.9 L, Albumin 1.9 L, Globulin 4.0, Albumin/Globulin Ratio 0.5 L Current Medications Acetaminophen (Acetaminophen 325 Mg Tablet) 650 mg PO Q6H PRN PRN PRN Reason: Pain Score 1-10/Temp > 100.7 F Last Admin: 11/17/20 20:50 Dose: 650 mg Documented by: Albuterol Sulfate (Albuterol Sulfate 18 Gm Inhaler (200 Puffs)) 2 puff IH Q4H PRN PRN PRN Reason: SOB/Wheezing Amlodipine Besylate (Amlodipine 5 Mg Tablet) 5 mg PO DAILY [facility] Last Admin: 11/17/20 08:10 Dose: 5 mg Documented by: Aspirin (Aspirin 81 Mg Tab.Chew) 81 mg PO DAILY [facility] Last Admin: 11/17/20 08:10 Dose: 81 mg Documented by: Atorvastatin Calcium (Atorvastatin Calcium 40 Mg Tablet) 40 mg PO QHS [facility] Last Admin: 11/17/20 20:51 Dose: 40 mg Documented by: Carvedilol (Carvedilol 25 Mg Tablet) 25 mg PO BID [facility] Last Admin: 11/17/20 20:51 Dose: 25 mg Documented by: Cholecalciferol (Cholecalciferol (Vit D3) 1,000 Unit (25mcg)) 2,000 unit PO DAILY [facility] Last Admin: 11/17/20 08:09 Dose: 2,000 unit Documented by: Clopidogrel Bisulfate (Clopidogrel Bisulfate 75 Mg Tablet) 75 mg PO DAILY [facility] Last Admin: 11/17/20 08:10 Dose: 75 mg Documented by: Dexamethasone (Dexamethasone 2 Mg Tablet) 6 mg PO DAILY [facility] Last Admin: 11/17/20 08:09 Dose: 6 mg Documented by: Enoxaparin Sodium (Enoxaparin 30 Mg/0.3 Ml Syringe) 30 mg SC BID [facility] Last Admin: 11/17/20 20:50 Dose: 30 mg Documented by: Guaifenesin (Guaifenesin 10 Ml Udc (200mg/10ml)) 20 ml PO Q4H PRN PRN PRN Reason: COUGH Sodium Chloride () 250 mls @ 15 mls/hr IV .[id number] PRN PRN Reason: Saline Flush Last Infusion: 11/17/20 22:52 Dose: 15 mls/hr Documented by: Sodium Chloride () 250 mls @ 15 mls/hr IV .[id number] PRN PRN Reason: Additional IVPB Infusion Remdesivir 100 mg/ Sodium (Chloride) 250 mls @ 125 mls/hr IV DAILY@2200 [facility] Stop: 11/20/20 23:59 Last Infusion: 11/17/20 22:52 Dose: Infused Documented by: Lactobacillus Acidophilus (Lactobacillus Acidophilus) 1 tablet PO DAILY [facility] Last Admin: 11/17/20 08:10 Dose: 1 tablet Documented by: Melatonin (Melatonin 3 Mg Tablet) 3 mg PO QHS PRN PRN PRN Reason: INSOMNIA Last Admin: 11/17/20 20:50 Dose: 3 mg Documented by: Memantine (Memantine Hydrochloride 10 Mg Tablet) 10 mg PO BID [facility] Last Admin: 11/17/20 20:51 Dose: 10 mg Documented by: Miscellaneous Information (Inhaler, Assist Devices 1 Each Spacer) 1 each INHALATION PRN PRN PRN Reason: WITH ALBUTEROL INHALER Multivitamins/Minerals (Multivitamins,Ther W-Minerals Tablet) 1 tablet PO DAILY [facility] Last Admin: 11/17/20 08:10 Dose: 1 tablet Documented by: Ondansetron HCl (Ondansetron 4 Mg/2 Ml Vial) 4 mg IV Q8H PRN PRN PRN Reason: NAUSEA/VOMITING Rivastigmine Tartrate (Rivastigmine Tartrate 1.5 Mg Capsule) 3 mg PO BID [facility] Last Admin: 11/17/20 20:51 Dose: 3 mg Documented by: Senna/Docusate Sodium (Senna/Docusate Sodium 1 Tablet) 2 tablet PO BID PRN PRN PRN Reason: Constipation Sodium Chloride (0.9% Saline Lock 10 Ml Syringe) 10 - 40 ml IV UD PRN PRN Reason: SALINE FLUSH Last Admin: 11/17/20 20:51 Dose: 10 ml Documented by: Tamsulosin HCl (Tamsulosin Hcl 0.4 Mg Capsule) 0.4 mg PO BID [facility] Last Admin: 11/17/20 20:52 Dose: 0.4 mg Documented by: Medical Necessity - Tobacco Use Smoking Status: Unknown if ever smoked Assessment/Plan All Active Problems (Last Reviewed 11/17/20 @ 05:[address] Ciaran Henry MD) Acute respiratory distress syndrome (ARDS) due to 2019 novel coronavirus (Acute) Acute coronary syndrome (Resolved) Chest pain (Resolved) Dyspnea on exertion (Resolved) Patient is an 80-year-old gentleman admitted with progressive shortness of breath diagnosed with COVID-19 pneumonia 1. Acute hypoxic respiratory sufficiency ?Secondary to acute COVID-19 pneumonia. Admitted to regular nursing floor where patient is being managed with supplemental oxygen 2. COVID-19 pneumonia ?Admitted to regular nursing floor started on remdesivir as well as Decadron in addition to supplemental oxygen as discussed above consultation placed to infectious disease 3. Coronary artery disease -status post CABG 4. Hypertension - Blood pressure controlled, home medications continued with dose adjustment as needed 5. Dementia ?Patient is on rivastigmine as well as memantine 6. Dyslipidemia -Patient is on statin therapy, continued at home dose 7. Obstructive sleep apnea ?PAP therapy at bedtime 8. BPH ?Patient is on tamsulosin 9. DVT prophylaxis ?Enoxaparin Inpatient E&M: [id number] [facility] Hosp L3
[2020-11-18] MEDS: Aspirin 81 MG TAB.CHEW PO (08:25)
[2020-11-18] MEDS: amLODIPine 5 MG Tablet PO (08:25)
[2020-11-18] MEDS: Memantine Hydrochloride 10 MG Tablet PO ×2 (08:25→21:13)
[2020-11-18] MEDS: Clopidogrel Bisulfate 75 MG Tablet PO (08:25)
[2020-11-18] MEDS: Carvedilol 25 MG Tablet PO ×2 (08:26→21:12)
[2020-11-18] MEDS: Multivitamins,Ther W-Minerals Tablet 1 TABLET PO (08:26)
[2020-11-18] MEDS: Rivastigmine Tartrate 1.5 MG Capsule 3 MG PO ×2 (08:26→21:12)
[2020-11-18] MEDS: Tamsulosin HCl 0.4 MG Capsule PO ×2 (08:26→21:13)
[2020-11-18] MEDS: dexAMETHasone 2 MG TABLET 6 MG PO (08:26)
[2020-11-18] MEDS: Enoxaparin 30 MG/0.3 ML Syringe SC ×2 (08:26→21:11)
--- NOTE | 2020-11-18 08:59 | CASEMGMT ---
Addendum entered by Dory Hernandez 11/18/20 11:54: SW received an email from Regina at [facility], she will fax over the COVID results once she has them, or will have the [employer] fax them over(pt was positive for COVID at [facility] and SW asked her to send over the results). SW emailed back and asked her to please get in touch w/pt's daughter if she has not done so already, as daughter had questions regarding whether or not they would consider taking pt back since she was going to pay the bed hold. SW will continue to wait to hear back from pt' s daughter, will call her shortly if SW has not heard back from daughter, regarding other group home options for pt. JULIO Ramirez Addendum entered by Dory Hernandez 11/18/20 10:59: As per physician, pt is ready for discharge today. Regina from [facility] called SW back and stated that pt does not have a bed hold, daughter did not send back paperwork, and with him now having COVID they are not going to take pt back. JIMMY called daughter/POA Bertha June, explained that [facility] is not going to take pt back for the reasons named above. Bertha states she just got all the paperwork late and was going to fax it in today, states that she did sign the bedhold form. SW asked Bertha to call Regina directly to speak w/her, though it seems that [facility] still is not going to take the pt back. SW asked daughter for email to send her a list of nursing homes accepting COVID pts, so in the event [facility] stays with not taking pt back she can pick a new place for JIMMY to send a referral. Daughter gave SW email, and will call this SW back once she speaks with Regina at [facility]. SW explained the Medicare star ratings are on the list and will include the Medicare website address in email so she can look at the ratings right on the website as well if needed. Daughter states understanding. SW emailed daughter list of local nursing homes taking COVID patients with the star ratings, and included the Medicare website address in the email also. SW now waiting for a call back from daughter. JULIO Ramirez Original Note: JIMMY reviewed chart, pt here from [facility]. Pt was discharged there on 11/12/20. JIMMY faxed updates to Regina at [facility], spoke w/her on the phone. Pt tested positive for COVID at [facility]. Regina is not certain if they will take pt back given that he now has COVID, she will let this SW know. JIMMY will continue to follow. JULIO Ramirez
--- NOTE | 2020-11-18 11:50 | NURSING ---
changed colostomy appliance. peristomal skin is intact. stoma is well budded and pink. cleansed skin with warm water. pat dry. applied a new 2 piece Rema appliance with a small amount of stoma paste. pt tolerated well.
--- NOTE | 2020-11-18 13:17 | CASEMGMT ---
JIMMY spoke joe/Regina at [facility], confirming again that they will not take pt back. She will bring pt's belongings to wherever he goes however after they have been cleaned, as pt's other daughter who is local has a broken foot and cannot drive. Pt's daughter Bertha then called this JIMMY. She did not receive JIMMY email but did go on the Medicare website and would like [facility], [facility], or [place]. JIMMY explained that due to COVID [facility] may be the only place out of this list who would take pt. This is daughter's first choice, so JIMMY explained will start with this. JIMMY faxed referral to [facility], called to let them know referral is being faxed and pt is ready today. JIMMY spoke joe/[facility], she will call SW back once she reviews the referral. JIMMY will continue to follow. JULIO Ramirez
--- NOTE | 2020-11-18 14:00 | CASEMGMT ---
Addendum entered by Dory Hernandez 11/18/20 14:48: SW spoke w/Regina again from [facility]. She is not sure if they have colostomy supplies for pt or not, nobody has been able to check for her. SW spoke w/Elmira again at [facility], asked her to please order the supplies for pt. She will do so and it will likely be there by the end of the week. Plan: [facility] tomorrow. JULIO Ramirez Original Note: SW spoke w/Elmira at [facility], they can take pt when ready. She asked about colostomy supplies, SW will find out from [facility] if they have any supplies they are bringing over. SW called Regina at [facility], message left inquiring about colostomy supplies. SW waiting for a call back. SW spoke w/physician via text, pt now ready for discharge tomorrow. SW called Elmira at [facility] and let her know we are looking at tomorrow for discharge, and SW waiting to hear back from Regina in regard to colostomy supplies. Elmira states they can order but it will take a little while for the supplies to get there. JIMMY called daughter to let her know that [facility] can take pt, plan will be for discharge tomorrow to [facility]. She is not sure if pt still has any colostomy supplies at the facility. Daughter not sure. Pt's friend Elma had brought in the supplies to [facility], but she is now quarantined so cannot bring the supplies to [facility]. Pt's other daughter who is local has a broken foot so also cannot go to the facility at this time. JIMMY will continue to follow, plan for [facility] tomorrow, just waiting now to hear from [facility] in regard to colostomy supplies. JULIO Ramirez
--- NOTE | 2020-11-18 14:14 | CON.PCM_ITS ---
Problem List (1) COVID-19 Status: Acute Reason for Consult: covid Consulted by: Dr. Quiñonez History of Present Illness: The patient is a 80 year old M with h/o dementia, presented with hypoxia and covid (+) test from [facility]. Reports some change in tastes/smell, denies cough, fever, n/v/d, aches. Admitted, started on dex and remdesivir. Feeling ok. Full ROS performed and neg except as noted above. - Medical History Past Medical History (Chronic Problems): Chronic Problems (Last Reviewed 11/17/20 @ 05:[address] 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) CABG x 4 MCKEON-LAD, SVG-D1, SVG-OM1 and SVG-PDA 10/12/18 NSTEMI (non-ST elevated myocardial infarction) (Chronic) Essential (primary) hypertension (Chronic) Hyperlipidemia (Chronic) Allergies/Adverse Reactions: Allergies Penicillins Adverse Reaction (Verified 11/09/20 20:29) Unknown Home Medications: Ambulatory Orders Medication Instructions Recorded Aspirin [Aspirin, Baby] 81 mg PO DAILY@0800 12/24/14 L.acidoph,Paracasei, B.lactis 1 ea PO DAILY 10/04/18 [Probiotic] Atorvastatin Calcium [Lipitor] 40 mg PO QHS 12/26/18 Tamsulosin HCl [Flomax] 0.4 mg PO BID 12/26/18 Cholecalciferol (Vitamin D3) 2,000 unit PO DAILY 07/08/20 [Vitamin D3] Multivitamin with Minerals 1 ea PO DAILY 07/08/20 [Myvitalife] Ubidecarenone/Vit E/Vit E Mix 1 ea PO DAILY 07/08/20 [Co-Enzyme Q10 100 mg Softgel] Memantine HCl 10 mg PO BID 09/19/20 Rivastigmine Tartrate [Exelon] 3 mg PO BID 09/19/20 Acetaminophen [Tylenol Tablet] 650 mg PO Q6H PRN PRN tab 11/12/20 Amlodipine [Norvasc] 5 mg PO DAILY 30 Days #30 tab 11/12/20 Carvedilol [Coreg (Beta Anna)] 25 mg PO BID tab 11/12/20 Clopidogrel Bisulfate [Plavix] 75 mg PO DAILY tab 11/12/20 Guaifenesin [Robitussin] 20 ml PO Q4H PRN PRN udc 11/12/20 - Social History Lives: in a retirement Vital Signs Temp Pulse Resp BP Pulse Ox 97.6 F L 58 L 18 128/72 H 93 11/18/20 10:20 11/18/20 10:20 11/18/20 10:20 11/18/20 10:20 11/18/20 13:44 Oxygen Flow Rate (L/min) 3 Oxygen Delivery Method Nasal Cannula Weight: 100.329 kg Body Mass Index (BMI) 34.6 Laboratory Tests Past 24 Hrs 11/18/20 11/18/20 05:06 05:06 WBC 9.9 RBC 4.35 L Hgb 14.8 Hct 44.6 MCV 102.5 H MCH 34.0 H MCHC 33.2 RDW Std Deviation 48.3 H RDW Coeff of Kush 12.5 Plt Count 184 MPV 11.5 Immature Gran % (Auto) 0.700 Neut % (Auto) 87.8 H Lymph % (Auto) 7.6 L Forrest % (Auto) 3.7 Eos % (Auto) 0.0 Baso % (Auto) 0.2 Absolute Neuts (auto) 8.7 H Absolute Lymphs (auto) 0.75 L Nucleated RBC % 0 Sodium 139 Potassium 3.8 Chloride 110 H Carbon Dioxide 23.0 Anion Gap 6 BUN 37 H Creatinine 1.00 Estim Creat Clear Calc 55.08 Est GFR (MDRD) Af Amer 93 Est GFR (MDRD) Non-Af 77 BUN/Creatinine Ratio 37.0 H Glucose 228 H Calcium 8.4 L Total Bilirubin 0.20 AST 44 H ALT 43 Alkaline Phosphatase 74 Total Protein 5.9 L Albumin 1.9 L Globulin 4.0 Albumin/Globulin Ratio 0.5 L - Other Studies Radiology: [] reviewed Other Studies: [] Route of nutrition/ use of supplements: [] Nutritional Intake: [] IV Site: [] Jovel Catheter: [] - Physical Exam General: Alert, Cooperative, No apparent distress, - - oriented x2 HEENT: Atraumatic, PERRLA, EOMI Neck: Supple, No Nodes Lungs: Diminished Cardiovascular: Regular rate, Regular Rhythm Abdomen: Soft, Non Tender, Non-Distended Extremities: No edema Skin: No rashes IV Site: Peripheral, without redness Musculoskeletal: No Tenderness to Palpation of Joints or Extremities Neurological: Cranial nerves II-XII grossly intact - Assessment/Plan Antibiotics: [] Assessment/Plan: [] Active and Suspected Problems (Last Reviewed 11/17/20 @ 05:[address] Ciaran Henry MD) Acute respiratory distress syndrome (ARDS) due to 2019 novel coronavirus (Acute) covid with hypoxia - unable to provide much history. Cont dex, remdesivir, lovenox 30mg bid. CT neg for PE. D-dimer 4.1. Plan on 20 days of quarantine from 11/17. Will follow, thank you
--- NOTE | 2020-11-18 14:18 | CASEMGMT ---
WON CM Readmission Note; Previous admission 11/10/20 through 11/12/20 Diagnosis: weakness, debility DC Disposition: SNF Current admission Diagnosis: Covid 19 COVID TEST: 11/16/20 @ [facility] jail. Patient was readmitted due to respiratory issues including shortness of breath related to covid-19. Currently on 3L NC. Patient will again need SNF on discharge. SW working with dc planning to SNF. Karuna PANDA RN ACM
[2020-11-18] MEDS: Menthol/Lanolin/Calamine/Znox 113 GM Tube 1 APPLIC TOPICAL (21:08)
[2020-11-18] MEDS: 0.9% Saline Lock 10 ML Syringe IV (21:11)
[2020-11-18] MEDS: Atorvastatin Calcium 40 MG Tablet PO (21:12)
[2020-11-19] VITALS (8 sets, daily range): BP systolic 141–168; BP diastolic 60–92; PULSE 60–64; RESP 18–26; TEMP 36.4–36.7; O2SAT 90–93
[2020-11-19] MEDS: 0.9% Saline Lock 10 ML Syringe IV ×2 (01:11→21:33)
[2020-11-19 05:48] LABS: Absolute Lymphocyte Count 0.58 X10^3/uL (0.83-4.51); Absolute Neutrophil Count 11.9 X10^3/uL (2.0-7.7); Basophil# 0.02 X10^3/uL; Basophil% 0.2 % (0-1); Differential Indicated SCAN CRITERIA MET; Hemoglobin 15.2 g/dL (13.0-16.5); Lymphocyte # 0.58 X10^3/ul (4.0); Lymphocyte % 4.4 % (19-41); Mean Corp Hgb Conc 34.5 g/dL (32-36); Mean Corpuscular Hgb 34.4 pg (27.0-32.0); Mean Corpuscular Volume 99.5 fL (80-94); Mean Platelet Vol. 11.4 fl (6.2-12.0); Monocyte# 0.48 X10^3/uL; Monocyte% 3.7 % (0-10); NRBC Flagged by Analyzer 0 % (0-5); Neutrophil # 11.92 X10^3/uL (2.7-7.7); Neutrophil % 90.7 % (47-70); POSITIVE DIFFERENTIAL YES; Platelet Count 223 K/mm3 (150-450); RBC Distribution Width CV 12.3 % (11.6-14.6); RBC Distribution Width SD 46.1 fl (35.1-43.9); Red Blood Count 4.42 M/mm3 (4.6-6.2); White Blood Count 13.1 K/mm3 (4.4-11.0)
[2020-11-19 06:13] LABS: ALB/GLOB Ratio 0.5 RATIO (0.9-2.4); AST(SGOT) 65 U/L (15-37); Alanine Aminotransfer ALT/SGPT 80 U/L (16-61); Alkaline Phosphatase 75 U/L (45-117); Anion Gap 7 (5-15); BUN 33 mg/dL (7-18); BUN/Creat Ratio 34.7 RATIO (10-20); Calcium,Total 8.2 mg/dL (8.5-10.1); Chloride 109 mmol/L (98-107); Creatinine, Serum 0.95 mg/dL (0.70-1.30); EST Glomerular Filtration Rate 81 mL/min (>60); Est Glom Filt Rate - Afr Amer 98 mL/min (>60); Estimated Creatinine Clearance 57.98 ml/min; Globulin 3.8 g/dL (2.2-4.2); Glucose 232 mg/dL (74-106); Magnesium 1.9 mg/dL (1.6-2.6); Potassium 3.6 mmol/L (3.5-5.1); Protein, Total 5.8 g/dL (6.4-8.2); Sodium Level 140 mmol/L (136-145)
--- NOTE | 2020-11-19 07:19 | PN_ITS ---
Patient Problems: Active and Suspected Problems (Last Reviewed 11/17/20 @ 05:[address] Ciaran Henry MD) Acute respiratory distress syndrome (ARDS) due to 2019 novel coronavirus (Acute) COVID-19 (Acute) Reason for Visit: Acute COVID-19 pneumonia Subjective: Patient is an 80-year-old gentleman admitted with progressive shortness of breath diagnosed with COVID-19 pneumonia 11/19/2020; patient oxygen requirement increasing currently saturating 90% on 4 L Objective: GENERAL: cooperative HEENT: Atraumatic; EYES; Anicteric, Normal Conjunctiva NECK; supple, normal thyroid, RESPIRATORY: Diminished to auscultation CARDIOVASCULAR: Regular S1 S2, GI: soft, normoactive bowel sounds, : No Renal angle tenderness; EXTREMITIES: No edema, no clubbing, MUSCULOSKELETAL: no muscle waisting NEURO: Awake; no lateralizing signs. SKIN: No Rash PSYCH; Flat affect Vitals/I&O's: Vital Signs Temp Pulse Resp BP Pulse Ox 97.5 F L 62 20 H 147/79 H 91 11/19/20 03:30 11/19/20 06:05 11/19/20 03:33 11/19/20 03:30 11/19/20 06:05 Oxygen Flow Rate (L/min) 4 Oxygen Delivery Method Nasal Cannula Weight: 100.329 kg Body Mass Index (BMI) 34.6 Intake and Output for Last 24 Hours 11/17/20 11/18/20 11/19/20 23:59 23:59 23:59 Intake Total 560.25 / 560.25 1492 / 1492 Output Total 250 / 250 Balance 560.25 / 560.25 1492 / 1342 -250 / -250 Laboratory Results 11/19/20 05:25: WBC 13.1 H, RBC 4.42 L, Hgb 15.2, Hct 44.0, MCV 99.5 H, MCH 34.4 H, MCHC 34.5, RDW Std Deviation 46.1 H, RDW Coeff of Kush 12.3, Plt Count 223, MPV 11.4, Immature Gran % (Auto) 1.000 H, Neut % (Auto) 90.7 H, Lymph % (Auto) 4.4 L, [place] % (Auto) 3.7, Eos % (Auto) 0.0, Baso % (Auto) 0.2, Absolute Neuts (auto) 11.9 H, Absolute Lymphs (auto) 0.58 L, Nucleated RBC % 0 11/19/20 05:25: Sodium 140, Potassium 3.6, Chloride 109 H, Carbon Dioxide 24.0, Anion Gap 7, BUN 33 H, Creatinine 0.95, Estim Creat Clear Calc 57.98, Est GFR (MDRD) Af Amer 98, Est GFR (MDRD) Non-Af 81, BUN/Creatinine Ratio 34.7 H, Glucose 232 H, Calcium 8.2 L, Magnesium 1.9, Total Bilirubin 0.30, AST 65 H, ALT 80 H, Alkaline Phosphatase 75, Total Protein 5.8 L, Albumin 2.0 L, Globulin 3.8, Albumin/Globulin Ratio 0.5 L Current Medications Acetaminophen (Acetaminophen 325 Mg Tablet) 650 mg PO Q6H PRN PRN PRN Reason: Pain Score 1-10/Temp > 100.7 F Last Admin: 11/17/20 20:50 Dose: 650 mg Documented by: Albuterol Sulfate (Albuterol Sulfate 18 Gm Inhaler (200 Puffs)) 2 puff IH Q4H PRN PRN PRN Reason: SOB/Wheezing Amlodipine Besylate (Amlodipine 5 Mg Tablet) 5 mg PO DAILY [facility] Last Admin: 11/18/20 08:25 Dose: 5 mg Documented by: Aspirin (Aspirin 81 Mg Tab.Chew) 81 mg PO DAILY [facility] Last Admin: 11/18/20 08:25 Dose: 81 mg Documented by: Atorvastatin Calcium (Atorvastatin Calcium 40 Mg Tablet) 40 mg PO QHS [facility] Last Admin: 11/18/20 21:12 Dose: 40 mg Documented by: Calamine/Phenol (Menthol/Lanolin/Calamine/Znox 113 Gm Tube) 1 applic TOPICAL BID [facility]; Protocol Last Admin: 11/18/20 21:08 Dose: 1 applicatio Documented by: Carvedilol (Carvedilol 25 Mg Tablet) 25 mg PO BID [facility] Last Admin: 11/18/20 21:12 Dose: 25 mg Documented by: Cholecalciferol (Cholecalciferol (Vit D3) 1,000 Unit (25mcg)) 2,000 unit PO DAILY [facility] Last Admin: 11/18/20 08:25 Dose: 2,000 unit Documented by: Clopidogrel Bisulfate (Clopidogrel Bisulfate 75 Mg Tablet) 75 mg PO DAILY [facility] Last Admin: 11/18/20 08:25 Dose: 75 mg Documented by: Dexamethasone (Dexamethasone 2 Mg Tablet) 6 mg PO DAILY [facility] Stop: 11/26/20 10:01 Last Admin: 11/18/20 08:26 Dose: 6 mg Documented by: Enoxaparin Sodium (Enoxaparin 30 Mg/0.3 Ml Syringe) 30 mg SC BID [facility] Last Admin: 11/18/20 21:11 Dose: 30 mg Documented by: Guaifenesin (Guaifenesin 10 Ml Udc (200mg/10ml)) 20 ml PO Q4H PRN PRN PRN Reason: COUGH Sodium Chloride () 250 mls @ 15 mls/hr IV .[id number] PRN PRN Reason: Saline Flush Last Infusion: 11/18/20 08:20 Dose: 0 mls/hr Documented by: Sodium Chloride () 250 mls @ 15 mls/hr IV .[id number] PRN PRN Reason: Additional IVPB Infusion Remdesivir 100 mg/ Sodium (Chloride) 250 mls @ 125 mls/hr IV DAILY@2200 [facility] Stop: 11/20/20 23:59 Last Infusion: 11/18/20 23:30 Dose: Infused Documented by: Lactobacillus Acidophilus (Lactobacillus Acidophilus) 1 tablet PO DAILY [facility] Last Admin: 11/18/20 08:25 Dose: 1 tablet Documented by: Melatonin (Melatonin 3 Mg Tablet) 3 mg PO QHS PRN PRN PRN Reason: INSOMNIA Last Admin: 11/17/20 20:50 Dose: 3 mg Documented by: Memantine (Memantine Hydrochloride 10 Mg Tablet) 10 mg PO BID [facility] Last Admin: 11/18/20 21:13 Dose: 10 mg Documented by: Miscellaneous Information (Inhaler, Assist Devices 1 Each Spacer) 1 each INHALATION PRN PRN PRN Reason: WITH ALBUTEROL INHALER Multivitamins/Minerals (Multivitamins,Ther W-Minerals Tablet) 1 tablet PO DAILY [facility] Last Admin: 11/18/20 08:26 Dose: 1 tablet Documented by: Ondansetron HCl (Ondansetron 4 Mg/2 Ml Vial) 4 mg IV Q8H PRN PRN PRN Reason: NAUSEA/VOMITING Rivastigmine Tartrate (Rivastigmine Tartrate 1.5 Mg Capsule) 3 mg PO BID [facility] Last Admin: 11/18/20 21:12 Dose: 3 mg Documented by: Senna/Docusate Sodium (Senna/Docusate Sodium 1 Tablet) 2 tablet PO BID PRN PRN PRN Reason: Constipation Sodium Chloride (0.9% Saline Lock 10 Ml Syringe) 10 - 40 ml IV UD PRN PRN Reason: SALINE FLUSH Last Admin: 11/19/20 01:11 Dose: 10 ml Documented by: Tamsulosin HCl (Tamsulosin Hcl 0.4 Mg Capsule) 0.4 mg PO BID [facility] Last Admin: 11/18/20 21:13 Dose: 0.4 mg Documented by: STROKE Vital Signs/Narrative: Vital Signs Temp Pulse Resp BP Pulse Ox 11/19/20 06:05 62 91 11/19/20 03:33 20 H 92 11/19/20 03:30 97.5 F L 64 20 H 147/79 H 92 Medical Necessity - Tobacco Use Smoking Status: Unknown if ever smoked Assessment/Plan All Active Problems (Last Reviewed 11/17/20 @ 05:[address] Ciaran Henry MD) Acute respiratory distress syndrome (ARDS) due to 2019 novel coronavirus (Acute) COVID-19 (Acute) Acute coronary syndrome (Resolved) Chest pain (Resolved) Dyspnea on exertion (Resolved) Patient is an 80-year-old gentleman admitted with progressive shortness of breath diagnosed with COVID-19 pneumonia 1. Acute hypoxic respiratory sufficiency ?Secondary to acute COVID-19 pneumonia. Admitted to regular nursing floor where patient is being managed with supplemental oxygen 2. COVID-19 pneumonia ?Admitted to regular nursing floor started on remdesivir as well as Decadron in addition to supplemental oxygen as discussed above consultation placed to infectious disease 3. Coronary artery disease -status post CABG 4. Hypertension - Blood pressure controlled, home medications continued with dose adjustment as needed 5. Dementia ?Patient is on rivastigmine as well as memantine 6. Dyslipidemia -Patient is on statin therapy, continued at home dose 7. Obstructive sleep apnea ?PAP therapy at bedtime 8. BPH ?Patient is on tamsulosin 9. DVT prophylaxis ?Enoxaparin Advance planning; did discuss with the patient and family (patient's POA) regarding advanced directives as well as CODE STATUS. Did explain the various scenarios involved ( FULL CODE, DNR CCA, DNR CCA with no intubation, and DNR CC and what each meant) patient elected to be DNR CCA no intubation. Order was placed. Time spent on discussion 18 minutes. Inpatient E&M: 91294 [facility] Hosp L3 Procedures: 80997 Advncd Care Plan 30 Min
[2020-11-19] MEDS: Enoxaparin 30 MG/0.3 ML Syringe SC ×2 (08:12→21:33)
[2020-11-19] MEDS: Menthol/Lanolin/Calamine/Znox 113 GM Tube 1 APPLIC TOPICAL ×2 (08:13→21:32)
[2020-11-19] MEDS: Memantine Hydrochloride 10 MG Tablet PO ×2 (08:13→21:33)
[2020-11-19] MEDS: dexAMETHasone 2 MG TABLET 6 MG PO (08:14)
[2020-11-19] MEDS: Multivitamins,Ther W-Minerals Tablet 1 TABLET PO (08:17)
[2020-11-19] MEDS: Aspirin 81 MG TAB.CHEW PO (08:17)
[2020-11-19] MEDS: Rivastigmine Tartrate 1.5 MG Capsule 3 MG PO ×2 (08:17→21:32)
[2020-11-19] MEDS: Carvedilol 25 MG Tablet PO ×2 (08:17→21:34)
[2020-11-19] MEDS: Tamsulosin HCl 0.4 MG Capsule PO ×2 (08:18→21:32)
[2020-11-19] MEDS: Clopidogrel Bisulfate 75 MG Tablet PO (08:18)
[2020-11-19] MEDS: amLODIPine 5 MG Tablet PO (08:18)
--- NOTE | 2020-11-19 08:53 | CASEMGMT ---
Addendum entered by Dory Hernandez 11/19/20 09:48: Updates including PT/OT faxed to [facility]. JULIO Ramirez Addendum entered by Dory Hernandez 11/19/20 09:36: Pt's friend Elma Mata called this JIMMY to give SW the information for pt's colostomy supplies. Elma states the pt's flange and bag are [employer], the flange is [id number], the bag is [id number]. The Adhesive removal is [employer], [id number] and the skin prep is [employer], [id number]. She states they order supplies from [employer] [facility] [employer]. JIMMY also offered support to Elma given her friend is here with VONNIE. She is isolating at present due to being near him on his birthday, but so far reports she is feeling fine. JIMMY called [facility], gave Marcia all of the above information. JIMMY will continue to follow for transfer to [facility] when pt is medically ready. JULIO Ramirez Original Note: Pt is not ready for discharge today as per physician. JIMMY called [facility], spoke w/Alejandra Salcedo, let her know pt is not being discharged today. Alejandra asked about pt's colostomy supplies. JIMMY explained that here they used the 2 piece flat kelly cut to fit, and as per the wound RN had said it needs changed twice per week. Alejandra asked about a specific number, SW again reiterated the above. She will look to see if she can get this ordered, states if she can't get it ordered today will not be able to get it until next . JIMMY explained will call family to see if they know what pt uses specifically at home. JIMMY called daughter Bertha, let her know pt is not ready for discharge today. JIMMY asked her the specific supplies for pt's colostomy. She is going to have pt's enrollment representative Elma call this SW with the specifics for the colostomy supplies. JULIO Ramirez
[2020-11-19] MEDS: Atorvastatin Calcium 40 MG Tablet PO (21:32)
[2020-11-20 00:57] VITALS: BP 143/71; PULSE 64; RESP 24; TEMP 36.6; O2SAT 92
[2020-11-20 03:45] VITALS: BP 130/69; PULSE 63; RESP 22; TEMP 36.6; O2SAT 93
[2020-11-20 05:45] VITALS: BP 142/83; PULSE 59; RESP 24; TEMP 36.6; O2SAT 93
[2020-11-20 06:16] LABS: Absolute Lymphocyte Count 0.69 X10^3/uL (0.83-4.51); Absolute Neutrophil Count 10.8 X10^3/uL (2.0-7.7); Basophil# 0.01 X10^3/uL; Basophil% 0.1 % (0-1); Hematocrit 44.9 % (40-54); Hemoglobin 14.9 g/dL (13.0-16.5); Lymphocyte # 0.69 X10^3/ul (4.0); Lymphocyte % 5.6 % (19-41); Mean Corp Hgb Conc 33.2 g/dL (32-36); Mean Corpuscular Volume 102.5 fL (80-94); Mean Platelet Vol. 11.2 fl (6.2-12.0); Monocyte# 0.57 X10^3/uL; Monocyte% 4.6 % (0-10); NRBC Flagged by Analyzer 0 % (0-5); Neutrophil # 10.84 X10^3/uL (2.7-7.7); Neutrophil % 88.5 % (47-70); Platelet Count 208 K/mm3 (150-450); RBC Distribution Width CV 12.6 % (11.6-14.6); RBC Distribution Width SD 47.7 fl (35.1-43.9); Red Blood Count 4.38 M/mm3 (4.6-6.2); White Blood Count 12.3 K/mm3 (4.4-11.0)
[2020-11-20 06:56] LABS: ALB/GLOB Ratio 0.7 RATIO (0.9-2.4); AST(SGOT) 52 U/L (15-37); Alanine Aminotransfer ALT/SGPT 104 U/L (16-61); Albumin, Serum 2.1 g/dL (3.2-5.0); Alkaline Phosphatase 73 U/L (45-117); Anion Gap 5 (5-15); BUN 38 mg/dL (7-18); BUN/Creat Ratio 37.3 RATIO (10-20); Chloride 111 mmol/L (98-107); Creatinine, Serum 1.02 mg/dL (0.70-1.30); EST Glomerular Filtration Rate 75 mL/min (>60); Est Glom Filt Rate - Afr Amer 90 mL/min (>60); Globulin 3.1 g/dL (2.2-4.2); Glucose 235 mg/dL (74-106); Potassium 4.3 mmol/L (3.5-5.1); Protein, Total 5.2 g/dL (6.4-8.2); Sodium Level 140 mmol/L (136-145)
--- NOTE | 2020-11-20 07:32 | PN_ITS ---
Patient Problems: Active and Suspected Problems (Last Reviewed 11/17/20 @ 05:[address] Ciaran Henry MD) Acute respiratory distress syndrome (ARDS) due to 2019 novel coronavirus (Acute) COVID-19 (Acute) Reason for Visit: Acute hypoxic respiratory insufficiency COVID-19 pneumonia Subjective: Patient seen remains fairly stable on 4 L of oxygen. Will discuss with case management regarding possible discharge to [facility] Objective: GENERAL: cooperative HEENT: Atraumatic; EYES; Anicteric, Normal Conjunctiva NECK; supple, normal thyroid, RESPIRATORY: Diminished to auscultation CARDIOVASCULAR: Regular S1 S2, GI: soft, normoactive bowel sounds, : No Renal angle tenderness; EXTREMITIES: No edema, no clubbing, MUSCULOSKELETAL: no muscle waisting NEURO: Awake; no lateralizing signs. SKIN: No Rash PSYCH; Flat affect Vitals/I&O's: Vital Signs Temp Pulse Resp BP Pulse Ox 97.9 F 59 L 24 H 142/83 H 93 11/20/20 05:45 11/20/20 05:45 11/20/20 05:45 11/20/20 05:45 11/20/20 05:45 Oxygen Flow Rate (L/min) 4 Oxygen Delivery Method Nasal Cannula Weight: 100.329 kg Body Mass Index (BMI) 34.6 Intake and Output for Last 24 Hours 11/18/20 11/19/20 11/20/20 23:59 23:59 23:59 Intake Total 1492 / 1492 670 / 670 119 / 119 Output Total 400 / 400 Balance 1492 / 1342 270 / 270 119 / 119 Laboratory Results 11/20/20 06:10: WBC 12.3 H, RBC 4.38 L, Hgb 14.9, Hct 44.9, MCV 102.5 H, MCH 34.0 H, MCHC 33.2, RDW Std Deviation 47.7 H, RDW Coeff of Kush 12.6, Plt Count 208, MPV 11.2, Immature Gran % (Auto) 1.200 H, Neut % (Auto) 88.5 H, Lymph % (Auto) 5.6 L, [place] % (Auto) 4.6, Eos % (Auto) 0.0, Baso % (Auto) 0.1, Absolute Neuts (auto) 10.8 H, Absolute Lymphs (auto) 0.69 L, Nucleated RBC % 0 11/20/20 06:10: Sodium 140, Potassium 4.3, Chloride 111 H, Carbon Dioxide 24.0, Anion Gap 5, BUN 38 H, Creatinine 1.02, Estim Creat Clear Calc 54.00, Est GFR (MDRD) Af Amer 90, Est GFR (MDRD) Non-Af 75, BUN/Creatinine Ratio 37.3 H, Glucose 235 H, Calcium 8.0 L, Total Bilirubin 0.30, AST 52 H, ALT 104 H, Alkaline Phosphatase 73, Total Protein 5.2 L, Albumin 2.1 L, Globulin 3.1, Albumin/Globulin Ratio 0.7 L Current Medications Acetaminophen (Acetaminophen 325 Mg Tablet) 650 mg PO Q6H PRN PRN PRN Reason: Pain Score 1-10/Temp > 100.7 F Last Admin: 11/17/20 20:50 Dose: 650 mg Documented by: Albuterol Sulfate (Albuterol Sulfate 18 Gm Inhaler (200 Puffs)) 2 puff IH Q4H PRN PRN PRN Reason: SOB/Wheezing Amlodipine Besylate (Amlodipine 5 Mg Tablet) 5 mg PO DAILY [facility] Last Admin: 11/19/20 08:18 Dose: 5 mg Documented by: Aspirin (Aspirin 81 Mg Tab.Chew) 81 mg PO DAILY [facility] Last Admin: 11/19/20 08:17 Dose: 81 mg Documented by: Atorvastatin Calcium (Atorvastatin Calcium 40 Mg Tablet) 40 mg PO QHS [facility] Last Admin: 11/19/20 21:32 Dose: 40 mg Documented by: Calamine/Phenol (Menthol/Lanolin/Calamine/Znox 113 Gm Tube) 1 applic TOPICAL BID [facility]; Protocol Last Admin: 11/19/20 21:32 Dose: 1 applicatio Documented by: Carvedilol (Carvedilol 25 Mg Tablet) 25 mg PO BID [facility] Last Admin: 11/19/20 21:34 Dose: 25 mg Documented by: Cholecalciferol (Cholecalciferol (Vit D3) 1,000 Unit (25mcg)) 2,000 unit PO DAILY [facility] Last Admin: 11/19/20 08:10 Dose: 2,000 unit Documented by: Clopidogrel Bisulfate (Clopidogrel Bisulfate 75 Mg Tablet) 75 mg PO DAILY [facility] Last Admin: 11/19/20 08:18 Dose: 75 mg Documented by: Dexamethasone (Dexamethasone 2 Mg Tablet) 6 mg PO DAILY [facility] Stop: 11/26/20 10:01 Last Admin: 11/19/20 08:14 Dose: 6 mg Documented by: Enoxaparin Sodium (Enoxaparin 30 Mg/0.3 Ml Syringe) 30 mg SC BID [facility] Last Admin: 11/19/20 21:33 Dose: 30 mg Documented by: Guaifenesin (Guaifenesin 10 Ml Udc (200mg/10ml)) 20 ml PO Q4H PRN PRN PRN Reason: COUGH Sodium Chloride () 250 mls @ 15 mls/hr IV .[id number] PRN PRN Reason: Saline Flush Last Infusion: 11/20/20 03:30 Dose: 0 mls/hr Documented by: Sodium Chloride () 250 mls @ 15 mls/hr IV .[id number] PRN PRN Reason: Additional IVPB Infusion Remdesivir 100 mg/ Sodium (Chloride) 250 mls @ 125 mls/hr IV DAILY@2200 [facility] Stop: 11/20/20 23:59 Last Infusion: 11/19/20 23:34 Dose: Infused Documented by: Lactobacillus Acidophilus (Lactobacillus Acidophilus) 1 tablet PO DAILY [facility] Last Admin: 11/19/20 08:17 Dose: 1 tablet Documented by: Melatonin (Melatonin 3 Mg Tablet) 3 mg PO QHS PRN PRN PRN Reason: INSOMNIA Last Admin: 11/17/20 20:50 Dose: 3 mg Documented by: Memantine (Memantine Hydrochloride 10 Mg Tablet) 10 mg PO BID [facility] Last Admin: 11/19/20 21:33 Dose: 10 mg Documented by: Miscellaneous Information (Inhaler, Assist Devices 1 Each Spacer) 1 each INHALATION PRN PRN PRN Reason: WITH ALBUTEROL INHALER Multivitamins/Minerals (Multivitamins,Ther W-Minerals Tablet) 1 tablet PO DAILY [facility] Last Admin: 11/19/20 08:17 Dose: 1 tablet Documented by: Ondansetron HCl (Ondansetron 4 Mg/2 Ml Vial) 4 mg IV Q8H PRN PRN PRN Reason: NAUSEA/VOMITING Rivastigmine Tartrate (Rivastigmine Tartrate 1.5 Mg Capsule) 3 mg PO BID [facility] Last Admin: 11/19/20 21:32 Dose: 3 mg Documented by: Senna/Docusate Sodium (Senna/Docusate Sodium 1 Tablet) 2 tablet PO BID PRN PRN PRN Reason: Constipation Sodium Chloride (0.9% Saline Lock 10 Ml Syringe) 10 - 40 ml IV UD PRN PRN Reason: SALINE FLUSH Last Admin: 11/19/20 21:33 Dose: 20 ml Documented by: Tamsulosin HCl (Tamsulosin Hcl 0.4 Mg Capsule) 0.4 mg PO BID [facility] Last Admin: 11/19/20 21:32 Dose: 0.4 mg Documented by: STROKE Vital Signs/Narrative: Vital Signs Temp Pulse Resp BP Pulse Ox 11/20/20 05:45 97.9 F 59 L 24 H 142/83 H 93 11/20/20 03:45 97.9 F 63 22 H 130/69 H 93 Medical Necessity - Tobacco Use Smoking Status: Unknown if ever smoked Assessment/Plan All Active Problems (Last Reviewed 11/17/20 @ 05:[address] Ciaran Henry MD) Acute respiratory distress syndrome (ARDS) due to 2019 novel coronavirus (Acute) COVID-19 (Acute) Acute coronary syndrome (Resolved) Chest pain (Resolved) Dyspnea on exertion (Resolved) Patient is an 80-year-old gentleman admitted with progressive shortness of breath diagnosed with COVID-19 pneumonia 1. Acute hypoxic respiratory sufficiency ?Secondary to acute COVID-19 pneumonia. Admitted to regular nursing floor where patient is being managed with supplemental oxygen 2. COVID-19 pneumonia ?Admitted to regular nursing floor started on remdesivir as well as Decadron in addition to supplemental oxygen as discussed above consultation placed to infectious disease 3. Coronary artery disease -status post CABG 4. Hypertension - Blood pressure controlled, home medications continued with dose adjustment as needed 5. Dementia ?Patient is on rivastigmine as well as memantine 6. Dyslipidemia -Patient is on statin therapy, continued at home dose 7. Obstructive sleep apnea ?PAP therapy at bedtime 8. BPH ?Patient is on tamsulosin 9. DVT prophylaxis ?Enoxaparin Inpatient E&M: 04326 Subs Hosp L2
[2020-11-20 09:06] VITALS: BP 147/80; PULSE 65; RESP 16; TEMP 36.4; O2SAT 93
[2020-11-20] MEDS: Menthol/Lanolin/Calamine/Znox 113 GM Tube 1 APPLIC TOPICAL (09:19)
[2020-11-20] MEDS: Aspirin 81 MG TAB.CHEW PO (09:19)
[2020-11-20] MEDS: Carvedilol 25 MG Tablet PO (09:20)
[2020-11-20] MEDS: dexAMETHasone 2 MG TABLET 6 MG PO (09:20)
[2020-11-20] MEDS: Enoxaparin 30 MG/0.3 ML Syringe SC (09:21)
[2020-11-20] MEDS: Rivastigmine Tartrate 1.5 MG Capsule 3 MG PO (09:21)
[2020-11-20] MEDS: Tamsulosin HCl 0.4 MG Capsule PO (09:21)
[2020-11-20] MEDS: Clopidogrel Bisulfate 75 MG Tablet PO (09:23)
[2020-11-20] MEDS: amLODIPine 5 MG Tablet PO (09:23)
[2020-11-20] MEDS: Memantine Hydrochloride 10 MG Tablet PO (09:23)
[2020-11-20] MEDS: Multivitamins,Ther W-Minerals Tablet 1 TABLET PO (09:23)
--- NOTE | 2020-11-20 11:53 | PCM.TXEXTCAR ---
- Diet 11/17/20 05:16 Diet: Cardiac - Heart Healthy Food consistency:: Regular Liquid Consistency:: Regular/Thin - Routine Orders/Code Status O2 Liters per Minute: 4 O2 Frequency: Continuous Keep PO Greater than or Equal to (%): 90 Code Status: DNRCC-A - Wound(s) R knee Wound Type: Abrasion posterior scrotum Wound Type: Pressure Injury - Therapies Physical Therapy: Eval and Treat Occupational Therapy: Eval and Treat - Allergies/Procedures Done in Hospital Allergies/Adverse Reactions: Allergies Penicillins Adverse Reaction (Verified 11/09/20 20:29) Unknown - Type of Care/Length of Stay Estimated LOS: Convalescent Care Less Than 30 days Type of Care Needed: Skilled Rehab Potential: Good Prognosis: Good - Additional Orders/Day of Discharge Day of Discharge: 11/20/20 - Dietary and Speech Recommendations Dietitian Recommendations/Changes: Continue Cardiac diet as ordered. Will monitor need for po supplement if po intake fails - Follow Up Care Primary Care Physician: Hans Bran Chi, MD [Primary Care Provider] -
--- NOTE | 2020-11-20 11:58 | DS.PCM_ITS ---
Discharge Date and Diagnosis - Problem List Patient Problems: Active and Suspected Problems (Last Reviewed 11/17/20 @ 05:[address] Ciaran Henry MD) Acute respiratory distress syndrome (ARDS) due to 2019 novel coronavirus (Acute) COVID-19 (Acute) Date of Admission: 11/17/20 Date of Discharge: 11/20/20 - Primary Discharge Diagnosis Acute Problems: Active Problems (Last Reviewed 11/17/20 @ 05:[address] Ciaran Henry MD) Acute respiratory distress syndrome (ARDS) due to 2019 novel coronavirus (Acute) COVID-19 (Acute) - Secondary Discharge Diagnosis Chronic Problems: Chronic Problems (Last Reviewed 11/17/20 @ 05:[address] 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 Acute hypoxic respiratory sufficiency ?Secondary to acute COVID-19 pneumonia. Admitted to regular nursing floor where patient is being managed with supplemental oxygen 2. COVID-19 pneumonia ?Admitted to regular nursing floor started on remdesivir as well as Decadron in addition to supplemental oxygen as discussed above consultation placed to infectious disease - Patient condition did remain stable was discharged to [facility] on Decadron 6 mg p.o. for 6 additional days. Prescription was also written for Eliquis 2.5 mg p.o. twice daily for 14 days 3. Coronary artery disease -status post CABG 4. Hypertension - Blood pressure controlled, home medications continued with dose adjustment as needed 5. Dementia ?Patient is on rivastigmine as well as memantine 6. Dyslipidemia -Patient is on statin therapy, continued at home dose 7. Obstructive sleep apnea ?PAP therapy at bedtime 8. BPH ?Patient is on tamsulosin 9. DVT prophylaxis ?Enoxaparin Patient Problems: Active and Suspected Problems (Last Reviewed 11/17/20 @ 05:[address] Ciaran Henry MD) Acute respiratory distress syndrome (ARDS) due to 2019 novel coronavirus (Acute) COVID-19 (Acute) Objective: GENERAL: cooperative HEENT: Atraumatic; EYES; Anicteric, Normal Conjunctiva NECK; supple, normal thyroid, RESPIRATORY: Diminished to auscultation CARDIOVASCULAR: Regular S1 S2, GI: soft, normoactive bowel sounds, : No Renal angle tenderness; EXTREMITIES: No edema, no clubbing, MUSCULOSKELETAL: no muscle waisting NEURO: Awake; no lateralizing signs. SKIN: No Rash PSYCH; Flat affect - Physical Exam Vitals/I&O's: Vital Signs Temp Pulse Resp BP Pulse Ox 97.6 F L 65 16 147/80 H 93 11/20/20 09:06 11/20/20 09:06 11/20/20 09:06 11/20/20 09:06 11/20/20 09:06 Oxygen Flow Rate (L/min) 4 Oxygen Delivery Method Nasal Cannula Weight: 100.329 kg Body Mass Index (BMI) 34.6 Intake and Output for Last 24 Hours 11/18/20 11/19/20 11/20/20 23:59 23:59 23:59 Intake Total 1492 / 1492 670 / 670 119 / 119 Output Total 400 / 400 Balance 1492 / 1342 270 / 270 119 / 119 Laboratory Results 11/20/20 06:10: WBC 12.3 H, RBC 4.38 L, Hgb 14.9, Hct 44.9, MCV 102.5 H, MCH 34.0 H, MCHC 33.2, RDW Std Deviation 47.7 H, RDW Coeff of Kush 12.6, Plt Count 208, MPV 11.2, Immature Gran % (Auto) 1.200 H, Neut % (Auto) 88.5 H, Lymph % (Auto) 5.6 L, [place] % (Auto) 4.6, Eos % (Auto) 0.0, Baso % (Auto) 0.1, Absolute Neuts (auto) 10.8 H, Absolute Lymphs (auto) 0.69 L, Nucleated RBC % 0 11/20/20 06:10: Sodium 140, Potassium 4.3, Chloride 111 H, Carbon Dioxide 24.0, Anion Gap 5, BUN 38 H, Creatinine 1.02, Estim Creat Clear Calc 54.00, Est GFR (MDRD) Af Amer 90, Est GFR (MDRD) Non-Af 75, BUN/Creatinine Ratio 37.3 H, Glucose 235 H, Calcium 8.0 L, Total Bilirubin 0.30, AST 52 H, ALT 104 H, Alkaline Phosphatase 73, Total Protein 5.2 L, Albumin 2.1 L, Globulin 3.1, Albumin/Globulin Ratio 0.7 L Current Medications Acetaminophen (Acetaminophen 325 Mg Tablet) 650 mg PO Q6H PRN PRN PRN Reason: Pain Score 1-10/Temp > 100.7 F Last Admin: 11/17/20 20:50 Dose: 650 mg Documented by: Albuterol Sulfate (Albuterol Sulfate 18 Gm Inhaler (200 Puffs)) 2 puff IH Q4H PRN PRN PRN Reason: SOB/Wheezing Amlodipine Besylate (Amlodipine 5 Mg Tablet) 5 mg PO DAILY [facility] Last Admin: 11/20/20 09:23 Dose: 5 mg Documented by: Aspirin (Aspirin 81 Mg Tab.Chew) 81 mg PO DAILY [facility] Last Admin: 11/20/20 09:19 Dose: 81 mg Documented by: Atorvastatin Calcium (Atorvastatin Calcium 40 Mg Tablet) 40 mg PO QHS [facility] [place] Last Admin: 11/19/20 21:32 Dose: 40 mg Documented by: Calamine/Phenol (Menthol/Lanolin/Calamine/Znox 113 Gm Tube) 1 applic TOPICAL BID [facility]; Protocol Last Admin: 11/20/20 09:19 Dose: 1 applicatio Documented by: Carvedilol (Carvedilol 25 Mg Tablet) 25 mg PO BID [facility] [place] Last Admin: 11/20/20 09:20 Dose: 25 mg Documented by: Cholecalciferol (Cholecalciferol (Vit D3) 1,000 Unit (25mcg)) 2,000 unit PO DAILY [facility] Last Admin: 11/20/20 09:23 Dose: 2,000 unit Documented by: Clopidogrel Bisulfate (Clopidogrel Bisulfate 75 Mg Tablet) 75 mg PO DAILY [facility] [place] Last Admin: 11/20/20 09:23 Dose: 75 mg Documented by: Dexamethasone (Dexamethasone 2 Mg Tablet) 6 mg PO DAILY [facility] Stop: 11/26/20 10:01 Last Admin: 11/20/20 09:20 Dose: 6 mg Documented by: Enoxaparin Sodium (Enoxaparin 30 Mg/0.3 Ml Syringe) 30 mg SC BID [facility] [place] Last Admin: 11/20/20 09:21 Dose: 30 mg Documented by: Guaifenesin (Guaifenesin 10 Ml Udc (200mg/10ml)) 20 ml PO Q4H PRN PRN PRN Reason: COUGH Sodium Chloride () 250 mls @ 15 mls/hr IV .[id number] PRN PRN Reason: Saline Flush Last Infusion: 11/20/20 03:30 Dose: 0 mls/hr Documented by: Sodium Chloride () 250 mls @ 15 mls/hr IV .[id number] PRN PRN Reason: Additional IVPB Infusion Remdesivir 100 mg/ Sodium (Chloride) 250 mls @ 125 mls/hr IV DAILY@2200 [facility] Stop: 11/20/20 23:59 Last Infusion: 11/19/20 23:34 Dose: Infused Documented by: Lactobacillus Acidophilus (Lactobacillus Acidophilus) 1 tablet PO DAILY [facility] [place] Last Admin: 11/20/20 09:19 Dose: 1 tablet Documented by: Melatonin (Melatonin 3 Mg Tablet) 3 mg PO QHS PRN PRN PRN Reason: INSOMNIA Last Admin: 11/17/20 20:50 Dose: 3 mg Documented by: Memantine (Memantine Hydrochloride 10 Mg Tablet) 10 mg PO BID [facility] [place] Last Admin: 11/20/20 09:23 Dose: 10 mg Documented by: Miscellaneous Information (Inhaler, Assist Devices 1 Each Spacer) 1 each INHALATION PRN PRN PRN Reason: WITH ALBUTEROL INHALER Multivitamins/Minerals (Multivitamins,Ther W-Minerals Tablet) 1 tablet PO DAILY [facility] [place] Last Admin: 11/20/20 09:23 Dose: 1 tablet Documented by: Ondansetron HCl (Ondansetron 4 Mg/2 Ml Vial) 4 mg IV Q8H PRN PRN PRN Reason: NAUSEA/VOMITING Rivastigmine Tartrate (Rivastigmine Tartrate 1.5 Mg Capsule) 3 mg PO BID [facility] [place] Last Admin: 11/20/20 09:21 Dose: 3 mg Documented by: Senna/Docusate Sodium (Senna/Docusate Sodium 1 Tablet) 2 tablet PO BID PRN PRN PRN Reason: Constipation Sodium Chloride (0.9% Saline Lock 10 Ml Syringe) 10 - 40 ml IV UD PRN PRN Reason: SALINE FLUSH Last Admin: 11/19/20 21:33 Dose: 20 ml Documented by: Tamsulosin HCl (Tamsulosin Hcl 0.4 Mg Capsule) 0.4 mg PO BID [facility] [place] Last Admin: 11/20/20 09:21 Dose: 0.4 mg Documented by: Discharge Diet: No Restrictions Discharge Activity: Return to Normal Activity Home Medications: Medications to take at Discharge Aspirin [Aspirin, Baby] 81 mg PO DAILY@0800 12/24/14 L.acidoph,Paracasei, B.lactis [Probiotic] 1 ea PO DAILY 10/04/18 Atorvastatin Calcium [Lipitor] 40 mg PO QHS 12/26/18 Tamsulosin HCl [Flomax] 0.4 mg PO BID 12/26/18 Cholecalciferol (Vitamin D3) [Vitamin D3] 2,000 unit PO DAILY 07/08/20 Multivitamin with Minerals [Myvitalife] 1 ea PO DAILY 07/08/20 Ubidecarenone/Vit E/Vit E Mix [Co-Enzyme Q10 100 mg Softgel] 1 ea PO DAILY 07/08/20 Memantine HCl 10 mg PO BID 09/19/20 Rivastigmine Tartrate [Exelon] 3 mg PO BID 09/19/20 Acetaminophen [Tylenol Tablet] 650 mg PO Q6H PRN PRN tab 11/12/20 Amlodipine [Norvasc] 5 mg PO DAILY 30 Days #30 tab 11/12/20 Carvedilol [Coreg (Beta Anna)] 25 mg PO BID tab 11/12/20 Clopidogrel Bisulfate [Plavix] 75 mg PO DAILY tab 11/12/20 Guaifenesin [Robitussin] 20 ml PO Q4H PRN PRN udc 11/12/20 Acetaminophen [Tylenol Tablet] 650 mg PO Q6H PRN PRN tab 11/20/20 Albuterol Sulfate [Albuterol Sulfate HFA] 2 puff IH Q4H PRN PRN inhaler 11/20/20 Apixaban [Eliquis] 2.5 mg PO BID #30 tab 11/20/20 Dexamethasone [Decadron] 6 mg PO DAILY 6 Days #6 tab 11/20/20 Following Prescriptions Were Given to Patient: Dexamethasone [Decadron] 6 mg PO DAILY 6 Days #6 tab Apixaban [Eliquis] 2.5 mg PO BID #30 tab Primary Care Physician: Hans Bran Chi, MD [Primary Care Provider] - Minutes spent on discharge:: 35 Patient Condition:: Stable Medical Necessity - Tobacco Use Smoking Status: Unknown if ever smoked Meaningful Use Info Meaningful Use Diagnoses (Choose all that apply): None applicable Inpatient E&M: [id number] [facility]
--- NOTE | 2020-11-20 12:38 | CASEMGMT ---
Social Work Physician stating pt is ready for discharge today. Phone call to [place] at [facility] and they are able to accept pt today. Transportation arranged with [facility] for 2:30 pickup by cot. Orders faxed to [facility] and updated on discharge time. Staff to send a set of ostomy supplies with pt. left with pt daughter Bertha and updated on discharge time. Nursing notified. Plan: [facility] CARLOS De La Cruz
--- NOTE | 2020-11-20 13:40 | NURSING ---
Called report to Shae nurse at [facility].
[2020-11-20 14:23] VITALS: BP 156/86; PULSE 59; RESP 20; TEMP 36.4; O2SAT 94
== END 2020-11-20 14:35 | disposition skilled nursing facility (03) | DRG 177 ==
LOC: ED 02:05 → MS2 03:37
PROVIDERS: Admitting Provider Hospitalist; Emergency Provider Emergency Medicine; PCP Family Medicine Geriatric Medicine; Visit Provider Internal Medicine
DX: U07.1 COVID-19 (principal); J12.82 Pneumonia due to coronavirus disease 2019; L97.819 Non-pressure chronic ulcer of other part of right lower leg with unspecified severity; I25.10 Atherosclerotic heart disease of native coronary artery without angina pectoris; I25.2 Old myocardial infarction; I10 Essential (primary) hypertension; E78.00 Pure hypercholesterolemia, unspecified; E55.9 Vitamin D deficiency, unspecified; F03.90 Unspecified dementia, unspecified severity, without behavioral disturbance, psychotic disturbance, mood disturbance, and anxiety; K21.9 Gastro-esophageal reflux disease without esophagitis; G47.33 Obstructive sleep apnea (adult) (pediatric); N40.0 Benign prostatic hyperplasia without lower urinary tract symptoms; R62.7 Adult failure to thrive; R09.02 Hypoxemia; R29.6 Repeated falls; Z66 Do not resuscitate; Z93.3 Colostomy status; Z95.1 Presence of aortocoronary bypass graft; Z79.82 Long term (current) use of aspirin; Z79.02 Long term (current) use of antithrombotics/antiplatelets; Z79.899 Other long term (current) drug therapy; Z87.891 Personal history of nicotine dependence; Z85.048 Personal history of other malignant neoplasm of rectum, rectosigmoid junction, and anus; Z86.73 Personal history of transient ischemic attack (TIA), and cerebral infarction without residual deficits
CPT/HCPCS: 71045; 71275; 80048; 80053; 80076; 83735; 83880; 84145; 84484; 85025; 85379; 93005; 94640; 97110; 97162; 97166; 97530; 97535; 99285; J7050; Q9967; A4216

== ENCOUNTER 2021-02-07 14:25 | Emergency (ER) | payer MEDICARE, OTHER, SELFPAY ==
[2020-11-17 04:16] VITALS: BMI 34.6
[2021-02-07 14:27] VITALS: BP 184/86; PULSE 74; RESP 19; TEMP 37.3; O2SAT 91; BMI 38.4
[2021-02-07 14:32] VITALS: BMI 38.4
--- NOTE | 2021-02-07 14:37 | EKG12_ITS ---
Test Reason : Blood Pressure : / mmHG Vent. Rate : 071 BPM Atrial Rate : 071 BPM P-R Int : 168 ms QRS Dur : 084 ms QT Int : 400 ms P-R-T Axes : 034 035 061 degrees QTc Int : 434 ms Normal sinus rhythm Nonspecific ST and T wave abnormality Abnormal ECG Confirmed by PAUL NAVA, YUNIOR ([id number]), news editor MAUIR SOTO ([id number]) on 02/11/2021 10:57:30 AM Referred By: LUISA Confirmed By:YUNIOR MILLER MD
--- NOTE | 2021-02-07 14:41 | EX.ED.DYSGE1 ---
HPI History of Present Illness Chief Complaint: Neuro S/Sx Informant: patient and EMS Limited: dementia Onset/Context/Timing Onset: Today Timing: Continuous Current Severity: Mild Maximum Severity: Mild Narrative Narrative: 80-year-old male is in hospice care due to dementia. He was brought in today for change in mental status. He himself is a limited informant. He was brought in by squad and I discussed with them. Reportedly the patient was not acting himself so he was brought to the emergency department. The patient himself denies any specific complaints. Last time he was known well was last night at 1030. He has had no fever. He does have a history of a prior quadruple bypass and stroke. Prior similar symptoms: Yes Recent Illness/Hospitalization: No PFSH [facility] Medical History (Updated 02/07/21 @ 16:[address] Nahum Zapata MD) Atherosclerosis of coronary artery without angina pectoris Claudication Concussion CVA (cerebral vascular accident) Essential (primary) hypertension GERD (gastroesophageal reflux disease) History of esophageal stricture Hyperlipidemia Obesity Obstructive sleep apnea Polycythemia vera Rectal cancer Home Medications aspirin 81 mg PO DAILY@0800 12/24/14 [History Last Taken 10/04/18] L.acidoph, paracasei,B. lactis 1 ea PO DAILY 10/04/18 [History Last Taken 10/04/18] atorvastatin 40 mg PO QHS 12/26/18 [History Last Taken Unknown] tamsulosin 0.4 mg PO BID 12/26/18 [History Last Taken Unknown] cholecalciferol (vitamin D3) 2,000 unit PO DAILY 07/08/20 [History Last Taken Unknown] coenzyme Q10-vit E-vit E mixed 1 ea PO DAILY 07/08/20 [History Last Taken Unknown] multivitamin with minerals 1 ea PO DAILY 07/08/20 [History Last Taken Unknown] memantine 10 mg PO BID 09/19/20 [History Last Taken Unknown] rivastigmine tartrate 3 mg PO BID 09/19/20 [History Last Taken Unknown] acetaminophen 650 mg PO Q6H PRN PRN tab 11/12/20 [Rx Last Taken Unknown] carvedilol 25 mg PO BID tab 11/12/20 [Rx Last Taken Unknown] clopidogrel 75 mg PO DAILY tab 11/12/20 [Rx Last Taken Unknown] guaifenesin 20 ml PO Q4H PRN PRN udc 11/12/20 [Rx Last Taken Unknown] acetaminophen 650 mg PO Q6H PRN PRN tab 11/20/20 [Rx Last Taken Unknown] albuterol sulfate 2 puff IH Q4H PRN PRN inhaler 11/20/20 [Rx Last Taken Unknown] apixaban 2.5 mg PO BID #30 tab 11/20/20 [Rx Last Taken Unknown] Allergy/AdvReac Type Severity Reaction Status Date / Time Penicillins AdvReac Unknown Verified 11/09/20 20:29 Family History Mother Breast cancer Father Heart disease Brother Myocardial infarction Surgical History H/O coronary artery bypass surgery (10/12/18) History of colon resection (2014) History of colostomy History of left heart catheterization (10/05/18) Social History Smoking Status: Unknown if ever smoked how long ago did patient quit smokin alcohol intake: never substance use type: does not use caffeine: Yes ROS ROS ED ROS Narrative Patient is a limited informant due to dementia. He has had a prior stroke. He does not know the month or day but he does know where he is at. Currently there is no family present. Review of Systems ROS Unobtainable: due to mental status Constitutional Constitutional ED: Denies fever(s) Eyes Eyes: Denies change in vision ENT ENT ED: Denies rhinorrhea or sore throat Cardiovascular Cardiovascular: Denies chest pain Respiratory/Chest Respiratory/Chest: Denies cough or dyspnea Gastrointestinal Gastrointestinal: Denies abdominal pain, nausea or vomiting Genitourinary Genitourinary ED: Denies dysuria Musculoskeletal Musculoskeletal: Denies neck pain Integumentary Denies abscess Neurologic Neurologic: Denies headache(s) Psychiatric Psychiatric: Denies suicidal thoughts Endocrine Endocrinology: Denies polyuria Allergic/Immunologic Allergic/Immunologic ED: Denies urticaria EXAM Physical Exam Const Vital Signs: 02/07/21 14:27 Temperature 99.2 F H Temperature Source Temporal Pulse Rate 74 Respiratory Rate 19 H Blood Pressure 184/86 H Blood Pressure Mean 118 Pulse Ox 91 Oxygen Delivery Method Room Air Positive well nourished, well developed and obese Constitutional Narrative: Older male history dementia limited informant. But he is in no acute distress. Vital signs are stable afebrile. Pulse ox 91% on room air no signs of hypoxia. He does not look septic or toxic. General Appearance ED: well developed Nutritional Appearance: obese HEENT Negative for trauma or tenderness Eyes PERRL Neck no lymphadenopathy, supple and no JVD General: Negative for tenderness Chest Wall inspection of chest normal Chest Narrative: Status post open sternotomy incision. Resp normal respiratory effort and clear to auscultation bilaterally Cardio regular rate and regular rhythm GI normal to inspection, nondistended, normoactive bowel sounds, non-tender and non-distended GI Narrative: Colostomy bag with brown stool and gas. Auscultation: normoactive bowel sounds Palpation: soft Back/Spine no CVA tenderness Extremity General Extremety ED: Yes edema General Extremity: edema Neuro No oriented x3 Neuro Narrative: Older male. He does have confusion from dementia. He does answer questions and follow commands. He is moving all 4 extremities. He is generally weak but I do not see any lateralizing weakness to one side or the other. Sensorium / Orientation: alert and orientation impaired Motor Exam: general weakness Skin no rashes or lesions noted MDM MDM MDM Narrative Medical decision making narrative: Older male with dementia sent in for generalized weakness and confusion. He has baseline of dementia. He will be worked up for possible infectious etiology versus stroke but at this time I really do not think this is stroke related. Versus electrolyte abnormalities, dehydration versus other. His exam is relatively benign. Patient's labs returned a CBC, chemistry were basically unremarkable. EKG shows normal sinus rhythm rate of 71 with no acute signs of IN or ischemia. Other work-up was ordered. Hospice nurse came and discussed with the patient's care and overall plan he spoke to the family and power of trial attorney via phone and they do not want a thorough work-up or any further testing. Which actually is very reasonable. Clinically I do not think this patient had an acute stroke and even if he did given his overall medical history I do not think there would be any intervention at this time. Repeat exam 4:15 PM is unchanged. CAT scan, x-ray, urinalysis and other testing were canceled. Lab Data Labs: Laboratory Results - last 24 hr 02/07/21 02/07/21 02/07/21 14:37 14:37 14:37 WBC 8.4 RBC 4.51 L Hgb 15.2 Hct 46.0 MCV 102.0 H MCH 33.7 H MCHC 33.0 RDW Std Deviation 52.4 H RDW Coeff of Kush 13.9 Plt Count 205 MPV 11.0 Immature Gran % (Auto) 0.500 Neut % (Auto) 82.8 H Lymph % (Auto) 10.0 L [place] % (Auto) 6.2 Eos % (Auto) 0.1 Baso % (Auto) 0.4 Absolute Neuts (auto) 6.9 Absolute Lymphs (auto) 0.84 Nucleated RBC % 0 PT 13.5 INR 1.1 Sodium 139 Potassium 3.6 Chloride 103 Carbon Dioxide 31.0 Anion Gap 5 BUN 20 H Creatinine 1.29 Estim Creat Clear Calc 42.70 Est GFR (MDRD) Af Amer 69 Est GFR (MDRD) Non-Af 57 L BUN/Creatinine Ratio 15.5 Glucose 134 H Lactic Acid Calcium 9.1 Total Bilirubin 0.60 AST 11 L ALT 21 Alkaline Phosphatase 121 H Troponin I < 0.015 Total Protein 7.8 Albumin 3.4 Globulin 4.4 H Albumin/Globulin Ratio 0.8 L 02/07/21 14:45 WBC RBC Hgb Hct MCV MCH MCHC RDW Std Deviation RDW Coeff of Kush Plt Count MPV Immature Gran % (Auto) Neut % (Auto) Lymph % (Auto) [place] % (Auto) Eos % (Auto) Baso % (Auto) Absolute Neuts (auto) Absolute Lymphs (auto) Nucleated RBC % PT INR Sodium Potassium Chloride Carbon Dioxide Anion Gap BUN Creatinine Estim Creat Clear Calc Est GFR (MDRD) Af Amer Est GFR (MDRD) Non-Af BUN/Creatinine Ratio Glucose Lactic Acid 1.6 Calcium Total Bilirubin AST ALT Alkaline Phosphatase Troponin I Total Protein Albumin Globulin Albumin/Globulin Ratio EKG Initial EKG: Attestation: I personally reviewed and interpreted this EKG as follows: Interpretation: Sinus Rhythm Comments: Normal sinus rhythm rate of 71 no acute signs of IN or ischemia. Discharge Plan Triage Chief Complaint: Neuro S/Sx ED Provider: Nahum Zapata Dx/Rx/DC Orders Clinical Impression: Acute confusion, Generalized weakness Instructions: ED ALOC Prescriptions: No Action aspirin 81 MG tablet,chewable 81 mg PO DAILY@0800 RF: 0 tamsulosin 0.4 MG capsule 0.4 mg PO BID RF: 0 atorvastatin 40 MG tablet 40 mg PO QHS RF: 0 multivitamin with minerals 1 EACH capsule 1 ea PO DAILY RF: 0 cholecalciferol (vitamin D3) 2,000 UNIT capsule 2,000 unit PO DAILY RF: 0 coenzyme Q10-vit E-vit E mixed 1 EACH capsule 1 ea PO DAILY RF: 0 L.acidoph, paracasei,B. lactis 1 EACH capsule 1 ea PO DAILY RF: 0 rivastigmine tartrate 1.5 MG capsule 3 mg PO BID RF: 0 memantine 10 MG tablet 10 mg PO BID RF: 0 carvedilol 25 MG tablet 25 mg PO BID RF: 0 acetaminophen 325 MG tablet 650 mg PO Q6H PRN PRN (Reason: Pain Score 1-10/Temp > 100.7 F) RF: 0 clopidogrel 75 MG tablet 75 mg PO DAILY RF: 0 guaifenesin 10 ML liquid 20 ml PO Q4H PRN PRN (Reason: COUGH) RF: 0 acetaminophen 325 MG tablet 650 mg PO Q6H PRN PRN (Reason: Pain Score 1-10/Temp > 100.7 F) RF: 0 albuterol sulfate 1 PUFF inhaler 2 puff IH Q4H PRN PRN (Reason: SOB/Wheezing) RF: 0 apixaban 2.5 MG tablet 2.5 mg PO BID Qty: 30 RF: 0 Primary Care Provider: Hans Bran Chi Referrals: Hans Bran Chi, MD [Primary Care Provider] - As Needed
[2021-02-07 14:54] LABS: Absolute Lymphocyte Count 0.84 X10^3/uL (0.83-4.51); Absolute Neutrophil Count 6.9 X10^3/uL (2.0-7.7); Basophil# 0.03 X10^3/uL; Basophil% 0.4 % (0-1); Eosinophil# 0.01 X10^3/uL; Eosinophils% 0.1 % (0-5); Hemoglobin 15.2 g/dL (13.0-16.5); Lymphocyte # 0.84 X10^3/ul (0.83-4.51); Mean Corpuscular Hgb 33.7 pg (27.0-32.0); Monocyte# 0.52 X10^3/uL; Monocyte% 6.2 % (0-10); NRBC Flagged by Analyzer 0 % (0-5); Neutrophil # 6.93 X10^3/uL (2.7-7.7); Neutrophil % 82.8 % (47-70); Platelet Count 205 K/mm3 (150-450); RBC Distribution Width CV 13.9 % (11.6-14.6); RBC Distribution Width SD 52.4 fl (35.1-43.9); Red Blood Count 4.51 M/mm3 (4.6-6.2); White Blood Count 8.4 K/mm3 (4.4-11.0)
[2021-02-07 15:00] LABS: International Normalized Ratio 1.1; Prothrombin Time (Protime)PT. 13.5 SECONDS (11.7-14.9)
[2021-02-07 15:06] LABS: ALB/GLOB Ratio 0.8 RATIO (0.9-2.4); AST(SGOT) 11 U/L (15-37); Alanine Aminotransfer ALT/SGPT 21 U/L (16-61); Albumin, Serum 3.4 g/dL (3.2-5.0); Alkaline Phosphatase 121 U/L (45-117); Anion Gap 5 (5-15); BUN 20 mg/dL (7-18); BUN/Creat Ratio 15.5 RATIO (10-20); Calcium,Total 9.1 mg/dL (8.5-10.1); Chloride 103 mmol/L (98-107); Creatinine, Serum 1.29 mg/dL (0.70-1.30); EST Glomerular Filtration Rate 57 mL/min (>60); Est Glom Filt Rate - Afr Amer 69 mL/min (>60); Globulin 4.4 g/dL (2.2-4.2); Glucose 134 mg/dL (74-106); Potassium 3.6 mmol/L (3.5-5.1); Protein, Total 7.8 g/dL (6.4-8.2); Sodium Level 139 mmol/L (136-145)
[2021-02-07 15:20] LABS: Lactic Acid 1.6 mmol/L (0.4-1.9)
--- NOTE | 2021-02-07 16:07 | ED.RN ---
pt private duty rn stating family does not want any other care. will return home in 30 minutes by physicians.
[2021-02-07 16:11] VITALS: BP 149/77; RESP 18
== END 2021-02-07 16:59 | disposition home or self-care (01) ==
LOC: ED 14:46
PROVIDERS: Emergency Provider Emergency Medicine; PCP Family Medicine Geriatric Medicine
DX: R41.0 Disorientation, unspecified (principal); R53.1 Weakness; F03.90 Unspecified dementia, unspecified severity, without behavioral disturbance, psychotic disturbance, mood disturbance, and anxiety; I25.10 Atherosclerotic heart disease of native coronary artery without angina pectoris; I10 Essential (primary) hypertension; K21.9 Gastro-esophageal reflux disease without esophagitis; E78.5 Hyperlipidemia, unspecified; G47.33 Obstructive sleep apnea (adult) (pediatric); D45 Polycythemia vera; I73.9 Peripheral vascular disease, unspecified; E66.9 Obesity, unspecified; Z68.38 Body mass index [BMI] 38.0-38.9, adult; Z95.1 Presence of aortocoronary bypass graft; Z79.01 Long term (current) use of anticoagulants; Z79.82 Long term (current) use of aspirin; Z79.899 Other long term (current) drug therapy; Z87.891 Personal history of nicotine dependence; Z86.73 Personal history of transient ischemic attack (TIA), and cerebral infarction without residual deficits
CPT/HCPCS: 80053; 83605; 84484; 85025; 85610; 87040; 87426; 93005; 99285; A4216

== ENCOUNTER → 2023-01-14 | Outpatient (CLI) | payer MEDICARE, SELFPAY ==
[2023-01-14 16:58] LABS: Absolute Lymphocyte Count 1.53 X10^3/uL (0.83-4.51); Absolute Neutrophil Count 5.6 X10^3/uL (2.0-7.7); Basophil# 0.04 X10^3/uL; Basophil% 0.5 % (0-1); Hemoglobin 16.5 g/dL (13.0-16.5); Lymphocyte # 1.53 X10^3/ul (0.83-4.51); Lymphocyte % 18.3 % (19-41); Mean Corp Hgb Conc 34.4 g/dL (32-36); Mean Platelet Vol. 11.6 fl (6.2-12.0); Monocyte# 0.63 X10^3/uL; Monocyte% 7.5 % (0-10); NRBC Flagged by Analyzer 0 % (0-5); Neutrophil # 5.62 X10^3/uL (2.7-7.7); Neutrophil % 67.3 % (47-70); Platelet Count 199 K/mm3 (150-450); RBC Distribution Width CV 12.3 % (11.6-14.6); RBC Distribution Width SD 45.1 fl (35.1-43.9); Red Blood Count 4.85 M/mm3 (4.6-6.2); White Blood Count 8.4 K/mm3 (4.4-11.0)
[2023-01-14 17:24] LABS: Vitamin D,25 Hydroxy 44.8 ng/mL
[2023-01-14 17:38] LABS: ALB/GLOB Ratio 0.8 RATIO (0.9-2.4); AST(SGOT) 19 U/L (15-37); Alanine Aminotransfer ALT/SGPT 21 U/L (16-61); Albumin, Serum 3.4 g/dL (3.2-5.0); Alkaline Phosphatase 123 U/L (45-117); Anion Gap 9 (5-15); BUN 19 mg/dL (7-18); BUN/Creat Ratio 13.9 RATIO (10-20); Calcium,Total 9.2 mg/dL (8.5-10.1); Chloride 105 mmol/L (98-107); Creatinine, Serum 1.37 mg/dL (0.70-1.30); EST Glomerular Filtration Rate 53 mL/min (>60); Est Glom Filt Rate - Afr Amer 64 mL/min (>60); Globulin 4.1 g/dL (2.2-4.2); Glucose 129 mg/dL (74-106); Potassium 3.3 mmol/L (3.5-5.1); Protein, Total 7.5 g/dL (6.4-8.2); Sodium Level 141 mmol/L (136-145); Thyroid Stim Hormone (TSH) 2.08 uIU/mL (0.358-3.74)
== END | disposition home or self-care (01) ==
LOC: POLAB3 14:22
PROVIDERS: PCP Family Medicine Geriatric Medicine; Visit Provider Family Medicine Geriatric Medicine
DX: E55.9 Vitamin D deficiency, unspecified (principal); R53.83 Other fatigue
CPT/HCPCS: 36415; 80053; 82306; 84443; 85025

== ENCOUNTER 2023-07-01 14:35 | Inpatient (IN) | payer MEDICARE, OTHER, SELFPAY ==
[2023-07-01] VITALS (15 sets, daily range): BP systolic 140–180; BP diastolic 69–90; PULSE 24–69; RESP 16–28; TEMP 36.2–36.6; O2SAT 93–98; BMI 34.7; BMI 33.1
--- NOTE | 2023-07-01 14:43 | EKG12_ITS ---
Test Reason : POSS STROKE Blood Pressure : / mmHG Vent. Rate : 057 BPM Atrial Rate : 057 BPM P-R Int : 188 ms QRS Dur : 086 ms QT Int : 472 ms P-R-T Axes : 054 -10 096 degrees QTc Int : 459 ms Sinus bradycardia Nonspecific T wave abnormality Abnormal ECG Confirmed by SHAKIR NAVA, TUCKER ([id number]), tape editor EUSEBIO LLANES ([id number]) on 07/06/2023 11:27:57 AM Referred By: Confirmed By:JACIEL SCHILLING MD
--- NOTE | 2023-07-01 14:45 | CT_ITS ---
STUDY: CT HEAD STROKE PROTOCOL W/O CONTRAST INJECTION REASON FOR EXAM: Male, 82 years old. STROKE RADIATION DOSAGE (If Supplied By Facility): CTDIvol = ( 44.99 ) mGy, DLP = ( 829.85 ) mGycm TECHNIQUE: Transaxial CT imaging of the brain was performed without administration of intravenous contrast material. Individualized dose optimization techniques were used for this CT. COMPARISON: Comparison is made with prior study dated November 09, 2020. FINDINGS: Normal soft tissue structures. Normal calvarium. There is moderate cerebral atrophy with widening of the extra-axial spaces and ventricular dilatation. There are areas of decreased attenuation within the white matter tracts of the supratentorial brain, consistent with microvascular disease changes. Normal basal ganglia and thalami. Normal brainstem. Normal cerebellum. There is no intracranial hemorrhage. There are no findings of an acute ischemic infarction. Atherosclerotic plaque formation of the cavernous portions of the internal carotid arteries bilaterally. Normal visualized paranasal sinuses. ASPECT score: 10 CT/STROKE Brain/Head without Cont IMPRESSION: Chronic involutional changes of the brain. of the brain. N.B. : The above Results were Read Back by Yobany Colon MD to Dany Tony and understanding confirmed on 07/01/2023 15:04:22 (ET). Electronically Signed: Yobany Colon MD at 15:05 EDT ,
--- NOTE | 2023-07-01 14:46 | CT_ITS ---
STUDY: CTA HEAD AND NECK WITH CONTRAST REASON FOR EXAM: Male, 82 years old. Neuro deficit, acute, stroke suspected RADIATION DOSAGE (If Supplied By Facility): CTDIvol = ( 26.213 ) mGy, DLP = ( 761.42 ) mGycm TECHNIQUE: CT angiography was performed with a multi-detector CT scanner. Data acquisition was obtained from the skull base through the vertex following intravenous administration of IV 100mL [id number]-[id number]. MIP images were reconstructed from the axial data set. Post-processing of the angiographic images was performed, with multiplanar reformation and 3D reconstruction. Individualized dose optimization techniques were used for this CT. COMPARISON: No relevant priors. FINDINGS: Normal bilateral petrous carotid arteries. There is calcified plaque formation of the right cavernous carotid artery, without a cross-sectional luminal stenosis. There is calcified plaque formation of the left cavernous carotid artery, without a cross-sectional luminal stenosis. Normal right A1 segments of the anterior cerebral artery. Normal left A1 segments of the anterior cerebral artery. Normal intact anterior communicating artery (ACOM). Normal bilateral A2 segments of the anterior cerebral arteries. Normal right M1 and M2 segments of the middle cerebral arteries, with a normal M1 bifurcation. There is irregularity of the left M1 and M2 branches with minimal luminal narrowing, suggesting atherosclerotic plaque formation, without an occlusion. Normal right posterior communicating artery (PCOM). Normal left posterior communicating artery (PCOM). Normal bilateral vertebral arteries. Normal basilar artery with a normal basilar bifurcation. The visualized bilateral superior cerebellar (SCA) arteries are normal. Normal bilateral P1, P2 and visualized P3 segments of the posterior cerebral arteries. There is no demonstrated aneurysm of the [place]. There is no demonstrated abnormality of the visualized brain. AORTIC ARCH: There is atherosclerotic calcific plaque formation of the aortic arch and great vessels arising from the aortic arch, without a hemodynamically significant stenosis. There is a normal origin of the brachiocephalic, left common carotid, and left subclavian arteries. Atherosclerotic calcific plaque seen at the origin of the right brachiocephalic artery as well as the left common carotid and left subclavian arteries. Prior CABG. Heterogeneous appearance of the left lobe of the thyroid. RIGHT CAROTID ARTERIES: There is atherosclerotic plaque formation of the common carotid artery, but without a hemodynamically significant stenosis. Normal right common carotid bulb. There is moderate atherosclerotic plaque formation of the origin of the right internal carotid artery with an estimated stenosis of 50-69% stenosis. Normal visualized cervical portion of the right internal carotid artery. Normal origin of the right external carotid artery (ECA). LEFT CAROTID ARTERIES: There is atherosclerotic plaque formation of the common carotid artery, but without a hemodynamically significant stenosis. Normal left common carotid bulb. There is extensive atherosclerotic plaque formation of the origin of the left internal carotid artery with an estimated stenosis of greater than 70%. Normal visualized cervical portion of the left internal carotid artery. Normal origin of the left external carotid artery (ECA). VERTEBRAL ARTERIES: Calcific plaques seen in the right vertebral artery. Dense calcific plaque in the distal portion of the left vertebral artery. CT/STROKE CTA Head AND Neck W/Con IMPRESSION: Moderate atherosclerotic plaque at the origin of the right internal carotid artery causing approximately 50-69% narrowing. Atherosclerotic plaque formation at the origin of the left internal carotid artery causing greater than 70% narrowing. N.B. : The above Results were Read Back by Yobany Colon MD to Dr Cecily DO, and understanding confirmed on 07/01/2023 15:17:30 (ET). Electronically Signed: Yobany Colon MD at 15:18 EDT ,
--- NOTE | 2023-07-01 15:04 | EX.ED.DYSGE1 ---
HPI History of Present Illness Chief Complaint: Neuro S/Sx [facility] Medical History Acute respiratory distress syndrome (ARDS) due to 2019 novel coronavirus Atherosclerosis of coronary artery without angina pectoris BPH (benign prostatic hyperplasia) COVID-19 CVA (cerebral vascular accident) Dementia Essential (primary) hypertension Failure to thrive in adult Frequent falls GERD (gastroesophageal reflux disease) History of esophageal stricture Hyperlipidemia NSTEMI (non-ST elevated myocardial infarction) Obesity Obstructive sleep apnea Polycythemia vera Rectal cancer Home Medications aspirin 81 mg chewable tablet 81 mg PO DAILY@0800 [facility] 12/24/14 [History Last Taken 10/04/18] cholecalciferol (vitamin D3) 50 mcg (2,000 unit) capsule 2,000 unit PO DAILY 07/08/20 [History Last Taken Unknown] carvedilol 25 mg tablet 25 mg PO BID 11/12/20 [Rx Last Taken Unknown] amlodipine 5 mg tablet 5 mg PO DAILY PRN 03/27/21 [History Last Taken Unknown] furosemide 40 mg tablet 40 mg PO DAILY 03/27/21 [History Last Taken Unknown] lisinopril 2.5 mg tablet 2.5 mg PO DAILY 03/27/21 [History Last Taken Unknown] Allergy/AdvReac Type Severity Reaction Status Date / Time Penicillins AdvReac Unknown Verified 03/19/22 12:58 Family History Mother Breast cancer Father Heart disease Brother Myocardial infarction Surgical History H/O coronary artery bypass surgery (10/12/18) History of colon resection (2014) History of colostomy History of left heart catheterization (10/05/18) Social History Smoking Status: Unknown if ever smoked how long ago did patient quit smokin alcohol intake: never substance use type: does not use caffeine: Yes EXAM Physical Exam Const Vital Signs: 07/01/23 15:04 07/01/23 15:04 07/01/23 14:39 Temperature 97.8 F Temperature Source Temporal Pulse Rate 60 58 L Respiratory Rate 16 16 Blood Pressure 153/70 H 151/69 H Blood Pressure Mean 97 96 Pulse Ox 95 95 Oxygen Delivery Method Room Air Room Air Room Air 07/01/23 15:30 07/01/23 16:00 07/01/23 16:00 Temperature Temperature Source Pulse Rate 56 L 59 L 58 L Respiratory Rate 17 22 H 28 H Blood Pressure 159/79 H 141/80 H 141/80 H Blood Pressure Mean 105 100 100 Pulse Ox 94 94 95 Oxygen Delivery Method Room Air Room Air Room Air 07/01/23 16:30 07/01/23 17:00 07/01/23 17:30 Temperature Temperature Source Pulse Rate 59 L 59 L 64 Respiratory Rate 16 16 16 Blood Pressure 142/76 H 165/71 H 177/79 H Blood Pressure Mean 98 102 111 Pulse Ox 94 94 94 Oxygen Delivery Method Room Air Room Air Room Air 07/01/23 18:00 Temperature Temperature Source Pulse Rate 65 Respiratory Rate 16 Blood Pressure 161/90 H Blood Pressure Mean 113 Pulse Ox 93 Oxygen Delivery Method MDM MDM MDM Narrative Medical decision making narrative: HISTORY OF PRESENT ILLNESS: 82-year-old male here with concern for left upper extremity weakness. Last known well was 9 AM per the patient's . He is on anticoagulation. REVIEW OF SYSTEMS: Pertinent positives: Left arm weakness Pertinent negatives: Chest pain, shortness of breath PHYSICAL EXAM: Nursing triage notes reviewed, Vital signs reviewed Constitutional: please see mdm HENT: MMM Eyes: Pupils equal round and reactive to light, Extraocular muscles intact Neck: No stridor, no JVD, full neck ROM Lungs: Clear to auscultation, No wheezing or rales. No increased work of breathing, no conversational dyspnea, no accessory muscle use, no nasal flaring. No respiratory distress noted Heart: Regular rate and rhythm, No murmurs, No rubs and No gallops, 2+ distal pulses (radial, femoral, posterior tibial) in all extremities Abdomen: Soft, there is no tenderness, rigidity, rebound or guarding, no obvious peritoneal signs, no palpable pulsatile abdominal masses, no auscultated abdominal bruit : No CVAT Extremities: No edema Neuro: Alert, left-sided facial droop, left upper arm drift, left upper arm ataxia noted, NIH of 3 Skin: No rash or lesions noted MEDICAL DECISION MAKING: Chief Complaint: Left arm weakness External records reviewed: Imaging reviewed: CT scan from October 2020 shows no acute findings Factors affecting care: Dementia, CVA, hypertension, GERD, esophageal stricture, LEÓN, rectal cancer, CAD Social determinants of health: none History obtained from others: EMS, patient's Consults: Stroke neurology, radiology, internal medicine MDM Narrative: Patient was initially hemodynamically stable, afebrile, nontoxic-appearing. Initial NIH of 3 for left-sided facial droop, left upper extremity weakness and left upper extremity ataxia. Patient was out of the window for TNK given last known well. However he still a candidate for thrombectomy so I continued the code stroke protocol to obtain a CTA of the head and neck as well as a Noncon CT scan of the head. I considered the following differential diagnosis: ICH, CVA, TIA, seizure ALL IMAGES (IF OBTAINED) HAVE BEEN PERSONALLY REVIEWED AND INTERPRETED BY MYSELF. EKG with sinus bradycardia, left axis deviation, normal intervals, no STEMI Troponin is negative, no evidence of myocardial ischemia BMP without evidence of significant electrolyte abnormalities, no anion gap, no acute kidney injury. No evidence of coagulopathy I have personally reviewed the patient's chest x-ray. Chest x-ray is unremarkable for pulmonary edema, pneumothorax, pneumonia or focal cardiopulmonary abnormality. CBC without leukocytosis, severe anemia, no thrombocytopenia. CT scan of the head shows no evidence of ICH CT of the head neck shows no evidence of large vessel occlusion Patient was given aspirin, frequent neurochecks were continued and he was admitted to the floor for risk factor modification MRI. Discussed with Dr. Peck. The patient and/or family, caregivers express understanding. The patient and/or family, caregivers agrees with the plan. Shared decision making: I will have a discussion with the patient and or visitors regarding risk/benefits of further testing or admission. They will be made aware of of the risk/benefits inherent in this decision they will be given the opportunity to voice understanding. Total critical care time today provided was at least 35 minutes. This excludes separately billable procedures. Critical care time (if documented) is secondary to the patient having high probability of clinically significant/life threatening deterioration in the patient's condition which required my urgent intervention. Impression: 1. Acute CVA 2. Left upper extremity weakness Dispo: Admit to medicine Lab Data Labs: Laboratory Results - last 24 hr 07/01/23 07/01/23 15:00 15:40 WBC 7.8 RBC 4.32 L Hgb 15.1 Hct 43.6 MCV 100.9 H MCH 35.0 H MCHC 34.6 RDW Std Deviation 48.8 H RDW Coeff of Kush 13.1 Plt Count 210 MPV 10.8 Immature Gran % (Auto) 0.500 Neut % (Auto) 60.7 Lymph % (Auto) 24.6 [place] % (Auto) 8.3 Eos % (Auto) 5.4 H Baso % (Auto) 0.5 Absolute Neuts (auto) 4.7 Absolute Lymphs (auto) 1.92 Nucleated RBC % 0 PT 12.8 INR 1.0 APTT 31.6 Sodium Cancelled 138 Potassium Cancelled 3.8 Chloride Cancelled 103 Carbon Dioxide Cancelled 33.0 H Anion Gap Cancelled 2 L BUN Cancelled 16 Creatinine Cancelled 1.21 Estim Creat Clear Calc Cancelled 44.01 Est GFR (MDRD) Af Amer Cancelled 74 Est GFR (MDRD) Non-Af Cancelled 61 BUN/Creatinine Ratio Cancelled 13.2 Glucose Cancelled 103 Calcium Cancelled 8.7 Troponin I High Sens Cancelled 10 Radiography Diagnostic Testing: Clinical Impression(s) from Imaging Studies Brain CT 07/01/23 14:45 IMPRESSION: Chronic involutional changes of the brain. of the brain. N.B. : The above Results were Read Back by Yobany Colon MD to Dany Tony and understanding confirmed on 07/01/2023 15:04:22 (ET). Electronically Signed: Yobany Colon MD at 15:05 EDT , ADDENDUM: 07/01/23 1512 IMPRESSION: Chronic involutional changes of the brain. of the brain. N.B. : The above Results were Read Back by Yobany Colon MD to Dany Tony and understanding confirmed on 07/01/2023 15:04:22 (ET). Electronically Signed: Yobany Colon MD at 15:05 EDT , Head/Neck CTA 07/01/23 14:46 IMPRESSION: Moderate atherosclerotic plaque at the origin of the right internal carotid artery causing approximately 50-69% narrowing. Atherosclerotic plaque formation at the origin of the left internal carotid artery causing greater than 70% narrowing. N.B. : The above Results were Read Back by Yobany Colon MD to Dr Cecily DO, and understanding confirmed on 07/01/2023 15:17:30 (ET). Electronically Signed: Yobany Colon MD at 15:18 EDT , ADDENDUM: 07/01/23 1525 IMPRESSION: Moderate atherosclerotic plaque at the origin of the right internal carotid artery causing approximately 50-69% narrowing. Atherosclerotic plaque formation at the origin of the left internal carotid artery causing greater than 70% narrowing. N.B. : The above Results were Read Back by Yobany Colon MD to Dr Cecily DO, and understanding confirmed on 07/01/2023 15:17:30 (ET). Electronically Signed: Yobany Colon MD at 15:18 EDT , Chest X-Ray 07/01/23 15:15 IMPRESSION: Mild increased markings at the lung bases worse on the left side suggestive bibasilar atelectasis and/or infiltrates. Blunting of the left costophrenic angle. Electronically Signed: Yobany Colon MD at 15:42 EDT , Discharge Plan Triage Chief Complaint: Neuro S/Sx ED Provider: Dany Tony Dx/Rx/DC Orders Prescriptions: No Action furosemide 40 mg tablet 40 mg PO DAILY amlodipine 5 mg tablet 5 mg PO DAILY PRN lisinopril 2.5 mg tablet 2.5 mg PO DAILY aspirin 81 MG tablet,chewable 81 mg PO DAILY@0800 cholecalciferol (vitamin D3) 2,000 UNIT capsule 2,000 unit PO DAILY carvedilol 25 MG tablet 25 mg PO BID 0RF Primary Care Provider: Hans Bran Chi Referrals: Hans Bran Chi, MD [Primary Care Provider] -
[2023-07-01 15:15] LABS: Absolute Lymphocyte Count 1.92 X10^3/uL (0.83-4.51); Absolute Neutrophil Count 4.7 X10^3/uL (2.0-7.7); Basophil# 0.04 X10^3/uL; Basophil% 0.5 % (0-1); Eosinophil# 0.42 X10^3/uL; Eosinophils% 5.4 % (0-5); Hematocrit 43.6 % (40-54); Hemoglobin 15.1 g/dL (13.0-16.5); Lymphocyte # 1.92 X10^3/ul (0.83-4.51); Lymphocyte % 24.6 % (19-41); Mean Corp Hgb Conc 34.6 g/dL (32-36); Mean Corpuscular Volume 100.9 fL (80-94); Mean Platelet Vol. 10.8 fl (6.2-12.0); Monocyte# 0.65 X10^3/uL; Monocyte% 8.3 % (0-10); NRBC Flagged by Analyzer 0 % (0-5); Neutrophil # 4.73 X10^3/uL (2.7-7.7); Neutrophil % 60.7 % (47-70); Platelet Count 210 K/mm3 (150-450); RBC Distribution Width CV 13.1 % (11.6-14.6); RBC Distribution Width SD 48.8 fl (35.1-43.9); Red Blood Count 4.32 M/mm3 (4.6-6.2); White Blood Count 7.8 K/mm3 (4.4-11.0)
--- NOTE | 2023-07-01 15:15 | RAD_ITS ---
STUDY: X-RAY CHEST REASON FOR EXAM: Male, 82 years old. Neuro deficit, acute, stroke suspected TECHNIQUE: Single AP portable view of the chest. COMPARISON: Comparison is made with prior study dated November 17, 2020. FINDINGS: EKG electrodes are seen. Mild increased markings at the lung bases likely worse on the left side suggestive of a bibasilar atelectasis and/or infiltrates. Blunting of the left costophrenic angle. Sternal cerclage wires and vascular clips are present from a prior sternotomy and coronary artery bypass graft procedure (CABG). Normal mediastinum and christine. Normal visualized pulmonary arteries. There is atherosclerotic calcification of the aortic arch with tortuosity. There are diffuse degenerative changes of the visualized thoracic spine. There is degenerative osteoarthritis of the bilateral shoulders. There is no demonstrated abnormality of the visualized soft tissue structures of the upper abdomen. RAD/Chest 1 View IMPRESSION: Mild increased markings at the lung bases worse on the left side suggestive bibasilar atelectasis and/or infiltrates. Blunting of the left costophrenic angle. Electronically Signed: Yobany Colon MD at 15:42 EDT ,
--- NOTE | 2023-07-01 15:15 | NURSING ---
1421 STROKE ALERT CALLED PRIOR TO ARRIVAL
[2023-07-01 15:27] LABS: Partial Thromboplast Time 31.6 Seconds (24.1-36.2); Prothrombin Time (Protime)PT. 12.8 SECONDS (11.7-14.9)
--- NOTE | 2023-07-01 15:38 | CHAPLAIN ---
Type of Pastoral Visit ___ Initial Visit ___ Follow-up Visit ___ On-call Visit ___ General Patient Visit ___ Spiritual Assessment ___ Family Conference ___ Bereavement _x__ Rapid Response ___ Code Blue ___ Other (describe below) Pastoral Care Referral From ___ Patient ___ Family ___ Nurse ___ Physician ___ Lining Cementer ___ Director Of Sustainability _x__ Other (describe below) Sacrament/Intervention ___ Active listening ___ Anointing ___ Restorationist ___ Bereavement ___ Communion ___ Francisca exploration ___ ___ Life review ___ Prayer ___ Reconciliation ___ Sacrament of Sick _x__ Supportive presence ___ Wedding ___ Other (describe below) Pastoral Comments responded to stroke alert and was present when patient arrived by squad; caregiver was also present; pt was able to talk; pt was taken to CT; at this time a Crystal Ziegler was called for another patient and this dixonac operator stepped aside to assist that situation; later came back to stroke patient who was then being prepped for evaluation by [facility] team
[2023-07-01 16:15] LABS: Anion Gap 2 (5-15); BUN 16 mg/dL (7-18); BUN/Creat Ratio 13.2 RATIO (10-20); Calcium,Total 8.7 mg/dL (8.5-10.1); Chloride 103 mmol/L (98-107); Creatinine, Serum 1.21 mg/dL (0.70-1.30); EST Glomerular Filtration Rate 61 mL/min (>60); Est Glom Filt Rate - Afr Amer 74 mL/min (>60); Estimated Creatinine Clearance 44.01 ml/min; Glucose 103 mg/dL (74-106); Potassium 3.8 mmol/L (3.5-5.1); Sodium Level 138 mmol/L (136-145); Troponin-I HS (w/2H Reflex) 10 pg/mL (3.0-78.0)
[2023-07-01 17:47] LABS: Reflex Troponin-HS? (from REC) Y
--- NOTE | 2023-07-01 18:12 | PCM.HP.STD ---
HPI - General General Date of Admission: 07/01/23 Date of Service: 07/01/23 Chief Complaint: LUE weakness. HPI Narrative The patient is an 82 y/o M w/ PMHx: Obesity, CAD status post CABG, BPH, Hx CVA, GERD, HTN, HLD, PCV, Hx rectal CA status postresection with colostomy, LEÓN, Chronic dementia of unclear type with unclear behavioral disturbance history who presents to the [facility] ED on 07/01/23 with history of onset of left upper extremity weakness, LUE ataxia, L sided facial droop with last known well per at approximately 9 AM prompting ED evaluation. NIHSS 3 upon ED presentation. Work-up in the ED included T97.8, heart rate 58, BP 151/69, respiratory rate 16, 95% on room air, CBC with WBC 7.8, hemoglobin 15.1, platelet 210 without marked shift, unremarkable coags, BMP with carbon oxide 33 otherwise not marked appearing, troponin 10, CT of the brain with chronic involutional changes with no acute intracranial findings, CTA head and neck with moderate atherosclerotic plaque at the origin of the right ICA causing approximately 50 to 69% narrowing, atherosclerotic plaque formation at the origin of the left ICA causing greater than 70% narrowing, chest x-ray with mild increased markings at the lung bases worse on the left side suggestive of bibasilar atelectasis versus infiltrates, blunting of the left costophrenic angle, EKG with SB with no acute evidence of ischemia. [facility] Medical History (Updated 07/01/23 @ 21:[address] Esther Peck MD) Atherosclerosis of coronary artery without angina pectoris BPH (benign prostatic hyperplasia) COVID-19 CVA (cerebral vascular accident) Dementia Essential (primary) hypertension Frequent falls GERD (gastroesophageal reflux disease) History of esophageal stricture Hyperlipidemia NSTEMI (non-ST elevated myocardial infarction) Obesity Obstructive sleep apnea Polycythemia vera Rectal cancer Home Medications aspirin 81 mg chewable tablet 81 mg PO DAILY@0800 Heart [facility] 12/24/14 [History Last Taken 10/04/18] cholecalciferol (vitamin D3) 50 mcg (2,000 unit) capsule 2,000 unit PO DAILY supple 07/08/20 [History Last Taken Unknown] carvedilol 25 mg tablet 25 mg PO BID hypokalemia 11/12/20 [Rx Last Taken Unknown] amlodipine 5 mg tablet 5 mg PO DAILY heart 03/27/21 [History Last Taken Unknown] furosemide 40 mg tablet 40 mg PO DAILY retention 03/27/21 [History Last Taken Unknown] lisinopril 2.5 mg tablet 2.5 mg PO DAILY htn 03/27/21 [History Last Taken Unknown] galantamine 16 mg 24 hr capsule,extended release mg PO . 07/01/23 [History Last Taken Unknown] memantine 10 mg tablet mg . 07/01/23 [History Last Taken Unknown] Allergy/AdvReac Type Severity Reaction Status Date / Time Penicillins AdvReac Unknown Verified 03/19/22 12:58 Family History Mother Breast cancer Father Heart disease Brother Myocardial infarction Surgical History H/O coronary artery bypass surgery (10/12/18) History of colon resection (2014) History of colostomy History of left heart catheterization (10/05/18) Social History (Updated 07/01/23 @ 21:[address] Esther Peck MD) household members: family Smoking Status: Former smoker how long ago did patient quit smokin alcohol intake: never substance use type: does not use caffeine: Yes ROS Review of Systems ROS Unobtainable: other Details: Secondary to underlying dementia unable to give accurate ROS. Vital Signs Vital Signs Vital Signs: 07/01/23 15:04 07/01/23 15:04 07/01/23 14:39 Temperature 97.8 F Temperature Source Temporal Pulse Rate 60 58 L Respiratory Rate 16 16 Blood Pressure 153/70 H 151/69 H Blood Pressure Mean 97 96 Pulse Ox 95 95 Oxygen Delivery Method Room Air Room Air Room Air 07/01/23 15:30 07/01/23 16:00 07/01/23 16:00 Temperature Temperature Source Pulse Rate 56 L 59 L 58 L Respiratory Rate 17 22 H 28 H Blood Pressure 159/79 H 141/80 H 141/80 H Blood Pressure Mean 105 100 100 Pulse Ox 94 94 95 Oxygen Delivery Method Room Air Room Air Room Air Weight Weight: 221 lb 5.506 oz Body Mass Index (BMI) 34.7 Physical Exam Narrative Physical Examination: General: Awake, alert, oriented to self and some events but does have significant underlying dementia, poor historian, remains cooperative, seated upright in the ED bed, fatigued appearing. Skin: Normal color, normal turgor, no icterus, no cyanosis except very staged ecchymoses primarily to the extremities. HEENT: AT/NC, EOMI, PERRLA, mildly dry MM,, very mild left-sided facial droop that corrects with smiling, no carotid bruits or JVD noted. Lungs: Diminished, greater bases, appropriate effort no rales, ronchi or wheezing. Heart: Regular rate and rhythm; no gallop, rub audible. Abdomen: Soft, obese, NTTP, ND, normal BS, no HSM. Extremities: No cyanosis, no clubbing, peripheral ankle swelling which is chronic family notes. Neurological: Patient awake, alert, oriented as noted, cognitive function diminished baseline with underlying dementia and they note that currently he seems intact; pupils equally reactive to light and accommodation, cranial nerves grossly normal except for noted mild left-sided facial droop although corrects with smiling to most agree, moving all 4 extremities however some difficulty with drift with the left with ataxic movement, difficulty with finger-nose left upper extremity, [id number] bilaterally seems appropriate but difficult to follow commands for this, equivocal Babinski. Psychiatric: Affect appears flat, fatigued, no acute evidence of depressive or anxiety feelings. Results Lab / Micro Data 07/01/23 15:00 07/01/23 15:40 Labs: Laboratory Results - last 24 hr 07/01/23 15:00: WBC 7.8, RBC 4.32 L, Hgb 15.1, Hct 43.6, MCV 100.9 H, MCH 35.0 H, MCHC 34.6, RDW Std Deviation 48.8 H, RDW Coeff of Kush 13.1, Plt Count 210, MPV 10.8, Immature Gran % (Auto) 0.500, Neut % (Auto) 60.7, Lymph % (Auto) 24.6, [place] % (Auto) 8.3, Eos % (Auto) 5.4 H, Baso % (Auto) 0.5, Absolute Neuts (auto) 4.7, Absolute Lymphs (auto) 1.92, Nucleated RBC % 0, PT 12.8, INR 1.0, APTT 31.6, Sodium Cancelled, Potassium Cancelled, Chloride Cancelled, Carbon Dioxide Cancelled, Anion Gap Cancelled, BUN Cancelled, Creatinine Cancelled, Estim Creat Clear Calc Cancelled, Est GFR (MDRD) Af Amer Cancelled, Est GFR (MDRD) Non-Af Cancelled, BUN/Creatinine Ratio Cancelled, Glucose Cancelled, Calcium Cancelled, Troponin I High Sens Cancelled 07/01/23 15:40: Sodium 138, Potassium 3.8, Chloride 103, Carbon Dioxide 33.0 H, Anion Gap 2 L, BUN 16, Creatinine 1.21, Estim Creat Clear Calc 44.01, Est GFR (MDRD) Af Amer 74, Est GFR (MDRD) Non-Af 61, BUN/Creatinine Ratio 13.2, Glucose 103, Calcium 8.7, Troponin I High Sens [address] 07/01/23 14:45 IMPRESSION: Chronic involutional changes of the brain. of the brain. N.B. : The above Results were Read Back by Yobany Colon MD to Dany Tony and understanding confirmed on 07/01/2023 15:04:22 (ET). Electronically Signed: Yobany Colon MD at 15:05 EDT , ADDENDUM: 07/01/23 1512 IMPRESSION: Chronic involutional changes of the brain. of the brain. N.B. : The above Results were Read Back by Yobany Colon MD to Dany Tony and understanding confirmed on 07/01/2023 15:04:22 (ET). Electronically Signed: Yobany Colon MD at 15:05 EDT , Head/Neck CTA 07/01/23 14:46 IMPRESSION: Moderate atherosclerotic plaque at the origin of the right internal carotid artery causing approximately 50-69% narrowing. Atherosclerotic plaque formation at the origin of the left internal carotid artery causing greater than 70% narrowing. N.B. : The above Results were Read Back by Yobany Colon MD to Dr Cecily DO, and understanding confirmed on 07/01/2023 15:17:30 (ET). Electronically Signed: Yobany Colon MD at 15:18 EDT , ADDENDUM: 07/01/23 1525 IMPRESSION: Moderate atherosclerotic plaque at the origin of the right internal carotid artery causing approximately 50-69% narrowing. Atherosclerotic plaque formation at the origin of the left internal carotid artery causing greater than 70% narrowing. N.B. : The above Results were Read Back by Yobany Colon MD to Dr Cecily DO, and understanding confirmed on 07/01/2023 15:17:30 (ET). Electronically Signed: Yobany Colon MD at 15:18 EDT , Chest X-Ray 07/01/23 15:15 IMPRESSION: Mild increased markings at the lung bases worse on the left side suggestive bibasilar atelectasis and/or infiltrates. Blunting of the left costophrenic angle. Electronically Signed: Yobany Colon MD at 15:42 EDT , Assessment & Plan Assessment/Plan (1) CVA (cerebral vascular accident): PLAN: Plan The patient is an 82 y/o M w/ PMHx: Obesity, CAD status post CABG, BPH, Hx CVA, GERD, HTN, HLD, PCV, Hx rectal CA status postresection with colostomy, LEÓN, Chronic dementia of unclear type with unclear behavioral disturbance history who presents to the [facility] ED on 07/01/23 with history of onset of left upper extremity weakness with last known well per at approximately 9 AM prompting ED evaluation. #1. Left upper extremity weakness, LUE ataxia, L sided facial droop concerning for Acute CVA w/ Hx prior CVA with significant rotted disease noted: Will admit to PCU, will obtain MRI Brain, ECHO previously performed with prior CVA with negative bubble per report thus will defer repeat, PT/OT/Speech/Nutrition evaluation per protocol. Will allow permissive HTN, maintain on asa, add plavix, add low-dose statin w/ AM FLP, fall precautions. Given significant CTA carotid disease noted will obtain carotid ultrasound and following this result may need to consider involvement of vascular surgery or early follow-up outpatient. Mag, TSH, FLP, HgbA1c requested. Maintain on fall and aspiration precautions. Once work-up obtained low threshold to obtain Neurology consultation. #2. CAD: Status post CABG, continue aspirin, adding Plavix given presentation temporally, adding at least low-dose statin, holding Coreg and lisinopril for permissive hypertension temporarily. #3. Polycythemia vera: Admission CBC with hemoglobin 15.1, MCV 100.9, will trend CBC. #4. Chronic dementia of unclear type with unclear behavioral disturbance history: Complicates presentation, maintain on fall and aspiration precautions, PT/OT/case management consulted for discharge planning, will continue patient home memantine and galantamine regimen. #5. Hypertension: We will maintain permissive hypertension given presentation with parent agents per stroke protocol. #6. Hyperlipidemia: We will add low-dose statin, FLP in AM. #7. Obesity: Weight loss and lifestyle changes encouraged. #8. History of rectal cancer: Status postresection with colostomy, considered in remission. #9. GERD: We will have as needed Mylanta. #10. LEÓN: CPAP nightly. #11. DVT prophylaxis: Lovenox. #12. CODE status: Patient BRYAN is his daughter Bertha. Discussed CODE status at length including difference between FULL code, DNR-CCA and DNR-CC status. Following discussions about the differences in these status, requested DNR-CC status but is amenable to evaluation of his current presentation. Advanced Care Planning Face to Face Time: 16 minutes. Charges/Coding Visit Charges Inpatient E&M: 77385 Init Hosp L3 Procedures Hospitalists Procedures: 75470 Advncd Care Plan 30 Min
[2023-07-01] MEDS: Aspirin 325 MG Tablet PO (18:55)
[2023-07-01 18:58] LABS: Troponin-I HS 10 pg/mL (3.0-78.0)
--- NOTE | 2023-07-01 20:49 | CDU_ITS ---
Reason For Study: TIA Rt. Velocities/BP Lt. Velocities/BP Prox CCA 75.9/14.5 cm/sec. Prox CCA 133.9/15.2 cm/sec. Mid CCA 112.1/22.5 cm/sec. Mid CCA 137.5/24.3 cm/sec. Dist CCA 90.0/21.2 cm/sec. Dist CCA 102.8/13.3 cm/sec. Prox ICA 84.4/21.1 cm/sec. Prox ICA 187.2/20.4 cm/sec. Mid ICA 72.1/17.3 cm/sec. Mid ICA 83.9/22.5 cm/sec. Dist ICA 54.1/13.5 cm/sec. Dist ICA 75.3/17.6 cm/sec. Rt. ICA/CCA = 0.8. Lt. ICA/CCA = 1.4. Prox ECA 121.1/9.7 cm/sec. Prox ECA 148.5/13.3 cm/sec. Rt. Vert. 25.1/8.8 cm/sec. Lt. Vert. 40.9/9.7 cm/sec. Right Extracranial There is heterogeneous, irregular atherosclerotic plaque noted in the right common carotid artery. There is heterogeneous, irregular atherosclerotic plaque noted in the right internal carotid artery. The atherosclerotic plaque causes acoustic shadowing. There is heterogeneous, irregular atherosclerotic plaque noted in the right external carotid artery. Antegrade flow is noted in the right vertebral artery. Left Extracranial There is heterogeneous, irregular atherosclerotic plaque noted in the left common carotid artery. There is heterogeneous, irregular atherosclerotic plaque noted in the left internal carotid artery. The atherosclerotic plaque causes acoustic shadowing. There is heterogeneous, irregular atherosclerotic plaque noted in the left external carotid artery. Antegrade flow is noted in the left vertebral artery. Procedure Carotid Duplex [id number]. This is a Carotid Duplex examination using B-mode, color flow and specral Doppler. The study was technically difficult. Exam performed portable in patient room. VL/Carotid Duplex Ultrasound Interpretation Summary Mild (<50%) stenosis right extracranial internal carotid. Moderate (50-69%) stenosis left extracranial internal carotid. Patent and antegrade vertebrals bilaterally. Ordering Physician: Esther Peck Performed By: Dewey Momin RVT
[2023-07-01] MEDS: Atorvastatin Calcium 10 MG Tablet PO (23:40)
[2023-07-01] MEDS: Galantamine Hydrobromide 4 MG Tablet 8 MG PO (23:41)
[2023-07-01] MEDS: 0.9% Normal Saline (1000mL) 1,000 ML 100 ML IV (23:51)
[2023-07-02] VITALS (7 sets, daily range): BP systolic 147–180; BP diastolic 68–83; PULSE 60–70; RESP 18; TEMP 36.4–36.8; O2SAT 92–96; BMI 33.1
[2023-07-02 07:11] LABS: Absolute Lymphocyte Count 1.69 X10^3/uL (0.83-4.51); Absolute Neutrophil Count 5.2 X10^3/uL (2.0-7.7); Basophil# 0.05 X10^3/uL; Basophil% 0.6 % (0-1); Eosinophil# 0.57 X10^3/uL; Eosinophils% 7.1 % (0-5); Hematocrit 42.6 % (40-54); Hemoglobin 14.5 g/dL (13.0-16.5); Lymphocyte # 1.69 X10^3/ul (0.83-4.51); Lymphocyte % 21.2 % (19-41); Mean Corpuscular Hgb 33.9 pg (27.0-32.0); Mean Corpuscular Volume 99.5 fL (80-94); Mean Platelet Vol. 10.5 fl (6.2-12.0); Monocyte# 0.49 X10^3/uL; Monocyte% 6.1 % (0-10); NRBC Flagged by Analyzer 0 % (0-5); Neutrophil # 5.16 X10^3/uL (2.7-7.7); Neutrophil % 64.6 % (47-70); Platelet Count 177 K/mm3 (150-450); RBC Distribution Width SD 47.4 fl (35.1-43.9); Red Blood Count 4.28 M/mm3 (4.6-6.2)
[2023-07-02 07:48] LABS: Hemoglobin A1c 5.9 % (3.8-5.6)
[2023-07-02 07:49] LABS: ALB/GLOB Ratio 0.9 RATIO (0.9-2.4); AST(SGOT) 15 U/L (15-37); Alanine Aminotransfer ALT/SGPT 23 U/L (16-61); Alkaline Phosphatase 104 U/L (45-117); Anion Gap 5 (5-15); BUN 15 mg/dL (7-18); BUN/Creat Ratio 13.8 RATIO (10-20); Calcium,Total 8.5 mg/dL (8.5-10.1); Chloride 108 mmol/L (98-107); Cholesterol 234 mg/dL (200); Creatinine, Serum 1.09 mg/dL (0.70-1.30); EST Glomerular Filtration Rate 69 mL/min (>60); Est Glom Filt Rate - Afr Amer 83 mL/min (>60); Estimated Creatinine Clearance 48.85 ml/min; Globulin 3.3 g/dL (2.2-4.2); Glucose 124 mg/dL (74-106); High Density Lipoprotein 33 mg/dL; Potassium 3.4 mmol/L (3.5-5.1); Protein, Total 6.3 g/dL (6.4-8.2); Sodium Level 140 mmol/L (136-145); Thyroid Stim Hormone (TSH) 2.68 uIU/mL (0.358-3.74); Triglycerides 187 mg/dL; Very Low Density Lipoprotein 37 mg/dL (5-40)
--- NOTE | 2023-07-02 08:54 | PN.HOSP_ITS ---
Reason for Visit Reason for Visit: Diagnoses Cerebral infarction, unspecified (07/01/23) Objective Data Objective Data Vital Signs: Vital Signs Temp Pulse Resp BP Pulse Ox O2 Del Method 97.5 F L 60 18 180/83 H 95 Room Air 07/02/23 05:00 07/02/23 05:00 07/02/23 05:00 07/02/23 05:00 07/02/23 05:00 07/02/23 05:00 Oxygen Delivery Method Room Air Weight: 211 lb 10.3 oz Body Mass Index (BMI) 33.1 Intake & Output: Intake and Output for Last 24 Hours 06/30/23 07/01/23 07/02/23 23:59 23:59 23:59 Intake Total 545 / 545 Output Total 0 / 0 Balance 0 / 0 545 / 545 Lab / Micro Data 07/02/23 07:05 07/02/23 07:05 Labs: Laboratory Results - last 24 hr 07/01/23 15:00: WBC 7.8, RBC 4.32 L, Hgb 15.1, Hct 43.6, MCV 100.9 H, MCH 35.0 H , MCHC 34.6, RDW Std Deviation 48.8 H, RDW Coeff of Kush 13.1, Plt Count 210, MPV 10.8, Immature Gran % (Auto) 0.500, Neut % (Auto) 60.7, Lymph % (Auto) 24.6, [place] % (Auto) 8.3, Eos % (Auto) 5.4 H, Baso % (Auto) 0.5, Absolute Neuts (auto) 4.7, Absolute Lymphs (auto) 1.92, Nucleated RBC % 0, PT 12.8, INR 1.0, APTT 31.6, Sodium Cancelled, Potassium Cancelled, Chloride Cancelled, Carbon Dioxide Cancelled, Anion Gap Cancelled, BUN Cancelled, Creatinine Cancelled, Estim Creat Clear Calc Cancelled, Est GFR (MDRD) Af Amer Cancelled, Est GFR (MDRD) Non-Af Cancelled, BUN/Creatinine Ratio Cancelled, Glucose Cancelled, Calcium Cancelled, Troponin I High Sens Cancelled 07/01/23 15:40: Sodium 138, Potassium 3.8, Chloride 103, Carbon Dioxide 33.0 H, Anion Gap 2 L, BUN 16, Creatinine 1.21, Estim Creat Clear Calc 44.01, Est GFR (MDRD) Af Amer 74, Est GFR (MDRD) Non-Af 61, BUN/Creatinine Ratio 13.2, Glucose 103, Calcium 8.7, Troponin I High Sens 10 07/01/23 18:27: Magnesium 2.0, Troponin I High Sens 10 07/02/23 07:05: WBC 8.0, RBC 4.28 L, Hgb 14.5, Hct 42.6, MCV 99.5 H, MCH 33.9 H, MCHC 34.0, RDW Std Deviation 47.4 H, RDW Coeff of Kush 13.0, Plt Count 177, MPV 10.5, Immature Gran % (Auto) 0.400, Neut % (Auto) 64.6, Lymph % (Auto) 21.2, [place] % (Auto) 6.1, Eos % (Auto) 7.1 H, Baso % (Auto) 0.6, Absolute Neuts (auto) 5.2, Absolute Lymphs (auto) 1.69, Nucleated RBC % 0, Sodium 140, Potassium 3.4 L , Chloride 108 H, Carbon Dioxide 27.0, Anion Gap 5, BUN 15, Creatinine 1.09, Estim Creat Clear Calc 48.85, Est GFR (MDRD) Af Amer 83, Est GFR (MDRD) Non-Af 69, BUN/Creatinine Ratio 13.8, Glucose 124 H, Hemoglobin A1c 5.9 H, Calcium 8.5, Total Bilirubin 0.50, AST 15, ALT 23, Alkaline Phosphatase 104, Total Protein 6.3 L, Albumin 3.0 L, Globulin 3.3, Albumin/Globulin Ratio 0.9, Triglycerides 187, Cholesterol 234 H, LDL Cholesterol 164 H, VLDL Cholesterol 37, HDL Cholesterol 33 L, TSH 2.68 Radiography Diagnostic Testing: Radiology Impression Brain CT 07/01/23 14:45 IMPRESSION: Chronic involutional changes of the brain. of the brain. N.B. : The above Results were Read Back by Yobany Colon MD to Dany Tony and understanding confirmed on 07/01/2023 15:04:22 (ET). Electronically Signed: Yobany Colon MD at 15:05 EDT , ADDENDUM: 07/01/23 1512 IMPRESSION: Chronic involutional changes of the brain. of the brain. N.B. : The above Results were Read Back by Yobany Colon MD to Dany Tony and understanding confirmed on 07/01/2023 15:04:22 (ET). Electronically Signed: Yobany Colon MD at 15:05 EDT , Head/Neck CTA 07/01/23 14:46 IMPRESSION: Moderate atherosclerotic plaque at the origin of the right internal carotid artery causing approximately 50-69% narrowing. Atherosclerotic plaque formation at the origin of the left internal carotid artery causing greater than 70% narrowing. N.B. : The above Results were Read Back by Yobany Colon MD to Dr Cecily DO, and understanding confirmed on 07/01/2023 15:17:30 (ET). Electronically Signed: Yobany Colon MD at 15:18 EDT , ADDENDUM: 07/01/23 1525 IMPRESSION: Moderate atherosclerotic plaque at the origin of the right internal carotid artery causing approximately 50-69% narrowing. Atherosclerotic plaque formation at the origin of the left internal carotid artery causing greater than 70% narrowing. N.B. : The above Results were Read Back by Yobany Colon MD to Dr Cecily DO, and understanding confirmed on 07/01/2023 15:17:30 (ET). Electronically Signed: Yobany Colon MD at 15:18 EDT , Chest X-Ray 07/01/23 15:15 IMPRESSION: Mild increased markings at the lung bases worse on the left side suggestive bibasilar atelectasis and/or infiltrates. Blunting of the left costophrenic angle. Electronically Signed: Yobany Colon MD at 15:42 EDT , Physical Exam Narrative Physical Examination: General: Awake. Disoriented to place and person. HEENT: Atraumatic, PERRLA, EOMI, Normocephalic Oral: No Gingival or Mucosal Lesions/ Ulcerations Neck: Supple, No JVD, Negative Carotid Bruits Lungs: Air entry diminished in bilateral lung bases. No crepitation/rhonchi Cardiovascular: Regular rate, Regular Rhythm, Normal S1, Normal S2, systplic murmurs Abdomen: Bowel Sounds Present, Soft, Non Tender, Non-Distended. Colostomy with semisolid fecal matter. : No renal angle tenderness. No suprapubic tenderness. Extremities: No edema, Capillary Refill Less than 3 Seconds Skin: No rashes, No breakdown Musculoskeletal: No Tenderness to Palpation of Joints or Extremities Neurological: Mild facial paralysis. Left arm drift. NIHSS 4. Disoriented. Psych/Mental Status: Flat affect. 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 #1. Left upper extremity weakness, LUE ataxia, L sided facial droop concerning for Acute CVA w/ Hx prior CVA: Patient is being admitted in PCU. PT, OT, speech therapy/swallow evaluation and management, nursing NIH stroke scale, BP and glucose monitoring and control as per stroke protocol. MRI brain shows subacute lacunar ischemic infarcts in the right periventricular white matter. A1c 5.9%. SOC neurology consult. Aspirin Plavix and high intensity statin. #2. CAD: Status post CABG, continue aspirin, adding Plavix given presentation temporally, adding at least low-dose statin, holding Coreg and lisinopril for permissive hypertension temporarily. #3. Polycythemia vera: Admission CBC with hemoglobin 15.1, MCV 100.9, hemoglobin 14.5% #4. Chronic dementia of unclear type with unclear behavioral disturbance history: Complicates presentation, maintain on fall and aspiration precautions, PT/OT/case management consulted for discharge planning, will continue patient home memantine and galantamine regimen. #5. Hypertension: maintain permissive hypertension given presentation with parent agents per stroke protocol. #6. Hyperlipidemia: We will add low-dose statin, FLP, LDL 164, TG 187, HDL 33 #7. Obesity: Weight loss and lifestyle changes encouraged. #8. History of rectal cancer: Status postresection with colostomy, considered in remission. #9. GERD: We will have as needed Mylanta. #10. LEÓN: CPAP nightly. #11. DVT prophylaxis: Lovenox. #12. CODE status: Patient BRYAN is his daughter Bertha. Discussed CODE status at length including difference between FULL code, DNR-CCA and DNR-CC status. Following discussions about the differences in these status, requested DNR-CC status but is amenable to evaluation of his current presentation. Clinical Impression(s) from Imaging Studies Brain CT 07/01/23 14:45 IMPRESSION: Chronic involutional changes of the brain. of the brain. Head/Neck CTA 07/01/23 14:46 IMPRESSION: Moderate atherosclerotic plaque at the origin of the right internal carotid artery causing approximately 50-69% narrowing. Atherosclerotic plaque formation at the origin of the left internal carotid artery causing greater than 70% narrowing. Chest X-Ray 07/01/23 15:15 IMPRESSION: Mild increased markings at the lung bases worse on the left side suggestive bibasilar atelectasis and/or infiltrates. Blunting of the left costophrenic angle. Brain MRI 07/02/23 09:30 IMPRESSION: 1. Subacute lacunar ischemic infarcts in the right periventricular white matter. 2. Cystic atrophy of both temporal poles, right gyrus rectus and right middle frontal gyrus are from remote injury. 3. Multiple confluent chronic white matter ischemic changes in both cerebral hemispheres.. Charges/Coding Addendum Addendum: Total time of the visit including total time spent in counseling or coordination of care, (more than 50% of the total time, spent in obtaining medical information from nurses and other ancillary care providers,explaining to the patient about labs, imaging, diagnosis and management of active complex medical conditions), discussion with power of district attorney regarding diagnosis, and advanced directive, review of labs and imaging is 45 minutes. Visit Charges Inpatient E&M: 62847 Subs Hosp L3
--- NOTE | 2023-07-02 09:30 | MRI_ITS ---
We are attempting to reach an attending provider to discuss findings. An addendum with communication details will be sent when the communication is complete. EXAM: MR HEAD WITHOUT INTRAVENOUS CONTRAST CLINICAL INDICATION: CVA, LUE WEAKNESS, DEMENTIA TECHNIQUE: Multiplanar and multisequence MR images of the brain were obtained without intravenous contrast. COMPARISON: CT head without contrast and CTA head and neck with contrast 07/01/2023. FINDINGS: BRAIN AND EXTRA-AXIAL SPACES: Small diffusion restrictions in the right periventricular white matter are also visible on the T2 FLAIR sequence. They are subacute lacunar ischemic infarcts. Multiple confluent T2 FLAIR hyperintensity foci in the white matter of both cerebral hemispheres are chronic white matter ischemic changes. Disproportionate dilatation of the third and lateral ventricles due to cerebral atrophy, central and cortical. Normal cerebral aqueduct and fourth ventricle. No communicating or noncommunicating hydrocephalus. Cystic atrophy of both temporal poles, right greater than left, the right gyrus rectus and the right medial orbital gyrus. No intra- or extra-axial hemorrhage. No intracranial mass or mass effect. Posterior fossa structures are unremarkable. Basal cisterns are patent. SELLA: Unremarkable. Normal sella turcica, pituitary gland, infundibular stalk, optic chiasm and hypothalamus. AUDITORY SYSTEM: Unremarkable. The internal auditory canals are patent. BONES/JOINTS: Unremarkable. No discrete lytic or blastic abnormalities. SINUSES: Unremarkable as visualized. Clear. MASTOID AIR CELLS: Unremarkable as visualized. Clear. ORBITS: See above. VASCULATURE: Unremarkable as visualized. Normal flow voids in the major intracranial circulation. MRI/Brain without Contrast IMPRESSION: 1. Subacute lacunar ischemic infarcts in the right periventricular white matter. 2. Cystic atrophy of both temporal poles, right gyrus rectus and right middle frontal gyrus are from remote injury. 3. Multiple confluent chronic white matter ischemic changes in both cerebral hemispheres.. Electronically Signed: Manjit Noriega MD at 14:16 EDT ,
[2023-07-02] MEDS: Memantine Hydrochloride 10 MG Tablet PO (09:31)
[2023-07-02] MEDS: Enoxaparin 40 MG/0.4 ML Syringe SC (09:31)
[2023-07-02] MEDS: Galantamine Hydrobromide 4 MG Tablet 8 MG PO ×2 (09:32→23:25)
[2023-07-02] MEDS: Aspirin 81 MG TAB.CHEW PO (09:32)
[2023-07-02] MEDS: Clopidogrel Bisulfate 75 MG Tablet PO (09:32)
[2023-07-02] MEDS: Menthol/Lanolin/Calamine/Znox 113 GM Tube 1 APPLIC TOPICAL ×4 (09:34→23:18)
--- NOTE | 2023-07-02 10:46 | CASEMGMT ---
Discharge Planning A list of SNF providers including quality and resource use data and consistent with the patient?s preferred geographic region, medical needs, and insurance network was created in [facility] Guide. This list was provided to the SW. Elmira Gaxiola Discharge Planning Asst.
--- NOTE | 2023-07-02 11:30 | CASEMGMT ---
WON HO Face to Face with patient for initial transition planning/care coordination assessment. RN CM introduced self and role at [facility]. Patient lying in bed, alert and confused, daughter Katherine at bedside. Patient and daughter willing to participate in assessment and is able to answer all questions appropriately. Care providers, pharmacy, and demographics verified. Daughter wishes for patient to discharge home and voiced interest in hospice at discharge. Daughter states she has no further needs or concerns at this time. CM to follow for discharge planning needs that may arise. PCP: [facility] Specialists: none Preferred Pharmacy: [facility] Insurance: [facility] Prescription Benefit: none Living Will/HPOA: yes, daughter Bertha June LNOK: daughters x3 Living Arrangements: Patient lives with daughter Katherine in a single story home with no steps to enter. Daughter assists patient with ADL Transportation: friend DME/HHC: Patient has shower chair, raised toilet, hospital bed, lift chair, grab bars, walker, rollator, wheelchair, own oxygen concentrator, pulse ox. Patient has been to [facility] and [facility] in the past. Disposition Plan: TBD, hospitalist and SW updated regarding hospice referral request. Echo PANDA, RN, CM
--- NOTE | 2023-07-02 12:53 | CHAPLAIN ---
Type of Pastoral Visit ___ Initial Visit _x__ Follow-up Visit ___ On-call Visit ___ General Patient Visit ___ Spiritual Assessment ___ Family Conference ___ Bereavement ___ Rapid Response ___ Code Blue ___ Other (describe below) Pastoral Care Referral From ___ Patient _x__ Family ___ Nurse ___ Physician ___ Young Adult Librarian ___ Architectural Design Professor ___ Other (describe below) Sacrament/Intervention _x__ Active listening ___ Anointing ___ Congregational ___ Bereavement ___ Communion ___ Francisca exploration ___ _x__ Life review _x__ Prayer ___ Reconciliation ___ Sacrament of Sick ___ Supportive presence ___ Wedding ___ Other (describe below) Pastoral Comments was present in ED for stroke alert on this patient; this was first face to face with him; daughter is also in the room with him; pt talks but has some slurred speech; pt talks about his life; pt is waiting on results from tests; pt received lunch tray; pt welcomes prayer for his health and his food; daughter expresses thanks for the visit and the prayers
--- NOTE | 2023-07-02 14:39 | CASEMGMT ---
JIMMY spoke with patient's daughter Katherine. Introduced self and role at [facility]. Originally Katherine thought Hospice for patient. However, when she saw therapy work with patient she wondered if he would benefit from rehab. JIMMY then spoke with patient's daughter, Bertha who is also the POA. Bertha was in agreement with patient going somewhere for rehab. She was okay with [place], [place], and [facility]. (no particular order) She declined a list. Bertha asked that JIMMY keep her updated. JIMMY then spoke with Katherine and let her know Bertha is in agreement with [facility] for rehab. Referrals will be sent to [facility]. JIMMY asked Elmira d/c sales planning analyst to please send referrals. Plan: SNF pending acceptance. Bertha LIZARRAGA
--- NOTE | 2023-07-02 15:19 | CASEMGMT ---
Discharge Planning Referral sent to [facility] and [facility] via [facility]. Elmira Gaxiola, Discharge Planning Asst.
--- NOTE | 2023-07-02 16:43 | CASEMGMT ---
JIMMY let patient and his daughter Katherine know that JIMMY has not heard back from [facility] or [facility] [place] yet. Bertha Mishra MAIL HANDLER CHEMICAL PROCESS EQUIPMENT OPERATOR
[2023-07-02] MEDS: Ensure Plus High Protein 120 ML LIQUID PO (17:08)
[2023-07-02] MEDS: Potassium Chloride Oral Tablet 20 MEQ 40 MEQ PO (18:48)
[2023-07-02] MEDS: Lactated Ringers 1,000 ML 100 ML IV (23:13)
[2023-07-02] MEDS: Atorvastatin Calcium 80 MG Tablet PO (23:25)
[2023-07-03 03:01] VITALS: BP 169/77; PULSE 70; RESP 18; TEMP 36.5; O2SAT 93
[2023-07-03 03:06] VITALS: BMI 33.2
--- NOTE | 2023-07-03 04:25 | CPS ---
Unable to discuss with pt CPAP and setting, pt is not good historian. CPAP not set up.
[2023-07-03 06:47] VITALS: BP 179/86; PULSE 61; RESP 18; TEMP 36.4; O2SAT 93
[2023-07-03] MEDS: Lactated Ringers 1,000 ML 100 ML IV (08:40)
[2023-07-03] MEDS: 0.9% Saline Lock 10 ML Syringe IV (08:41)
[2023-07-03] MEDS: Ensure Plus High Protein 120 ML LIQUID PO ×2 (08:43→13:17)
[2023-07-03] MEDS: Menthol/Lanolin/Calamine/Znox 113 GM Tube 1 APPLIC TOPICAL (08:47)
[2023-07-03] MEDS: Enoxaparin 40 MG/0.4 ML Syringe SC (08:48)
--- NOTE | 2023-07-03 09:51 | PCM.PN.HOSP ---
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 (07/01/23) Cerebral infarction, unspecified (07/01/23) Objective Data Objective Data Vital Signs: Vital Signs Temp Pulse Resp BP Pulse Ox O2 Del Method 97.5 F L 61 18 179/86 H 93 Room Air 07/03/23 06:47 07/03/23 06:47 07/03/23 06:47 07/03/23 06:47 07/03/23 06:47 07/03/23 09:04 Oxygen Delivery Method Room Air Weight: 212 lb 1.355 oz Body Mass Index (BMI) 33.2 Intake & Output: Intake and Output for Last 24 Hours 07/01/23 07/02/23 07/03/23 23:59 23:59 23:59 Intake Total 1285 / 1285 945 / 945 Output Total 0 / 0 200 / 200 650 / 650 Balance 0 / 0 1085 / 1085 295 / 295 Lab / Micro Data 07/02/23 07:05 07/02/23 07:05 Radiography Diagnostic Testing: Radiology Impression Brain MRI 07/02/23 09:30 IMPRESSION: 1. Subacute lacunar ischemic infarcts in the right periventricular white matter. 2. Cystic atrophy of both temporal poles, right gyrus rectus and right middle frontal gyrus are from remote injury. 3. Multiple confluent chronic white matter ischemic changes in both cerebral hemispheres.. Electronically Signed: Manjit Noriega MD at 14:16 EDT , ADDENDUM: 07/02/23 1432 IMPRESSION: 1. Subacute lacunar ischemic infarcts in the right periventricular white matter. 2. Cystic atrophy of both temporal poles, right gyrus rectus and right middle frontal gyrus are from remote injury. 3. Multiple confluent chronic white matter ischemic changes in both cerebral hemispheres.. N.B. : The above Results were Read Back by Manjit Noriega MD to Vanessa Rosas RN, and understanding confirmed on 07/02/2023 14:25:27 (ET). Electronically Signed: Manjit Noriega MD at 14:16 EDT , Physical Exam Narrative Patient is intermittently confused I think it is chronic possible dementia. Does not remember that I have seen him yesterday. He remembers his daughter's name. Physical Examination: General: Awake. Disoriented to place and person. HEENT: Atraumatic, PERRLA, EOMI, Normocephalic Oral: Oral mucosa moist. No Gingival or Mucosal Lesions/ Ulcerations Neck: Supple, No JVD, Negative Carotid Bruits Lungs: Air entry diminished in bilateral lung bases. No crepitation/rhonchi Cardiovascular: Regular rate, Regular Rhythm, Normal S1, Normal S2, systolic murmurs Abdomen: Bowel Sounds Present, Soft, Non Tender, Non-Distended. Colostomy with semisolid fecal matter. : No renal angle tenderness. No suprapubic tenderness. Extremities: No edema, Capillary Refill Less than 3 Seconds Skin: No rashes, No breakdown Musculoskeletal: No Tenderness to Palpation of Joints or Extremities Neurological: Mild facial paralysis. Left arm drift. NIHSS 4. Disoriented. Chronic lower extremity weakness with drift 4/5. Psych/Mental Status: Flat affect. 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 #1. Left upper extremity weakness, LUE ataxia, L sided facial droop concerning for Acute CVA w/ Hx prior CVA with bilateral carotid stenosis: Patient is being admitted in PCU. PT, OT, speech therapy/swallow evaluation and management, nursing NIH stroke scale, BP and glucose monitoring and control as per stroke protocol. MRI brain shows subacute lacunar ischemic infarcts in the right periventricular white matter. A1c 5.9%. SOC neurology consult. Aspirin Plavix and high intensity statin. 07/03: SOC consult reviewed. Recommended outpatient vascular surgery consult to review ICA stenosis but patient does not need acute surgical intervention. Left ICA is more than 70% stenosis in right ICA 50 to 69% stenosis. #2. CAD: Status post CABG, continue aspirin, adding Plavix given presentation temporally, adding at least low-dose statin, holding Coreg and lisinopril for permissive hypertension temporarily. #3. Polycythemia vera: Admission CBC with hemoglobin 15.1, MCV 100.9, hemoglobin 14.5% #4. Chronic dementia of unclear type with unclear behavioral disturbance history: Complicates presentation, maintain on fall and aspiration precautions, PT/OT/case management consulted for discharge planning, will continue patient home memantine and galantamine regimen. #5. Hypertension: maintain permissive hypertension given presentation with parent agents per stroke protocol. #6. Hyperlipidemia: We will add low-dose statin, FLP, LDL 164, TG 187, HDL 33 #7. Obesity: Weight loss and lifestyle changes encouraged. #8. History of rectal cancer: Status postresection with colostomy, considered in remission. #9. GERD: We will have as needed Mylanta. #10. LEÓN: CPAP nightly. #11. DVT prophylaxis: Lovenox. #12. CODE status: Patient BRYAN is his daughter Bertha. Discussed CODE status at length including difference between FULL code, DNR-CCA and DNR-CC status. Following discussions about the differences in these status, requested DNR-CC status but is amenable to evaluation of his current presentation. Clinical Impression(s) from Imaging Studies Brain CT 07/01/23 14:45 IMPRESSION: Chronic involutional changes of the brain. of the brain. Head/Neck CTA 07/01/23 14:46 IMPRESSION: Moderate atherosclerotic plaque at the origin of the right internal carotid artery causing approximately 50-69% narrowing. Atherosclerotic plaque formation at the origin of the left internal carotid artery causing greater than 70% narrowing. Chest X-Ray 07/01/23 15:15 IMPRESSION: Mild increased markings at the lung bases worse on the left side suggestive bibasilar atelectasis and/or infiltrates. Blunting of the left costophrenic angle. Brain MRI 07/02/23 09:30 IMPRESSION: 1. Subacute lacunar ischemic infarcts in the right periventricular white matter. 2. Cystic atrophy of both temporal poles, right gyrus rectus and right middle frontal gyrus are from remote injury. 3. Multiple confluent chronic white matter ischemic changes in both cerebral hemispheres.. Charges/Coding Visit Charges Inpatient E&M: 32048 Subs Hosp L2
--- NOTE | 2023-07-03 09:52 | ECHOCS_ITS ---
Reason For Study: CVA Procedure This was a 2D Doppler, Color Flow transthoracic echocardiogram. The study was technically difficult. Contrast injection was performed. Exam performed portable in patient room. Left Ventricle Normal LV size. The estimated ejection fraction is 60 %. No evidence for diastolic dysfunction. No regional wall motion abnormalities noted. Right Ventricle Normal RV size. Normal systolic function. Atria Normal left atrium. Normal right atrium. No doppler evidence for ASD. Mitral Valve There is mild to moderate mitral annular calcification. There is no mitral valve stenosis. No mitral valve insufficiency. Tricuspid Valve There is no tricuspid stenosis. Trivial tricuspid valve insufficiency. Unable to estimate RV systolic pressure due to insufficient tricuspid regurgitant envelope. Aortic Valve Trisinus/trileaflet aortic valve. Aortic sclerosis, no stenosis. There is no aortic stenosis. No aortic valve insufficiency. Pulmonic Valve There is no pulmonic valvular stenosis. No pulmonic valve insufficiency. Great Vessels Normal aortic root. Pericardium/Pleural No pericardial effusion. Medication Diluted definity 3ml given slow IV push to enhance endocardial definition. MMode/2D Measurements & Calculations LVIDd: 4.6 cm IVSd: 1.0 cm Ao root diam: 3.4 cm LVIDs: 3.0 cm LVPWd: 1.0 cm LA dimension: 3.6 cm FS: 34.6 % LAV(MOD-bp): 47.7 ml LA A4 area: 18.4 cm2 LAV(MOD-bp) Indexed: 23.0 ml/m2 LAV(MOD-sp2): 36.8 ml LAV(MOD-sp4): 49.3 ml Time Measurements MV dec time: 0.38 sec Doppler Measurements & Calculations MV E max conrad: 57.3 cm/sec Lat Peak E' Conrad: 8.9 cm/sec Med Peak E' Conrad: 5.6 cm/sec MV A max conrad: 110.4 cm/sec E/E' lat: 6.4 E/E' med: 10.2 MV E/A: 0.52 MV V2 max: 120.4 cm/sec MV P1/2t max conrad: 79.6 cm/sec Ao V2 max: 79.7 cm/sec MV max P.8 mmHg MV P1/2t: 136.5 msec Ao max P.5 mmHg MV V2 mean: 58.9 cm/sec MV dec slope: 170.8 cm/sec2 MV mean P.7 mmHg MV V2 VTI: 29.7 cm MVA(P1/2t): 1.6 cm2 LV V1 max: 79.3 cm/sec PA V2 max: 94.0 cm/sec LV V1 max P.5 mmHg LV V1 mean P.2 mmHg LV V1 mean: 51.8 cm/sec LV V1 VTI: 16.6 cm ECHO/Echo Complete W/ Contrast Interpretation Summary The estimated ejection fraction is 60 %. No evidence for diastolic dysfunction. Ordering Physician: Jr Tanner Referring Physician: Hans Bran Chi Performed By: Morris Hatfield RCS
--- NOTE | 2023-07-03 10:42 | CASEMGMT ---
Addendum entered by Dory Hernandez 07/03/23 11:16: Social Work Pt can go to [facility] tomorrow. PAS/RR w/results on chart along w/transport form and green sheet. Plan: Pt to [facility] skilled on Wednesday. JULIO Ramirez Original Note: Social Work SW called daughter in regard to discharge plan. SW explained that [facility] accepted, [place] has not yet given an answer. Daughter agreeable for pt going to [facility] when ready. SW spoke w/physician, pt may be ready tomorrow. SW sent a message to [facility] via [employer] to make sure they can take pt tomorrow. JULIO Ramirez
[2023-07-03 10:44] VITALS: BP 176/80; PULSE 65; RESP 17; TEMP 36.6; O2SAT 94
[2023-07-03] MEDS: Folic Acid 1 MG Tablet PO (10:51)
[2023-07-03] MEDS: Aspirin 81 MG TAB.CHEW PO (10:51)
[2023-07-03] MEDS: Memantine Hydrochloride 10 MG Tablet PO (10:51)
[2023-07-03] MEDS: Galantamine Hydrobromide 4 MG Tablet 8 MG PO ×2 (10:52→23:29)
[2023-07-03] MEDS: Clopidogrel Bisulfate 75 MG Tablet PO (10:52)
[2023-07-03 14:40] VITALS: BP 144/71; PULSE 68; RESP 17; TEMP 36.7; O2SAT 95
[2023-07-03 18:40] VITALS: BP 154/86; PULSE 64; RESP 16; TEMP 36.7; O2SAT 94
[2023-07-03 23:19] VITALS: BP 166/83; PULSE 60; RESP 18; TEMP 36.8; O2SAT 95
[2023-07-03] MEDS: Atorvastatin Calcium 80 MG Tablet PO (23:29)
[2023-07-04 02:40] VITALS: BP 188/89; PULSE 66; RESP 18; TEMP 36.4; O2SAT 96
[2023-07-04 03:56] VITALS: BMI 33.5
[2023-07-04 05:21] VITALS: BP 179/108; PULSE 63; RESP 18; TEMP 36.4; O2SAT 95
[2023-07-04] MEDS: 0.9% Saline Lock 10 ML Syringe IV (05:32)
[2023-07-04 05:59] LABS: Absolute Lymphocyte Count 1.83 X10^3/uL (0.83-4.51); Absolute Neutrophil Count 6.3 X10^3/uL (2.0-7.7); Basophil# 0.04 X10^3/uL; Basophil% 0.4 % (0-1); Eosinophil# 0.46 X10^3/uL; Hematocrit 43.3 % (40-54); Hemoglobin 15.2 g/dL (13.0-16.5); Lymphocyte # 1.83 X10^3/ul (0.83-4.51); Lymphocyte % 19.8 % (19-41); Mean Corp Hgb Conc 35.1 g/dL (32-36); Mean Corpuscular Hgb 34.7 pg (27.0-32.0); Mean Corpuscular Volume 98.9 fL (80-94); Mean Platelet Vol. 10.5 fl (6.2-12.0); Monocyte% 6.5 % (0-10); NRBC Flagged by Analyzer 0 % (0-5); Neutrophil # 6.25 X10^3/uL (2.7-7.7); Neutrophil % 67.8 % (47-70); Platelet Count 183 K/mm3 (150-450); RBC Distribution Width CV 12.7 % (11.6-14.6); RBC Distribution Width SD 46.5 fl (35.1-43.9); Red Blood Count 4.38 M/mm3 (4.6-6.2); White Blood Count 9.2 K/mm3 (4.4-11.0)
[2023-07-04 06:23] LABS: Anion Gap 5 (5-15); BUN 16 mg/dL (7-18); BUN/Creat Ratio 14.5 RATIO (10-20); Calcium,Total 8.6 mg/dL (8.5-10.1); Chloride 110 mmol/L (98-107); EST Glomerular Filtration Rate 68 mL/min (>60); Est Glom Filt Rate - Afr Amer 82 mL/min (>60); Estimated Creatinine Clearance 48.41 ml/min; Glucose 106 mg/dL (74-106); Potassium 3.6 mmol/L (3.5-5.1); Sodium Level 142 mmol/L (136-145)
[2023-07-04 09:00] VITALS: BP 169/84; PULSE 62; RESP 17; TEMP 36.7; O2SAT 94
[2023-07-04] MEDS: Enoxaparin 40 MG/0.4 ML Syringe SC (09:11)
[2023-07-04] MEDS: Aspirin 81 MG TAB.CHEW PO (09:11)
[2023-07-04] MEDS: Ensure Plus High Protein 120 ML LIQUID PO (09:11)
[2023-07-04] MEDS: Folic Acid 1 MG Tablet PO (09:11)
[2023-07-04] MEDS: Memantine Hydrochloride 10 MG Tablet PO (09:11)
[2023-07-04] MEDS: Galantamine Hydrobromide 4 MG Tablet 8 MG PO (09:12)
[2023-07-04] MEDS: Clopidogrel Bisulfate 75 MG Tablet PO (09:12)
--- NOTE | 2023-07-04 09:35 | TREXTCAR_ITS ---
Diet Diet Order/Speech Therapy: 07/01/23 20:49 Diet: Cardiac - Heart Healthy Food consistency:: Regular Liquid Consistency:: Regular/Thin Routine Orders/Code Status Suppository Type: Dulcolax 10mg Suppository Frequency: Daily PRN Code Status: DNRCC Therapies Weight Bearing: Weight bearing as tolerated Extremity Affected:: Bilateral Lower Physical Therapy: Eval and Treat Occupational Therapy: Eval and Treat Speech Therapy: Eval and Treat Problem/Diagnosis (1) CVA (cerebral vascular accident): Status: Acute Code(s): I63.9 - Cerebral infarction, unspecified Plan The patient is an 82 y/o M is admitted on 07/01/23 with history of onset of left upper extremity weakness with last known well per at approximately 9 AM prompting ED evaluation. #1. Left upper extremity weakness, LUE ataxia, L sided facial droop concerning for Acute CVA w/ Hx prior CVA with bilateral carotid stenosis: Patient is being admitted in PCU. PT, OT, speech therapy/swallow evaluation and management, nursing NIH stroke scale, BP and glucose monitoring and control as per stroke protocol. MRI brain shows subacute lacunar ischemic infarcts in the right periventricular white matter. A1c 5.9%. SOC neurology consult. Aspirin Plavix and high intensity statin. 07/03: SOC consult reviewed. Recommended outpatient vascular surgery consult to review ICA stenosis but patient does not need acute surgical intervention. Left ICA is more than 70% stenosis in right ICA 50 to 69% stenosis. #2. CAD: Status post CABG, continue aspirin, adding Plavix given presentation temporally, adding at least low-dose statin, holding Coreg and lisinopril for permissive hypertension temporarily. #3. Polycythemia vera: Admission CBC with hemoglobin 15.1, MCV 100.9, hemoglobin 14.5% #4. Chronic dementia of unclear type with unclear behavioral disturbance history: Complicates presentation, maintain on fall and aspiration precautions, PT/OT/case management consulted for discharge planning, will continue patient home memantine and galantamine regimen. #5. Hypertension: maintain permissive hypertension given presentation with parent agents per stroke protocol. #6. Hyperlipidemia: We will add low-dose statin, FLP, LDL 164, TG 187, HDL 33 #7. Obesity: Weight loss and lifestyle changes encouraged. #8. History of rectal cancer: Status postresection with colostomy, considered in remission. #9. GERD: We will have as needed Mylanta. #10. LEÓN: CPAP nightly. #11. DVT prophylaxis: Lovenox. #12. CODE status: Patient BRYAN is his daughter Bertha. Discussed CODE status at length including difference between FULL code, DNR-CCA and DNR-CC status. Following discussions about the differences in these status, requested DNR-CC status but is amenable to evaluation of his current presentation. Clinical Impression(s) from Imaging Studies Brain CT 07/01/23 14:45 IMPRESSION: Chronic involutional changes of the brain. of the brain. Head/Neck CTA 07/01/23 14:46 IMPRESSION: Moderate atherosclerotic plaque at the origin of the right internal carotid artery causing approximately 50-69% narrowing. Atherosclerotic plaque formation at the origin of the left internal carotid artery causing greater than 70% narrowing. Chest X-Ray 07/01/23 15:15 IMPRESSION: Mild increased markings at the lung bases worse on the left side suggestive bibasilar atelectasis and/or infiltrates. Blunting of the left costophrenic angle. Brain MRI 07/02/23 09:30 IMPRESSION: 1. Subacute lacunar ischemic infarcts in the right periventricular white matter. 2. Cystic atrophy of both temporal poles, right gyrus rectus and right middle frontal gyrus are from remote injury. 3. Multiple confluent chronic white matter ischemic changes in both cerebral hemispheres.. Allergies/Procedures Done in Hospital Allergies Penicillins Adverse Reaction (Verified 03/19/22 12:58) Unknown Type of Care/Length of Stay Estimated LOS: Convalescent Care Less Than 30 days Type of Care Needed: Skilled Rehab Potential: Good Prognosis: Good Additional Orders/Day of Discharge Day of Discharge: 07/04/23 Dietary and Speech Recommendations Dietitian Recommendations/Changes: Continue liberal Cardiac diet - add cho restriction if gluc >200 Will order 4 oz ensure plus high protein tid to help prevent additional wt loss if consumed. Speech Linguistic Eval Summary: Orientation - self, not oriented to year (stated 2001). Namin/5 common objects Dysarthria and word finding issues noted. Time Clock Reading - required cues 5 minute delayed recall of 3 related words - 0/3, increased to 1/3 with max cues antonyms - 3/3 Preadmission - pt was able to talk well prior to admit except for some slurred speech in the morning. Per daughter, slurred speech and word finding issues are new. Discharge Plan Admission Admit Date/Time: 07/01/23 18:31 Primary Reason for Your Visit: Acute stroke right parietal white matter. Attending Provider: Jr Tanner Primary Care Provider: Hans Bran Chi Consulting Providers: Esther Peck Instructions Additional Instructions / Restrictions: Avoid hypotension. Best to maintain SBP between 130 to 160 mmHg. Continue aspirin 81 mg and Plavix 75 mg for 90 days if patient cannot tolerate dual antiplatelet agent then aspirin 325 mg daily. Follow-up vascular surgery. Discharge Orders/Prescriptions Prescriptions: New atorvastatin 80 mg Tablet 80 mg PO QHS Qty: 0 0RF acetaminophen 325 mg Tablet 650 mg PO Q4H PRN PRN (Reason: Fever, pain 1-07/20) Qty: 0 0RF sennosides-docusate sodium [Stool Softener-Stimulant Laxat] 8.6-50 mg Tablet 2 tab PO BID PRN PRN (Reason: Constipation) Qty: 0 0RF clopidogrel 75 mg Tablet 75 mg PO DAILY Qty: 0 0RF Rx Instructions: Continue for 90 days until patient has bleeding/severe anemia or thrombocytopenia folic acid 1 mg Tablet 1 mg PO BREAKFAST Qty: 0 0RF menthol-zinc oxide [Calmoseptine] 0.44-20.6 % Ointment 1 applic topical 4X/DAY Qty: 0 0RF Protocol: *Topical Application Instructions APPLICATION INSTRUCTIONS: apply to affected reg ion albuterol sulfate 2.5 mg /3 mL (0.083 %) Solution For Nebulization 2.5 mg inhalation Q4H PRN (Reason: Dyspnea, wheezing) 30 Days Qty: 0 0RF Continued lisinopril 2.5 mg tablet 2.5 mg PO DAILY aspirin 81 MG tablet,chewable 81 mg PO DAILY@0800 cholecalciferol (vitamin D3) 2,000 UNIT capsule 2,000 unit PO DAILY galantamine 16 mg capsule,ext rel. pellets 24 hr PO memantine 10 mg tablet carvedilol 25 MG tablet 25 mg PO BID Qty: 0 0RF Rx Instructions: Hold for heart less than 50 or systolic blood pressure less than 120 mmHg. amlodipine 5 mg tablet 5 mg PO DAILY 30 Days Qty: 0 0RF Rx Instructions: Hold if systolic blood pressure less than 130 mmHg Changed furosemide 40 mg tablet 40 mg PO DAILY PRN (Reason: LEG SWELLING) 30 Days Qty: 0 0RF Rx Instructions: Hold for SBP less than Referrals / Follow Up: Daniel Gonzalez MD [Med Staff - Active Staff] - Within 2 Weeks (For bilateral carotid stenosis left severe right moderate. 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
--- NOTE | 2023-07-04 09:46 | DS.PCM_ITS ---
Providers Date of Admission: 07/01/23 Date of Discharge: 07/04/23 Primary Care Physician: Dr. 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 #1. Left upper extremity weakness, LUE ataxia, L sided facial droop concerning for Acute CVA w/ Hx prior CVA with bilateral carotid stenosis: Patient is being admitted in PCU. PT, OT, speech therapy/swallow evaluation and management, nursing NIH stroke scale, BP and glucose monitoring and control as per stroke protocol. MRI brain shows subacute lacunar ischemic infarcts in the right periventricular white matter. A1c 5.9%. SOC neurology consult. Aspirin Plavix and high intensity statin. 07/03: SOC consult reviewed. Recommended outpatient vascular surgery consult to review ICA stenosis but patient does not need acute surgical intervention. Left ICA is more than 70% stenosis in right ICA 50 to 69% stenosis. 07/04: Continue dual antiplatelet agent for 90 days if patient cannot tolerate to avoid severe anemia thrombocytopenia or bleeding. Follow-up neurology, Dr. Bentley within 30 days preferably 2 weeks. Follow-up vascular surgery Dr. Daniel Gonzalez in 2 weeks. High intensity statin ordered #2. CAD: Status post CABG, continue aspirin, adding Plavix given presentation temporally, adding at least low-dose statin, holding Coreg and lisinopril for permissive hypertension temporarily. #3. Polycythemia vera: Admission CBC with hemoglobin 15.1, MCV 100.9, hemoglobin 14.5% #4. Chronic dementia of unclear type with unclear behavioral disturbance history: Complicates presentation, maintain on fall and aspiration precautions, PT/OT/case management consulted for discharge planning, will continue patient home memantine and galantamine regimen. #5. Hypertension: maintain permissive hypertension given presentation with p arent agents per stroke protocol. #6. Hyperlipidemia:FLP, LDL 164, TG 187, HDL 33. Changed to high intensity atorvastatin 40 milligrams in the #7. Obesity: Weight loss and lifestyle changes encouraged. #8. History of rectal cancer: Status postresection with colostomy, considered in remission. #9. GERD: We will have as needed Mylanta. #10. LEÓN: CPAP nightly. #11. DVT prophylaxis: Lovenox. #12. CODE status: Patient BRYAN is his daughter Bertha. Discussed CODE status at length including difference between FULL code, DNR-CCA and DNR-CC status. Following discussions about the differences in these status, requested DNR-CC status but is amenable to evaluation of his current presentation. Discharge medication reconciliation done. Discharge follow-up instructions completed. Discharge process discussed with the patient and all questions were answered to patient's satisfaction. Total time spent, exact 35 minutes on discharge meds reconciliation, examination, coordination of care with nurses and ancillary staff, review of imaging and blood test and discussion with the patient on follow-up instructions. Clinical Impression(s) from Imaging Studies Brain CT 07/01/23 14:45 IMPRESSION: Chronic involutional changes of the brain. of the brain. Head/Neck CTA 07/01/23 14:46 IMPRESSION: Moderate atherosclerotic plaque at the origin of the right internal carotid artery causing approximately 50-69% narrowing. Atherosclerotic plaque formation at the origin of the left internal carotid artery causing greater than 70% narrowing. Chest X-Ray 07/01/23 15:15 IMPRESSION: Mild increased markings at the lung bases worse on the left side suggestive bibasilar atelectasis and/or infiltrates. Blunting of the left costophrenic angle. Brain MRI 07/02/23 09:30 IMPRESSION: 1. Subacute lacunar ischemic infarcts in the right periventricular white matter. 2. Cystic atrophy of both temporal poles, right gyrus rectus and right middle frontal gyrus are from remote injury. 3. Multiple confluent chronic white matter ischemic changes in both cerebral hemispheres.. Medications at Discharge Home Medications aspirin 81 mg chewable tablet 81 mg PO DAILY@0800 Heart health 12/24/14 cholecalciferol (vitamin D3) 50 mcg (2,000 unit) capsule 2,000 unit PO DAILY supple 07/08/20 lisinopril 2.5 mg tablet 2.5 mg PO DAILY htn 03/27/21 galantamine 16 mg 24 hr capsule,extended release mg PO . 07/01/23 memantine 10 mg tablet mg . 07/01/23 acetaminophen 325 mg tablet 650 mg (2 x 325 mg) PO Q4H PRN PRN Fever, pain 1- 07/20 #0 tabs 07/04/23 albuterol sulfate 2.5 mg/3 mL (0.083 %) solution for nebulization 2.5 mg (3 mL) inhalation Q4H PRN Dyspnea, wheezing 30 days #0 mL 07/04/23 amlodipine 5 mg tablet 5 mg PO DAILY heart 30 days #0 tabs 07/04/23 atorvastatin 80 mg tablet 80 mg PO QHS #0 tabs 07/04/23 carvedilol 25 mg tablet 25 mg PO BID hypokalemia #0 tabs 07/04/23 clopidogrel 75 mg tablet 75 mg PO DAILY #0 tabs 07/04/23 folic acid 1 mg tablet 1 mg PO BREAKFAST #0 tabs 07/04/23 furosemide 40 mg tablet 40 mg PO DAILY PRN LEG SWELLING 30 days #0 tabs 07/04/23 menthol 0.44 %-zinc oxide 20.6 % topical ointment (Calmoseptine) 1 applic topical 4X/DAY #0 grams 07/04/23 sennosides 8.6 mg-docusate sodium 50 mg tablet (Stool Softener-Stimulant Laxative) 2 tab PO BID PRN PRN Constipation #0 tabs 07/04/23 Physical Exam Narrative Patient is intermittently confused I think it is chronic possible dementia. Chronic comorbid issues. Physical Examination: General: Awake. Disoriented to place and person. HEENT: Atraumatic, PERRLA, EOMI, Normocephalic Oral: Oral mucosa moist. No Gingival or Mucosal Lesions/ Ulcerations Neck: Supple, No JVD, Negative Carotid Bruits Lungs: Air entry diminished in bilateral lung bases. No crepitation/rhonchi Cardiovascular: Regular rate, Regular Rhythm, Normal S1, Normal S2, systolic murmurs Abdomen: Bowel Sounds Present, Soft, Non Tender, Non-Distended. Colostomy with semisolid fecal matter. : No renal angle tenderness. No suprapubic tenderness. Extremities: No edema, Capillary Refill Less than 3 Seconds Skin: No rashes, No breakdown Musculoskeletal: No Tenderness to Palpation of Joints or Extremities Neurological: Mild facial paralysis. Left arm drift. Disoriented. Chronic lower extremity weakness with drift 4/5. Psych/Mental Status: Flat affect. Dementia Weight / BMI Weight Weight: 214 lb 4.629 oz Body Mass Index (BMI) 33.5 ABG / Lab / Microbiology Data 07/04/23 05:25 07/04/23 05:25 Laboratory: Laboratory Results - last 24 hr 07/04/23 05:25: WBC 9.2, RBC 4.38 L, Hgb 15.2, Hct 43.3, MCV 98.9 H, MCH 34.7 H, MCHC 35.1, RDW Std Deviation 46.5 H, RDW Coeff of Ksuh 12.7, Plt Count 183, MPV 10.5, Immature Gran % (Auto) 0.500, Neut % (Auto) 67.8, Lymph % (Auto) 19.8, [place] % (Auto) 6.5, Eos % (Auto) 5.0, Baso % (Auto) 0.4, Absolute Neuts (auto) 6.3, Absolute Lymphs (auto) 1.83, Nucleated RBC % 0, Sodium 142, Potassium 3.6, Chloride 110 H, Carbon Dioxide 27.0, Anion Gap 5, BUN 16, Creatinine 1.10, Estim Creat Clear Calc 48.41, Est GFR (MDRD) Af Amer 82, Est GFR (MDRD) Non-Af 68, BUN/Creatinine Ratio 14.5, Glucose 106, Calcium 8.6 Radiography Diagnostic Testing: Radiology Impression Echocardiogram 07/03/23 09:52 Interpretation Summary The estimated ejection fraction is 60 %. No evidence for diastolic dysfunction. Ordering Physician: Jr Tanner Referring Physician: Hans Bran Chi Performed By: Morris Hatfield RCS Meaningful Use Info Meaningful Use Diagnoses (Choose all that apply): Ischemic CVA CVA Therapy Assessed for PT,OT and/or ST?: Yes Ischemic Stroke Antithrombotic order at d/c?: Yes Dx of Atrial fib/flutter?: No Anticoagulant at discharge?: Yes Statins at discharge?: Yes Primary Dx Acute Ischemic CVA?: Yes Discharge Plan Admission Admit Date/Time: 07/01/23 18:31 Primary Reason for Your Visit: Acute stroke right parietal white matter. Attending Provider: Jr Tanner Primary Care Provider: Hans Bran Chi Consulting Providers: Esther Peck Instructions Additional Instructions / Restrictions: Avoid hypotension. Best to maintain SBP between 130 to 160 mmHg. Continue aspirin 81 mg and Plavix 75 mg for 90 days if patient cannot tolerate dual antiplatelet agent then aspirin 325 mg daily. Follow-up vascular surgery. Discharge Orders/Prescriptions Prescriptions: New atorvastatin 80 mg Tablet 80 mg PO QHS Qty: 0 0RF acetaminophen 325 mg Tablet 650 mg PO Q4H PRN PRN (Reason: Fever, pain 1-07/20) Qty: 0 0RF sennosides-docusate sodium [Stool Softener-Stimulant Laxat] 8.6-50 mg Tablet 2 tab PO BID PRN PRN (Reason: Constipation) Qty: 0 0RF clopidogrel 75 mg Tablet 75 mg PO DAILY Qty: 0 0RF Rx Instructions: Continue for 90 days until patient has bleeding/severe anemia or thrombocytopenia folic acid 1 mg Tablet 1 mg PO BREAKFAST Qty: 0 0RF menthol-zinc oxide [Calmoseptine] 0.44-20.6 % Ointment 1 applic topical 4X/DAY Qty: 0 0RF Protocol: *Topical Application Instructions APPLICATION INSTRUCTIONS: apply to affected region albuterol sulfate 2.5 mg /3 mL (0.083 %) Solution For Nebulization 2.5 mg inhalation Q4H PRN (Reason: Dyspnea, wheezing) 30 Days Qty: 0 0RF Continued lisinopril 2.5 mg tablet 2.5 mg PO DAILY aspirin 81 MG tablet,chewable 81 mg PO DAILY@0800 cholecalciferol (vitamin D3) 2,000 UNIT capsule 2,000 unit PO DAILY galantamine 16 mg capsule,ext rel. pellets 24 hr PO memantine 10 mg tablet carvedilol 25 MG tablet 25 mg PO BID Qty: 0 0RF Rx Instructions: Hold for heart less than 50 or systolic blood pressure less than 120 mmHg. amlodipine 5 mg tablet 5 mg PO DAILY 30 Days Qty: 0 0RF Rx Instructions: Hold if systolic blood pressure less than 130 mmHg Changed furosemide 40 mg tablet 40 mg PO DAILY PRN (Reason: LEG SWELLING) 30 Days Qty: 0 0RF Rx Instructions: Hold for SBP less than Referrals / Follow Up: Daniel Gonzalez MD [Med Staff - Active Staff] - Within 2 Weeks (For bilateral carotid stenosis left severe right moderate. Stroke.) Cristopher Bentley MD [Non-Staff -Ordering Privileges] - Within 1 Month (Stroke.) Hans Bran Chi, MD [Primary Care Provider] - Disposition Disposition (needs filled in before D/C Order can be placed): Nursing Home Facility Charges/Coding Visit Charges Inpatient E&M: 93629 Disch Hosp >30min
--- NOTE | 2023-07-04 11:29 | NURSING ---
Pt's Daughter, Katherine, called to check on patient; Katherine was informed that patient was being discharged to [facility] today around noon.
[2023-07-04 11:42] VITALS: BP 150/70; PULSE 65; RESP 17; TEMP 36.7; O2SAT 95
--- NOTE | 2023-07-04 12:03 | NURSING ---
Report called to WON Botello at [facility].
[2023-07-04 12:38] VITALS: BMI 33.5
== END 2023-07-04 12:12 | disposition skilled nursing facility (03) | DRG 66 ==
LOC: ED 18:31 → PCU 18:49
PROVIDERS: Admitting Provider Family Medicine; Emergency Provider Emergency Medicine; PCP Family Medicine Geriatric Medicine; Visit Provider Internal Medicine
DX: I63.313 Cerebral infarction due to thrombosis of bilateral middle cerebral arteries (principal); D45 Polycythemia vera; F03.90 Unspecified dementia, unspecified severity, without behavioral disturbance, psychotic disturbance, mood disturbance, and anxiety; G83.24 Monoplegia of upper limb affecting left nondominant side; Z93.3 Colostomy status; I10 Essential (primary) hypertension; I65.23 Occlusion and stenosis of bilateral carotid arteries; E78.5 Hyperlipidemia, unspecified; K21.9 Gastro-esophageal reflux disease without esophagitis; I25.10 Atherosclerotic heart disease of native coronary artery without angina pectoris; G47.33 Obstructive sleep apnea (adult) (pediatric); I25.2 Old myocardial infarction; E66.9 Obesity, unspecified; R29.703 NIHSS score 3; R29.706 NIHSS score 6; R29.810 Facial weakness; R27.0 Ataxia, unspecified; R29.6 Repeated falls; Z66 Do not resuscitate; Z68.33 Body mass index [BMI] 33.0-33.9, adult; Z95.1 Presence of aortocoronary bypass graft; Z90.49 Acquired absence of other specified parts of digestive tract; Z79.82 Long term (current) use of aspirin; Z79.899 Other long term (current) drug therapy; Z86.73 Personal history of transient ischemic attack (TIA), and cerebral infarction without residual deficits; Z85.048 Personal history of other malignant neoplasm of rectum, rectosigmoid junction, and anus; Z86.16 Personal history of COVID-19; Z87.891 Personal history of nicotine dependence
CPT/HCPCS: 36415; 70450; 70496; 70498; 70551; 71045; 80048; 80053; 80061; 83036; 83735; 84443; 84484; 85025; 85610; 85730; 92523; 92526; 92610; 93005; 93306; 93880; 94762; 97162; 97166; 97535; 97802; 99285; J7030; J7120; Q9957; Q9967; A4216; C8929